=== PATIENT | female | born 1945 | race American Indian/Alaskan Native ===

== ENCOUNTER 2016-06-07 14:02 | Emergency (ER) | payer MEDICARE ==
[2016-06-07] MEDS ORDERED: ClonazePAM 0.5 MG Tab PO ONE (14:21)
[2016-06-07 14:24] VITALS: BP 186/106
--- NOTE | 2016-06-07 14:27 | EDM.PDOC ---
ED HPI Behavioral Health - General Chief Complaint: Behavioral/Psych Stated Complaint: [id number] ANXIETY FELLS LIKE GOING TO PASS OUT Time Seen by Provider: 06/07/16 14:15 Source of Information: Reports: Patient Exam Limitations: Reports: No limitations - History of Present Illness INITIAL COMMENTS - FREE TEXT/NARRATIVE: This 70 yo female patient reports to the ED due to increased anxiety. The patient reports she ran out of Clonazepam and is feeling very anxious. The patient reports she normally sees her primary care facility every 3 months and is scheduled for an appointment next month. The patient reports she is supposed to be taking her Clonazepam 2 times per day, but has been taking an extra dose due to increased depression due to the holiday. The patient reports she has not been on any other medications for her symptoms. The patient also reports she has noticed some pain when she uses the bathroom over the past 2 days. Onset of Symptoms: Reports: gradual Duration of Symptoms: Reports: Constant, Getting worse Severity: severe Context, Behavioral Health: Reports: other Associated Symptoms: Reports: anxiety, depression - SAD Persons Scale (SPS) SPS Sex: Female SPS Age: Greater Than 65 Years of Age SPS Depression: Yes SPS Previous Suicide Attempts: No SPS Alcohol Abuse/Drug Abuse: No SPS Rational Thinking Loss: No SPS Social Support Deficit: No SPS Organized Suicide Plan: No SPS No Spouse/Significant Other: Yes SPS Sickness: No SPS Sad Person Scale Score: 3 - Related Data Allergies Allergy/AdvReac Type Severity Reaction Status Date / Time codeine Allergy Nausea and Verified 06/07/16 14:24 Vomiting ibuprofen [From Motrin] Allergy Stomach Verified 06/07/16 14:24 Upset NSAIDS (Non-Steroidal Allergy Cannot Verified 06/07/16 14:24 Anti-Inflamma Remember propoxyphene HCl Allergy Dizziness Verified 06/07/16 14:24 [From Darvon] Home Medications: Home Meds Fenofibric Acid (Choline) [Fenofibric Acid] 135 mg PO DAILY 02/02/13 [History] Metoprolol Tartrate 25 mg PO DAILY 02/02/13 [History] Simvastatin [Zocor] 40 mg PO BEDTIME 02/02/13 [History] Pregabalin [Lyrica] 1 tab PO BID 11/26/13 [History] Aspirin [Ecotrin] 325 mg PO DAILY 04/16/16 [History] Insulin Detemir [Levemir] 15 unit SQ BID 04/16/16 [History] Levothyroxine Sodium [Synthroid] 0.1 mg PO DAILY 04/16/16 [History] Magnesium Oxide 400 mg PO DAILY 04/16/16 [History] Promethazine [Phenergan] 25 mg PO Q8HR PRN 04/16/16 [History] clonazePAM [Clonazepam] 1 mg PO BID 04/16/16 [History] Past Medical History HEENT History: Reports: Hard of hearing, Other (see below) Other HEENT History: broken ear drum right ear Cardiovascular History: Reports: Bypass, CAD, High cholesterol Respiratory History: Reports: None Gastrointestinal History: Reports: None Genitourinary History: Reports: Other (see below) Other Genitourinary History: sees a kidney MD at [facility] and was told her kidneys are "ok" 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 Unsure of insulin's name. Hematologic History: Reports: None Immunologic History: Reports: None Oncologic (Cancer) History: Reports: None Dermatologic History: Reports: None - Infectious Disease History Infectious Disease History: Reports: Chicken pox - Past Surgical History HEENT Surgical History: Reports: Cataract surgery Other HEENT Surgeries/Procedures: right eye GI Surgical History: Reports: None Social & Family History - Family History Family Medical History: Noncontributory - Tobacco Use Smoking Status *Q: Current Every Day Smoker Years of Tobacco use: 50 Packs/Tins Daily: 0.7 Used Tobacco, but Quit: No Month Tobacco Last Used: May Second Hand Smoke Exposure: No - Caffeine Use Caffeine Use: Reports: Coffee - Alcohol Use Days Per Week of Alcohol Use: 0 - Recreational Drug Use Recreational Drug Use: No - Living Situation & Occupation Living situation: Reports: single ED ROS GENERAL - Review of Systems Review Of Systems: ROS reveals no pertinent complaints other than HPI. ED EXAM, BEHAVIORAL HEALTH - Physical Exam Exam: See Below Exam Limited By: No limitations General Appearance: alert, WD/WN, anxious, mild distress, thin Eye Exam: bilateral eye: EOMI, normal inspection, PERRL Ears: normal external exam, normal canal, hearing grossly normal, normal TMs Nose: normal inspection, normal mucosa, no blood Throat/Mouth: Normal inspection, Normal lips, Normal teeth, Normal gums, Normal oropharynx, Normal voice, No airway compromise Head: atraumatic, normocephalic Neck: normal inspection, supple, non-tender, full range of motion Respiratory/Chest: no respiratory distress, lungs clear, normal breath sounds, no accessory muscle use, chest non-tender Cardiovascular: normal peripheral pulses, regular rate, rhythm, no edema, no gallop, no JVD, no murmur, no rub GI/Abdominal: normal bowel sounds, soft, tender (mild lower abdominal tenderness to palpation.) (Female) Exam: Deferred Rectal (Female) Exam: Deferred Back Exam: normal inspection, full range of motion, NT Extremities: normal inspection, normal range of motion, non-tender, normal capillary refill, no pedal edema Neurological: alert, normal mood/affect, CN II-XII intact, normal cognition, no motor/sensory deficits, oriented x 3 Psychiatric: tearful, agitated Skin Exam: Warm, Dry, Normal color, No rash COURSE, BEHAVIORAL HEALTH COMP - Course Vital Signs: Last Vital Signs Temp 36.8 C 06/07/16 14:18 Pulse 90 06/07/16 14:18 Resp 22 H 06/07/16 14:18 BP 186/106 H 06/07/16 14:18 Pulse Ox 97 06/07/16 14:18 Orders, Labs, Meds: Laboratory Tests 06/07/16 06/07/16 06/07/16 Range/Units 14:32 14:32 14:44 WBC 7.8 (5.0-10.0) 10^3/uL RBC 5.41 H (4.2-5.4) 10^6/uL Hgb 16.1 H (12.0-16.0) g/dL Hct 48.6 H (37.0-47.0) % MCV 89.8 (80-100) fL MCH 29.8 (27.0-34.0) pg MCHC 33.1 (33.0-35.0) g/dL Plt Count 273 (150-450) 10^3/uL Neut % (Auto) 67.8 (42.2-75.2) % Lymph % (Auto) 25.7 (20.5-50.1) % [place] % (Auto) 4.2 (2-8) % Eos % (Auto) 1.7 (1.0-3.0) % Baso % (Auto) 0.6 (0.0-1.0) % Sodium 137 (135-145) mmol/L Potassium 4.3 (3.6-5.0) mmol/L Chloride 99 L (101-111) mmol/L Carbon Dioxide 28.0 (21.0-31.0) mmol/L Anion Gap 14.3 BUN 28 H (7-18) mg/dL Creatinine 1.5 H (0.6-1.3) mg/dL Est Cr Clr Drug Dosing TNP Estimated GFR (MDRD) 34 BUN/Creatinine Ratio 18.66 Glucose 215 H (74-105) mg/dL Calcium 9.3 (8.4-10.2) mg/dl Total Bilirubin 0.6 (0.2-1.0) mg/dL AST 24 (10-42) IU/L ALT 20 (10-60) IU/L Alkaline Phosphatase 46 (42-121) IU/L Total Protein 7.5 (6.7-8.2) g/dl Albumin 4.4 (3.2-5.5) g/dl Globulin 3.1 Albumin/Globulin Ratio 1.42 Urine Color Yellow (YELLOW) Urine Appearance Slightly cloudy (CLEAR) Urine pH 6.0 (5.0-9.0) Ur Specific [place] 1.020 (1.005-1.030) Urine Protein 100 H (NEGATIVE) Urine Glucose (UA) Negative (NEGATIVE) Urine Ketones Negative (NEGATIVE) Urine Occult Blood Trace-intact H (NEGATIVE) Urine Nitrite Negative (NEGATIVE) Urine Bilirubin Negative (NEGATIVE) Urine Urobilinogen 0.2 (0.2-1.0) mg/dL Ur Leukocyte Esterase Trace H (NEGATIVE) Urine RBC 0-5 /HPF Urine WBC 5-10 H (0-5/HPF) /HPF Ur Epithelial Cells Few /HPF Amorphous Sediment Few (0/HPF) /HPF Urine Bacteria Few (0-FEW/HPF) /HPF Medications Discontinued Medications Generic Name Dose Route Start Last Admin Trade Name Freq PRN Reason Stop Dose Admin Clonazepam 0.5 mg 06/07/16 14:21 06/07/16 14:34 Klonopin PO 06/07/16 14:22 0.5 mg ONETIME ONE Administration Departure - Departure Time of Disposition: 15:31 Disposition: Home, Self-Care 01 Condition: fair Clinical Impression: Anxiety, UTI, Urinary tract infectious disease Instructions: Panic Attacks, [id number], Urinary Tract Infection, Adult Forms: ED Department Discharge Care Plan Goals: The patient was advised of the examination and lab results during the visit. The patient was given an oral dose of Conazepam while in the emergency department. The patient was discharged with a script for Keflex (500 mg) #10 to take 1 by mouth 2 times per day for 5 days and Clonazepam (1 mg) #3 to take 1 by mouth every 8 hours. The patient should follow-up with her primary care facility within the week for continued evaluation and management.
[2016-06-07 14:58] LABS: CHLORIDE,CL 99 mmol/L (101-111); SODIUM,NA 137 mmol/L (135-145)
== END 2016-06-07 15:45 | disposition home or self-care (01) ==
LOC: DL.ED 14:02
DX: F41.9 Anxiety disorder, unspecified (principal); N39.0 Urinary tract infection, site not specified; F17.210 Nicotine dependence, cigarettes, uncomplicated; E11.9 Type 2 diabetes mellitus without complications; E03.9 Hypothyroidism, unspecified; E78.00 Pure hypercholesterolemia, unspecified; M19.90 Unspecified osteoarthritis, unspecified site; I25.10 Atherosclerotic heart disease of native coronary artery without angina pectoris; Z79.899 Other long term (current) drug therapy; Z79.82 Long term (current) use of aspirin; Z79.4 Long term (current) use of insulin; Z88.5 Allergy status to narcotic agent; Z98.49 Cataract extraction status, unspecified eye
CPT/HCPCS: 36415; 80053; 81001; 85025; 99283; A9270

== ENCOUNTER 2016-09-07 18:13 | Emergency (ER) | payer MEDICARE ==
[2016-09-07 18:23] VITALS: BP 127/70
--- NOTE | 2016-09-07 18:42 | EDM.PDOC ---
<Sundeep Olivas M - Last Filed: 09/07/16 18:36> ED HPI GENERAL MEDICAL PROBLEM - General Chief Complaint: General Stated Complaint: COMING IN OWN VEHICLE, VERY SICK Time Seen by Provider: 09/07/16 18:30 Source of Information: Reports: Patient History Limitations: Reports: No Limitations - History of Present Illness INITIAL COMMENTS - FREE TEXT/NARRATIVE: This 70 yo female patient reports to the ED with a cough (2 days), shortness of breath (2 days), nausea (2 days) and drainage from her right ear (1 week). The patient reports she was going to go to the clinic today, but she fell asleep. When she woke up, the clinic was closed. The patient reports she continues to smoke with no intention of quitting. The patient reports she has been taking Phenergan at home for her nausea. The patient reports she has not eaten anything since yesterday and has attempted to drink fluids. 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) (Phenergan (last dose 1000 today)) - Related Data Allergies Allergy/AdvReac Type Severity Reaction Status Date / Time codeine Allergy Nausea and Verified 09/07/16 18:23 Vomiting ibuprofen [From Motrin] Allergy Stomach Verified 09/07/16 18:23 Upset NSAIDS (Non-Steroidal Allergy Cannot Verified 09/07/16 18:23 Anti-Inflamma Remember propoxyphene HCl Allergy Dizziness Verified 09/07/16 18:23 [From Darvon] Home Meds: Home Meds Fenofibric Acid (Choline) [Fenofibric Acid] 135 mg PO DAILY 02/02/13 [History] Metoprolol Tartrate 25 mg PO DAILY 02/02/13 [History] Simvastatin [Zocor] 40 mg PO BEDTIME 02/02/13 [History] Pregabalin [Lyrica] 1 tab PO BID 11/26/13 [History] Aspirin [Ecotrin] 325 mg PO DAILY 04/16/16 [History] Insulin Detemir [Levemir] 14.5 unit SQ BID 04/16/16 [History] Levothyroxine Sodium [Synthroid] 0.1 mg PO DAILY 04/16/16 [History] Magnesium Oxide 400 mg PO DAILY 04/16/16 [History] Promethazine [Phenergan] 25 mg PO Q8HR PRN 04/16/16 [History] clonazePAM [Clonazepam] 1 mg PO BID 04/16/16 [History] Past Medical History HEENT History: Reports: Hard of Hearing, Other (See Below) Other HEENT History: broken ear drum right ear Cardiovascular History: Reports: Bypass, CAD, High Cholesterol Respiratory History: Reports: None Gastrointestinal History: Reports: None Genitourinary History: Reports: Other (See Below) Other Genitourinary History: sees a kidney MD at [facility] and was told her kidneys are "ok" 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 Unsure of insulin's name. Hematologic History: Reports: None Immunologic History: Reports: None Oncologic (Cancer) History: Reports: None Dermatologic History: Reports: None - Infectious Disease History Infectious Disease History: Reports: Chicken Pox - Past Surgical History HEENT Surgical History: Reports: Cataract Surgery GI Surgical History: Reports: None Social & Family History - Family History Family Medical History: Noncontributory - Tobacco Use Smoking Status *Q: Current Every Day Smoker Years of Tobacco use: 50 Packs/Tins Daily: 0.7 Used Tobacco, but Quit: No Month Tobacco Last Used: May Second Hand Smoke Exposure: No - Caffeine Use Caffeine Use: Reports: Coffee - Alcohol Use Days Per Week of Alcohol Use: 0 - Recreational Drug Use Recreational Drug Use: No - Living Situation & Occupation Living situation: Reports: Single ED ROS GENERAL - Review of Systems Review Of Systems: ROS reveals no pertinent complaints other than HPI. ED EXAM, GENERAL - Physical Exam Exam: See Below Exam Limited By: No Limitations General Appearance: Alert, WD/WN, Moderate Distress Eye Exam: Bilateral Eye: EOMI, Normal Inspection, PERRL Ears: Normal External Exam, Normal Canal, Hearing Grossly Normal, Other (Right TM is perforated with a small amount of fluid visible in canal) Nose: Normal Inspection, Normal Mucosa, No Blood Throat/Mouth: Normal Inspection, Normal Lips, Normal Teeth, Normal Gums, Normal Oropharynx, Normal Voice, No Airway Compromise Head: Atraumatic, Normocephalic Neck: Normal Inspection, Supple, Non-Tender, Full Range of Motion Respiratory/Chest: Chest Non-Tender, Decreased Breath Sounds (throughout), Rhonchi (diffuse) Cardiovascular: Normal Peripheral Pulses, Regular Rate, Rhythm, No Edema, No Gallop, No JVD, No Murmur, No Rub GI/Abdominal: Normal Bowel Sounds, Soft, Non-Tender, No Organomegaly, No Distention, No Abnormal Bruit, No Mass (Female) Exam: Deferred Rectal (Female) Exam: Deferred Back Exam: Normal Inspection, Full Range of Motion, NT Extremities: Normal Inspection, Normal Range of Motion, Non-Tender, Normal Capillary Refill, No Pedal Edema Neurological: Alert, Oriented, CN II-XII Intact, Normal Cognition, Normal Gait, No Motor/Sensory Deficits Psychiatric: Normal Affect, Normal Mood Skin Exam: Warm, Dry, Intact, Normal Color, No Rash Lymphatic: No Adenopathy Course - Vital Signs Last Recorded V/S: Last Vital Signs Temp 97.4 F 09/07/16 18:19 Pulse 83 09/07/16 18:19 Resp 16 09/07/16 18:19 BP 127/70 09/07/16 18:19 Pulse Ox 96 09/07/16 18:19 - Orders/Labs/Meds Labs: Laboratory Tests 09/07/16 09/07/16 09/07/16 Range/Units 18:50 18:50 18:55 WBC 9.3 (5.0-10.0) 10^3/uL RBC 5.60 H (4.2-5.4) 10^6/uL Hgb 16.4 H (12.0-16.0) g/dL Hct 50.2 H (37.0-47.0) % MCV 89.6 (80-100) fL MCH 29.3 (27.0-34.0) pg MCHC 32.7 L (33.0-35.0) g/dL Plt Count 311 (150-450) 10^3/uL Neut % (Auto) 61.9 (42.2-75.2) % Lymph % (Auto) 31.0 (20.5-50.1) % [place] % (Auto) 5.6 (2-8) % Eos % (Auto) 1.1 (1.0-3.0) % Baso % (Auto) 0.4 (0.0-1.0) % Sodium 140 (135-145) mmol/L Potassium 5.1 H (3.6-5.0) mmol/L Chloride 102 (101-111) mmol/L Carbon Dioxide 25.0 (21.0-31.0) mmol/L Anion Gap 18.1 BUN 21 H (7-18) mg/dL Creatinine 1.5 H (0.6-1.3) mg/dL Est Cr Clr Drug Dosing 27.60 mL/min Estimated GFR (MDRD) 34 BUN/Creatinine Ratio 14.00 Glucose 116 H (74-105) mg/dL Calcium 9.6 (8.4-10.2) mg/dl Total Bilirubin 0.7 (0.2-1.0) mg/dL AST 23 (10-42) IU/L ALT 19 (10-60) IU/L Alkaline Phosphatase 49 (42-121) IU/L Total Protein 7.3 (6.7-8.2) g/dl Albumin 4.3 (3.2-5.5) g/dl Globulin 3.0 Albumin/Globulin Ratio 1.43 Urine Color Dark yellow (YELLOW) Urine Appearance Cloudy (CLEAR) Urine pH 7.0 (5.0-9.0) Ur Specific [place] 1.020 (1.005-1.030) Urine Protein 100 H (NEGATIVE) Urine Glucose (UA) Negative (NEGATIVE) Urine Ketones Negative (NEGATIVE) Urine Occult Blood Negative (NEGATIVE) Urine Nitrite Negative (NEGATIVE) Urine Bilirubin Small H (NEGATIVE) Urine Urobilinogen 1.0 (0.2-1.0) mg/dL Ur Leukocyte Esterase Small H (NEGATIVE) Urine RBC 0-5 /HPF Urine WBC 10-20 H (0-5/HPF) /HPF Ur Epithelial Cells Few /HPF Urine Bacteria Moderate H (0-FEW/HPF) /HPF Hyaline Casts Rare H /LPF Urine Other See note Meds: Medications Discontinued Medications Generic Name Dose Route Start Last Admin Trade Name Freq PRN Reason Stop Dose Admin Benzonatate 200 mg 09/07/16 19:33 09/07/16 19:45 Tessalon Perles PO 09/07/16 19:34 200 mg ONETIME ONE Administration Ceftriaxone Sodium 1 gm/ 0 gm 09/07/16 19:33 09/07/16 19:46 Lidocaine HCl 2.1 ml IM 09/07/16 19:34 1 inj ONETIME ONE Administration Departure - Departure Disposition: Home, Self-Care 01 Clinical Impression: UTI, Urinary tract infectious disease Left lower lobe pneumonia Qualifiers: Pneumonia type: due to unspecified organism Qualified Code(s): J18.1 - Lobar pneumonia, unspecified organism Otitis media Qualifiers: Otitis media type: serous Chronicity: unspecified Laterality: right Qualified Code(s): H65.91 - Unspecified nonsuppurative otitis media, right ear - Discharge Information Instructions: Community-Acquired Pneumonia, Adult, Urinary Tract Infection, Adult Forms: ED Department Discharge Additional Instructions: augmentin 875 one twice daily for 10 days tesselon pearles 200mg one every 8 hours as needed for cough recheck clinic on Tuesday with potassium level Follow up sooner if difficulty breathing or fever uncontrolled with tylenol <Loan Gómez - Last Filed: 09/08/16 04:10> Course - Orders/Labs/Meds Meds: Medications Discontinued Medications Generic Name Dose Route Start Last Admin Trade Name Yoniq PRN Reason Stop Dose Admin Benzonatate 200 mg 09/07/16 19:33 09/07/16 19:45 Tessalon Perles PO 09/07/16 19:34 200 mg ONETIME ONE Administration Ceftriaxone Sodium 1 gm/ 0 gm 09/07/16 19:33 09/07/16 19:46 Lidocaine HCl 2.1 ml IM 09/07/16 19:34 1 inj ONETIME ONE Administration - Radiology Interpretation Free Text/Narrative:: CXR mild opacity in Left lower lobe may represent atelectasis or pneumonia Departure - Departure Time of Disposition: 19:27 Condition: Fair
[2016-09-07] MEDS ORDERED: cefTRIAXone 1 GM, Lidocaine 1% 2.1 ML IM ONE ×2 (19:33)
[2016-09-07] MEDS ORDERED: Benzonatate 100 MG Cap PO ONE (19:33)
== END 2016-09-07 20:02 | disposition home or self-care (01) ==
LOC: DL.ED 18:13
DX: J18.9 Pneumonia, unspecified organism (principal); N39.0 Urinary tract infection, site not specified; H65.91 Unspecified nonsuppurative otitis media, right ear; I25.10 Atherosclerotic heart disease of native coronary artery without angina pectoris; E78.00 Pure hypercholesterolemia, unspecified; Z95.1 Presence of aortocoronary bypass graft; M19.90 Unspecified osteoarthritis, unspecified site; E11.9 Type 2 diabetes mellitus without complications; E03.9 Hypothyroidism, unspecified; F41.9 Anxiety disorder, unspecified; F17.210 Nicotine dependence, cigarettes, uncomplicated; Z98.49 Cataract extraction status, unspecified eye; Z88.5 Allergy status to narcotic agent; Z88.6 Allergy status to analgesic agent; Z79.899 Other long term (current) drug therapy; Z79.82 Long term (current) use of aspirin
CPT/HCPCS: 36415; 71020; 80053; 81001; 85025; 96372; 99284; A9270; J0696

== ENCOUNTER 2017-02-24 06:23 | Emergency (ER) | payer MEDICARE ==
[2017-02-24] MEDS ORDERED: ClonazePAM 0.5 MG Tab PO ONE ×2 (06:46→08:25)
[2017-02-24] MEDS ORDERED: Sodium Chloride 0.9% 1,000 ML IV ONE (06:46)
[2017-02-24] MEDS ORDERED: Ondansetron 4 MG/2 ML SDV IV ONE (06:46)
--- NOTE | 2017-02-24 06:53 | EDM.PDOC ---
<Sundeep Olivas M - Last Filed: 02/24/17 06:48> ED HPI GENERAL MEDICAL PROBLEM - General Chief Complaint: General Stated Complaint: IN BY AMBULANCE Time Seen by Provider: 02/24/17 06:40 Source of Information: Reports: Patient, EMS History Limitations: Reports: No Limitations - History of Present Illness INITIAL COMMENTS - FREE TEXT/NARRATIVE: This 71 yo female patient was brought to the ED by [facility] due to increased nausea , weakness and her legs "picking". The patient states her symptoms started last night at 1800, she has been able to eat and drink, but just feels weak. The patient does admit to running out of her nerve medication. Onset Date: 02/23/17 Onset Time: 18:00 Duration: Constant Location: Reports: Generalized Quality: Reports: Other Severity: Moderate Improves with: Reports: None Worsens with: Reports: None Associated Symptoms: Reports: Nausea/Vomiting (vomiting x 1), Weakness - Related Data Allergies Allergy/AdvReac Type Severity Reaction Status Date / Time codeine Allergy Nausea and Verified 09/07/16 18:23 Vomiting ibuprofen [From Motrin] Allergy Stomach Verified 09/07/16 18:23 Upset NSAIDS (Non-Steroidal Allergy Cannot Verified 09/07/16 18:23 Anti-Inflamma Remember propoxyphene HCl Allergy Dizziness Verified 09/07/16 18:23 [From Darvon] Home Meds: Home Meds Fenofibric Acid (Choline) [Fenofibric Acid] 135 mg PO DAILY 02/02/13 [History] Metoprolol Tartrate 25 mg PO DAILY 02/02/13 [History] Simvastatin [Zocor] 40 mg PO BEDTIME 02/02/13 [History] Pregabalin [Lyrica] 1 tab PO BID 11/26/13 [History] Aspirin [Ecotrin] 325 mg PO DAILY 04/16/16 [History] Insulin Detemir [Levemir] 14.5 unit SQ BID 04/16/16 [History] Levothyroxine Sodium [Synthroid] 0.1 mg PO DAILY 04/16/16 [History] Magnesium Oxide 400 mg PO DAILY 04/16/16 [History] Promethazine [Phenergan] 25 mg PO Q8HR PRN 04/16/16 [History] clonazePAM [Clonazepam] 1 mg PO BID 04/16/16 [History] Past Medical History HEENT History: Reports: Hard of Hearing, Other (See Below) Other HEENT History: broken ear drum right ear Cardiovascular History: Reports: Bypass, CAD, High Cholesterol Respiratory History: Reports: None Gastrointestinal History: Reports: None Genitourinary History: Reports: Other (See Below) Other Genitourinary History: sees a kidney MD at 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 Unsure of insulin's name. Hematologic History: Reports: None Immunologic History: Reports: None Oncologic (Cancer) History: Reports: None Dermatologic History: Reports: None - Infectious Disease History Infectious Disease History: Reports: Chicken Pox - Past Surgical History HEENT Surgical History: Reports: Cataract Surgery GI Surgical History: Reports: None Social & Family History - Family History Family Medical History: Noncontributory - Tobacco Use Smoking Status *Q: Current Every Day Smoker Years of Tobacco use: 55 Packs/Tins Daily: 0.5 Used Tobacco, but Quit: No Month Tobacco Last Used: May Second Hand Smoke Exposure: No - Caffeine Use Caffeine Use: Reports: Coffee - Alcohol Use Days Per Week of Alcohol Use: 0 - Recreational Drug Use Recreational Drug Use: No - Living Situation & Occupation Living situation: Reports: Single ED ROS GENERAL - Review of Systems Review Of Systems: ROS reveals no pertinent complaints other than HPI. ED EXAM, GENERAL - Physical Exam Exam: See Below Exam Limited By: No Limitations General Appearance: Alert, WD/WN, Mild Distress, Obese Eye Exam: Bilateral Eye: EOMI, Normal Inspection, PERRL Ears: Normal External Exam, Normal Canal, Hearing Grossly Normal, Normal TMs Nose: Normal Inspection, Normal Mucosa, No Blood Throat/Mouth: Normal Inspection, Normal Lips, Normal Teeth, Normal Gums, Normal Oropharynx, Normal Voice, No Airway Compromise Head: Atraumatic, Normocephalic Neck: Normal Inspection, Supple, Non-Tender, Full Range of Motion Respiratory/Chest: No Respiratory Distress, Lungs Clear, Normal Breath Sounds, No Accessory Muscle Use, Chest Non-Tender Cardiovascular: Normal Peripheral Pulses, Regular Rate, Rhythm, No Edema, No Gallop, No JVD, No Murmur, No Rub GI/Abdominal: Normal Bowel Sounds, Soft, Non-Tender, No Organomegaly, No Distention, No Abnormal Bruit, No Mass (Female) Exam: Deferred Rectal (Female) Exam: Deferred Back Exam: Normal Inspection, Full Range of Motion, NT Extremities: Normal Inspection, Normal Range of Motion, Non-Tender, Normal Capillary Refill, No Pedal Edema Neurological: Alert, Oriented, CN II-XII Intact, Normal Cognition, Normal Gait, Normal Reflexes, No Motor/Sensory Deficits Psychiatric: Normal Affect, Normal Mood Skin Exam: Warm, Dry, Intact, Normal Color, No Rash Lymphatic: No Adenopathy Course - Vital Signs Last Recorded V/S: Last Vital Signs Temp 36.7 C 02/24/17 06:33 Pulse 72 02/24/17 07:56 Resp 18 02/24/17 07:56 BP 152/56 H 02/24/17 07:56 Pulse Ox 90 L 02/24/17 07:56 - Orders/Labs/Meds Orders: Active Orders 24 hr Category Date Time Status EKG Documentation Completion [RC] URGENT Care 02/24/17 06:33 Active Sodium Chloride 0.9% [Normal Saline] 1,000 ml Med 02/24/17 06:46 Active IV .BOLUS Medication Orders Sodium Chloride (Normal Saline) 1,000 mls @ 500 mls/hr IV .BOLUS ONE Stop: 02/24/17 08:45 Last Admin: 02/24/17 06:49 Dose: 500 mls/hr Labs: Laboratory Tests 02/24/17 02/24/17 02/24/17 Range/Units 06:35 06:35 07:35 WBC 10.5 H (5.0-10.0) 10^3/uL RBC 5.26 (4.2-5.4) 10^6/uL Hgb 15.4 (12.0-16.0) g/dL Hct 47.7 H (37.0-47.0) % MCV 90.7 (80-100) fL MCH 29.3 (27.0-34.0) pg MCHC 32.3 L (33.0-35.0) g/dL Plt Count 229 D (150-450) 10^3/uL Neut % (Auto) 72.7 (42.2-75.2) % Lymph % (Auto) 19.0 L (20.5-50.1) % [place] % (Auto) 3.7 (2-8) % Eos % (Auto) 4.0 H (1.0-3.0) % Baso % (Auto) 0.6 (0.0-1.0) % Sodium 136 (135-145) mmol/L Potassium 4.1 (3.6-5.0) mmol/L Chloride 100 L (101-111) mmol/L Carbon Dioxide 26.0 (21.0-31.0) mmol/L Anion Gap 14.1 BUN 21 H (7-18) mg/dL Creatinine 1.3 (0.6-1.3) mg/dL Est Cr Clr Drug Dosing TNP Estimated GFR (MDRD) 40 BUN/Creatinine Ratio 16.15 Glucose 276 H (74-105) mg/dL Calcium 8.7 (8.4-10.2) mg/dl Total Bilirubin 0.5 (0.2-1.0) mg/dL AST 29 (10-42) IU/L ALT 27 (10-60) IU/L Alkaline Phosphatase 91 (42-121) IU/L Troponin I < 0.02 (0.00-0.02) ng/ml Total Protein 6.8 (6.7-8.2) g/dl Albumin 3.6 (3.2-5.5) g/dl Globulin 3.2 Albumin/Globulin Ratio 1.13 Urine Color Yellow (YELLOW) Urine Appearance Cloudy (CLEAR) Urine pH 6.0 (5.0-9.0) Ur Specific [place] 1.025 (1.005-1.030) Urine Protein >=300 H (NEGATIVE) Urine Glucose (UA) Negative (NEGATIVE) Urine Ketones Negative (NEGATIVE) Urine Occult Blood Small H (NEGATIVE) Urine Nitrite Negative (NEGATIVE) Urine Bilirubin Negative (NEGATIVE) Urine Urobilinogen 0.2 (0.2-1.0) mg/dL Ur Leukocyte Esterase Trace H (NEGATIVE) Urine RBC 5-10 H /HPF Urine WBC 10-20 H (0-5/HPF) /HPF Ur Epithelial Cells Many H /HPF Urine Bacteria Moderate H (0-FEW/HPF) /HPF Urinalysis Comment Meds: Medications Generic Name Dose Route Start Last Admin Trade Name Freq PRN Reason Stop Dose Admin Sodium Chloride 1,000 mls @ 500 mls/hr 02/24/17 06:46 02/24/17 06:49 Normal Saline IV 02/24/17 08:45 500 mls/hr .BOLUS ONE Administration Discontinued Medications Generic Name Dose Route Start Last Admin Trade Name Freq PRN Reason Stop Dose Admin Clonazepam 0.5 mg 02/24/17 06:46 02/24/17 06:56 Klonopin PO 02/24/17 06:47 0.5 mg ONETIME ONE Administration Ondansetron HCl 4 mg 02/24/17 06:46 02/24/17 06:50 Zofran IV 02/24/17 06:47 4 mg ONETIME ONE Administration Departure - Departure Disposition: Home, Self-Care 01 Clinical Impression: Nausea and vomiting Qualifiers: Vomiting type: unspecified Vomiting Intractability: non-intractable Qualified Code(s): R11.2 - Nausea with vomiting, unspecified Benzodiazepine withdrawal Qualifiers: Complication of substance-induced condition: with unspecified complication Qualified Code(s): F13.239 - Sedative, hypnotic or anxiolytic dependence with withdrawal, unspecified - Discharge Information Instructions: Nausea and Vomiting, Adult, [id number] Forms: ED Department Discharge Additional Instructions: Rx: Clonazepam 1mg Rx: Zofran 4mg Follow up in clinic with your doctor for your medication refill and clonazepam management. <CathyPaul Michael - Last Filed: 02/24/17 08:22> ED HPI GENERAL MEDICAL PROBLEM - General Source of Information: Reports: Old Records, RN, RN Notes Reviewed - History of Present Illness INITIAL COMMENTS - FREE TEXT/NARRATIVE: Assumed care of pt from Sundeep SUNG at 0700HR shift change with pt feeling improved following tx in ER, but with lab results pending. Pt primarily concerned because she ran out of her clonazepam and that usually never happens to her because she follows closely with her doctor for medication management, but somehow with the holidays she ran out. Onset: Gradual ED EXAM, GENERAL - Physical Exam Exam Limited By: Other (No change to exam as documented by Sundeep SUNG for this encounter.) EKG INTERPRETATION EKG Date: 02/24/17 Time: 06:25 Rhythm: Other (SR) Rate (Beats/Min): 76 Arnold: Normal P-Wave: Present QRS: Normal ST-T: Other (borderline T wave abnl. in inferior leads) QT: Normal Comparison: NA - No Prior EKG EKG Interpretation Comments: No acute ischemic changes. Course - Orders/Labs/Meds Labs: Laboratory Tests 02/24/17 02/24/17 02/24/17 Range/Units 06:35 06:35 07:35 WBC 10.5 H (5.0-10.0) 10^3/uL RBC 5.26 (4.2-5.4) 10^6/uL Hgb 15.4 (12.0-16.0) g/dL Hct 47.7 H (37.0-47.0) % MCV 90.7 (80-100) fL MCH 29.3 (27.0-34.0) pg MCHC 32.3 L (33.0-35.0) g/dL Plt Count 229 D (150-450) 10^3/uL Neut % (Auto) 72.7 (42.2-75.2) % Lymph % (Auto) 19.0 L (20.5-50.1) % [place] % (Auto) 3.7 (2-8) % Eos % (Auto) 4.0 H (1.0-3.0) % Baso % (Auto) 0.6 (0.0-1.0) % Sodium 136 (135-145) mmol/L Potassium 4.1 (3.6-5.0) mmol/L Chloride 100 L (101-111) mmol/L Carbon Dioxide 26.0 (21.0-31.0) mmol/L Anion Gap 14.1 BUN 21 H (7-18) mg/dL Creatinine 1.3 (0.6-1.3) mg/dL Est Cr Clr Drug Dosing TNP Estimated GFR (MDRD) 40 BUN/Creatinine Ratio 16.15 Glucose 276 H (74-105) mg/dL Calcium 8.7 (8.4-10.2) mg/dl Total Bilirubin 0.5 (0.2-1.0) mg/dL AST 29 (10-42) IU/L ALT 27 (10-60) IU/L Alkaline Phosphatase 91 (42-121) IU/L Troponin I < 0.02 (0.00-0.02) ng/ml Total Protein 6.8 (6.7-8.2) g/dl Albumin 3.6 (3.2-5.5) g/dl Globulin 3.2 Albumin/Globulin Ratio 1.13 Urine Color Yellow (YELLOW) Urine Appearance Cloudy (CLEAR) Urine pH 6.0 (5.0-9.0) Ur Specific [place] 1.025 (1.005-1.030) Urine Protein >=300 H (NEGATIVE) Urine Glucose (UA) Negative (NEGATIVE) Urine Ketones Negative (NEGATIVE) Urine Occult Blood Small H (NEGATIVE) Urine Nitrite Negative (NEGATIVE) Urine Bilirubin Negative (NEGATIVE) Urine Urobilinogen 0.2 (0.2-1.0) mg/dL Ur Leukocyte Esterase Trace H (NEGATIVE) Urine RBC 5-10 H /HPF Urine WBC 10-20 H (0-5/HPF) /HPF Ur Epithelial Cells Many H /HPF Urine Bacteria Moderate H (0-FEW/HPF) /HPF Urinalysis Comment Influenza A/B: Negative Departure - Departure Time of Disposition: 08:16 Condition: Good
[2017-02-24 07:02] LABS: CHLORIDE,CL 100 mmol/L (101-111); SODIUM,NA 136 mmol/L (135-145)
[2017-02-24 07:57] VITALS: BP 152/56
--- NOTE | 2017-02-25 10:33 | EKG ---
02/24/2017 - RAVEN ARRINGTON - This 12-lead EKG shows normal sinus rhythm with a ventricular rate of 76. Normal axis and intervals. There are 1 mm Q-waves seen in the inferior leads, but there are no acute ST-T wave changes. Nonspecific T-wave changes in the lateral leads. [facility] /[id number]
== END 2017-02-24 09:00 | disposition home or self-care (01) ==
LOC: DL.ED 06:23
DX: R11.2 Nausea with vomiting, unspecified (principal); F13.239 Sedative, hypnotic or anxiolytic dependence with withdrawal, unspecified; E11.9 Type 2 diabetes mellitus without complications; E78.00 Pure hypercholesterolemia, unspecified; F17.210 Nicotine dependence, cigarettes, uncomplicated; Z88.5 Allergy status to narcotic agent; Z88.6 Allergy status to analgesic agent; Z88.8 Allergy status to other drugs, medicaments and biological substances
CPT/HCPCS: 36415; 80053; 81001; 84484; 85025; 87804; 93005; 93010; 96361; 96374; 99285; A9270; J2405; J7030; 99283

== ENCOUNTER 2017-03-14 06:43 | Day surgery (SDC) | payer MEDICARE, OTHER ==
[~2017-03-14 06:43] MED LIST: Dextrose 5%-0.45% NaCl 1,000 ML IV SCH; Midazolam 1 MG/ML 2 ML SDV ONE; Sodium Chloride 0.9% 10 ML Syringe FLUSH PRN; fentaNYL 100 MCG/2 ML SDV ONE
[2017-03-14] MEDS ORDERED: Midazolam 1 MG/ML 2 ML SDV IV ONE ×6 (06:44→07:45)
[2017-03-14] MEDS ORDERED: fentaNYL 100 MCG/2 ML SDV IV ONE ×3 (06:44→07:38)
[2017-03-14 08:28] VITALS: BP 120/86
--- NOTE | 2017-03-14 09:02 | OR ---
DATE: 03/14/2017 PROCEDURE: Total colonoscopy, NBI, and multiple snare polypectomies. INSTRUMENT USED: CF-H180 AL Olympus video colonoscope. PREMEDICATIONS: Fentanyl 100 mcg intravenous, Versed 4 mg intravenous. Nasal O2 cannula. The procedure was done under pulse oximetry, BP recording, and awning assembler. INDICATION: The patient with Hemoccult positive stools. Colonoscopic examination is done for detection of any polypoid lesions and removal, endoscopic hemostasis therapy if needed. DESCRIPTION OF PROCEDURE: Initial rectal exam showed anal sphincter to be a bit lax. Rigid anoscopy was normal. The colonoscope was passed with ease up to the ileocecal area, photographs were taken of the cecum showing 3 mm sized benign- appearing diminutive polyp, cold snare polypectomy was done, the tissue was retrieved and sent for histopathology. No bleeding was noted from any of the visualized areas at the commencement of the examination. No stricture. No vascular ectasia. No large isolated ulcerations seen. No evidence of diffuse inflammatory bowel disease in the form of friability, contact bleeding, or ulcerations. The examination was quite a bit compromised in a few areas due to the presence of large amount of fecal material that could not be aspirated clear. In the proximal descending colon, couple of 5 mm sized benign-appearing polyps were noted, cold snare polypectomies were done, the tissues were retrieved and sent for histopathology. In the mid sigmoid colon, more than 1 cm partially sessile benign-appearing polyp was noted, NBI views were obtained. Photographs were taken. Piecemeal polypectomy was done, the tissues were retrieved and sent for histopathology. Probing the proximal sides of folds and flexures, using adequate distention and clearing up the stool material, withdrawal of the scope was made. No bleeding was noted from any of the visualized areas at the completion of examination. IMPRESSION: Multiple colonic polyps. The patient tolerated the procedure well. [facility] /[id number]
--- NOTE | 2017-03-14 09:32 | LETTER ---
03/14/2017 YASMEEN H[facility] [address] [place] [address] RE: RAVEN MCKEON : 1945 Dear Ms: Jabari: Ms. Raven Mckeon had colonoscopic examination done this morning and she tolerated the procedure well. I herewith send a copy of the endoscopy note and photographs for your review. Thank you. Sincerely, [facility] /[id number]
== END 2017-03-14 10:47 | disposition home or self-care (01) ==
LOC: DL.ENDO 06:43
PROVIDERS: ATTEND Internal Medicine Gastroenterology
DX: D12.0 Benign neoplasm of cecum (principal); D12.4 Benign neoplasm of descending colon; D12.5 Benign neoplasm of sigmoid colon; E11.22 Type 2 diabetes mellitus with diabetic chronic kidney disease; I12.9 Hypertensive chronic kidney disease with stage 1 through stage 4 chronic kidney disease, or unspecified chronic kidney disease; N18.9 Chronic kidney disease, unspecified; F41.1 Generalized anxiety disorder; E03.9 Hypothyroidism, unspecified; E66.9 Obesity, unspecified; Z88.8 Allergy status to other drugs, medicaments and biological substances; F17.210 Nicotine dependence, cigarettes, uncomplicated; Z95.1 Presence of aortocoronary bypass graft; Z90.49 Acquired absence of other specified parts of digestive tract
CPT/HCPCS: 45385; 88305; J2250; J3010; J7042

== ENCOUNTER 2017-04-24 17:41 | Emergency (ER) | payer MEDICARE, OTHER ==
[2017-04-24] MEDS ORDERED: Ondansetron 4 MG Tab.DIS PO ONE (17:42)
[2017-04-24 17:56] VITALS: BP 115/60
[2017-04-24] MEDS ORDERED: Ondansetron 4 MG/2 ML SDV IV ONE (19:00)
[2017-04-24] MEDS ORDERED: Sodium Chloride 0.9% 1,000 ML IV ONE ×2 (19:00→20:25)
--- NOTE | 2017-04-24 19:07 | EDM.PDOC ---
ED HPI GENERAL MEDICAL PROBLEM - General Chief Complaint: Gastrointestinal Problem Stated Complaint: [id number] throwing up and going to bathroom nauseate Time Seen by Provider: 04/24/17 19:00 Source of Information: Reports: Patient History Limitations: Reports: No Limitations - History of Present Illness INITIAL COMMENTS - FREE TEXT/NARRATIVE: This 71 yo female patient reports to the ED with nausea, vomiting, diarrhea and abdominal pain. The patient reports her symptoms started at 1500 today with 1 episode of vomiting and 4-5 episodes of loose bowel movements. The patient reports she has diffuse abdominal cramping since her symptoms started. The patient reports she has not taken anything for symptom improvement at this time. Onset: Today Onset Date: 04/24/17 Onset Time: 15:00 Duration: Constant Location: Reports: Abdomen Quality: Reports: Other (cramping) Severity: Moderate Improves with: Reports: None Worsens with: Reports: None Associated Symptoms: Reports: Nausea/Vomiting - Related Data Allergies Allergy/AdvReac Type Severity Reaction Status Date / Time amitriptyline [From Elavil] Allergy Cannot Verified 03/14/17 07:12 Remember atenolol Allergy Cannot Verified 03/14/17 07:12 Remember codeine Allergy Nausea and Verified 03/14/17 07:12 Vomiting cyclobenzaprine Allergy Cannot Verified 03/14/17 07:12 [From Flexeril] Remember estradiol [From Estraderm] Allergy Cannot Verified 03/14/17 07:12 Remember ibuprofen [From Motrin] Allergy Stomach Verified 03/14/17 07:12 Upset NSAIDS (Non-Steroidal Allergy Cannot Verified 03/14/17 07:12 Anti-Inflamma Remember propoxyphene HCl Allergy Dizziness Verified 03/14/17 07:12 [From Darvon] trazodone Allergy Cannot Verified 03/14/17 07:12 Remember Home Meds: Home Meds Metoprolol Tartrate 25 mg PO DAILY 02/02/13 [History] Simvastatin [Zocor] 40 mg PO BEDTIME 02/02/13 [History] Pregabalin [Lyrica] 75 mg PO BID 11/26/13 [History] Aspirin [Ecotrin] 325 mg PO DAILY 04/16/16 [History] Insulin Detemir [Levemir] 15 unit SQ BID 04/16/16 [History] Levothyroxine Sodium [Synthroid] 100 mcg PO DAILY 04/16/16 [History] Magnesium Oxide 400 mg PO DAILY 04/16/16 [History] clonazePAM [Clonazepam] 1 mg PO BID PRN 04/16/16 [History] Multivitamin with Minerals [Multiple Vitamin] 1 tab PO DAILY 03/11/17 [History] Ondansetron 4 mg PO Q8H PRN 03/11/17 [History] Past Medical History HEENT History: Reports: Hard of Hearing, Other (See Below) Other HEENT History: broken ear drum right ear, WEARS CORRECTIVE LENS Cardiovascular History: Reports: Bypass, CAD, High Cholesterol, Hypertension Respiratory History: Reports: None Gastrointestinal History: Reports: None Other Gastrointestinal History: peptic ulcer disease Genitourinary History: Reports: Chronic Renal Insuffiency, Other (See Below) Other Genitourinary History: sees a kidney MD at [facility] and was told her kidneys are "ok" 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 Unsure of insulin's name. Hematologic History: Reports: None Immunologic History: Reports: None Oncologic (Cancer) History: Reports: None Dermatologic History: Reports: None - Infectious Disease History Infectious Disease History: Reports: Chicken Pox, Measles - Past Surgical History HEENT Surgical History: Reports: Cataract Surgery, Tonsillectomy Other HEENT Surgeries/Procedures: right eye Cardiovascular Surgical History: Reports: Coronary Artery Bypass Other Cardiovascular Surgeries/Procedures: s/p heart surgery GI Surgical History: Reports: None, Appendectomy, Cholecystectomy, Colonoscopy Female Surgical History: Reports: Section Other Musculoskeletal Surgeries/Procedures:: s/p lumbar spine surgery Social & Family History - Family History Family Medical History: Noncontributory - Tobacco Use Smoking Status *Q: Current Every Day Smoker Years of Tobacco use: 50 Packs/Tins Daily: 0.5 Used Tobacco, but Quit: No Month Tobacco Last Used: May Second Hand Smoke Exposure: No - Caffeine Use Caffeine Use: Reports: Coffee - Alcohol Use Days Per Week of Alcohol Use: 0 - Recreational Drug Use Recreational Drug Use: No Drug Use in Last 12 Months: No - Living Situation & Occupation Living situation: Reports: Single ED ROS GENERAL - Review of Systems Review Of Systems: ROS reveals no pertinent complaints other than HPI. ED EXAM, GI/ABD - Physical Exam Exam: See Below Exam Limited By: No Limitations General Appearance: Alert, WD/WN, Moderate Distress, Obese Eyes: Bilateral: Normal Appearance, EOMI Ears: Normal External Exam, Normal Canal, Hearing Grossly Normal, Normal TMs Nose: Normal Inspection, Normal Mucosa, No Blood Throat/Mouth: Normal Inspection, Normal Lips, Normal Teeth, Normal Gums, Normal Oropharynx, Normal Voice, No Airway Compromise Head: Atraumatic, Normocephalic Neck: Normal Inspection, Supple, Non-Tender, Full Range of Motion Respiratory/Chest: No Respiratory Distress, Lungs Clear, Normal Breath Sounds, No Accessory Muscle Use, Chest Non-Tender Cardiovascular: Normal Peripheral Pulses, Regular Rate, Rhythm, No Edema, No Gallop, No JVD, No Murmur, No Rub GI/Abdominal Exam: Normal Bowel Sounds, Soft, No Organomegaly, No Distention, No Abnormal Bruit, No Mass, Pelvis Stable, Tender (diffuse tenderness) (Female) Exam: Deferred Rectal (Female) Exam: Deferred Back Exam: Normal Inspection, Full Range of Motion, NT Extremities: Normal Inspection, Normal Range of Motion, Non-Tender, Normal Capillary Refill, No Pedal Edema Neurological: Alert, Oriented, CN II-XII Intact, Normal Cognition, Normal Gait, Normal Reflexes, No Motor/Sensory Deficits Psychiatric: Normal Affect, Normal Mood Skin Exam: Warm, Dry, Intact, Normal Color, No Rash Lymphatic: No Adenopathy Course - Vital Signs Last Recorded V/S: Last Vital Signs Temp 37.1 C 04/24/17 17:54 Pulse 93 04/24/17 17:54 Resp 18 04/24/17 17:54 BP 115/60 04/24/17 17:54 Pulse Ox 92 L 04/24/17 17:54 - Orders/Labs/Meds Orders: Active Orders 24 hr Category Date Time Status UA W/MICROSCOPIC [URIN] Stat Lab 04/24/17 19:00 Ordered Sodium Chloride 0.9% [Normal Saline] 1,000 ml Med 04/24/17 20:25 Ordered IV .BOLUS Medication Orders Sodium Chloride (Normal Saline) 1,000 mls @ 500 mls/hr IV .BOLUS ONE Stop: 04/24/17 22:24 Last Admin: 04/24/17 20:30 Dose: 500 mls/hr Labs: Laboratory Tests 04/24/17 04/24/17 04/24/17 Range/Units 18:41 19:08 19:08 WBC 15.2 H (5.0-10.0) 10^3/uL RBC 5.60 H (4.2-5.4) 10^6/uL Hgb 15.9 (12.0-16.0) g/dL Hct 49.3 H (37.0-47.0) % MCV 88.0 (80-100) fL MCH 28.4 (27.0-34.0) pg MCHC 32.3 L (33.0-35.0) g/dL Plt Count 225 (150-450) 10^3/uL Neut % (Auto) 86.5 H (42.2-75.2) % Lymph % (Auto) 7.0 L (20.5-50.1) % [place] % (Auto) 4.0 (2-8) % Eos % (Auto) 2.4 (1.0-3.0) % Baso % (Auto) 0.1 (0.0-1.0) % Sodium 135 (135-145) mmol/L Potassium 4.4 (3.6-5.0) mmol/L Chloride 99 L (101-111) mmol/L Carbon Dioxide 26.0 (21.0-31.0) mmol/L Anion Gap 14.4 BUN 30 H (7-18) mg/dL Creatinine 1.7 H (0.6-1.3) mg/dL Est Cr Clr Drug Dosing 24.01 mL/min Estimated GFR (MDRD) 30 BUN/Creatinine Ratio 17.64 Glucose 197 H (74-105) mg/dL POC Glucose 180 H (83-110) mg/dl Calcium 8.6 (8.4-10.2) mg/dl Total Bilirubin 0.5 (0.2-1.0) mg/dL AST 24 (10-42) IU/L ALT 27 (10-60) IU/L Alkaline Phosphatase 115 (42-121) IU/L Total Protein 6.9 (6.7-8.2) g/dl Albumin 3.6 (3.2-5.5) g/dl Globulin 3.3 Albumin/Globulin Ratio 1.09 Urine Color (YELLOW) Urine Appearance (CLEAR) Urine pH (5.0-9.0) Ur Specific [place] (1.005-1.030) Urine Protein (NEGATIVE) Urine Glucose (UA) (NEGATIVE) Urine Ketones (NEGATIVE) Urine Occult Blood (NEGATIVE) Urine Nitrite (NEGATIVE) Urine Bilirubin (NEGATIVE) Urine Urobilinogen (0.2-1.0) mg/dL Ur Leukocyte Esterase (NEGATIVE) 04/24/17 Range/Units 21:54 WBC (5.0-10.0) 10^3/uL RBC (4.2-5.4) 10^6/uL Hgb (12.0-16.0) g/dL Hct (37.0-47.0) % MCV (80-100) fL MCH (27.0-34.0) pg MCHC (33.0-35.0) g/dL Plt Count (150-450) 10^3/uL Neut % (Auto) (42.2-75.2) % Lymph % (Auto) (20.5-50.1) % [place] % (Auto) (2-8) % Eos % (Auto) (1.0-3.0) % Baso % (Auto) (0.0-1.0) % Sodium (135-145) mmol/L Potassium (3.6-5.0) mmol/L Chloride (101-111) mmol/L Carbon Dioxide (21.0-31.0) mmol/L Anion Gap BUN (7-18) mg/dL Creatinine (0.6-1.3) mg/dL Est Cr Clr Drug Dosing mL/min Estimated GFR (MDRD) BUN/Creatinine Ratio Glucose (74-105) mg/dL POC Glucose (83-110) mg/dl Calcium (8.4-10.2) mg/dl Total Bilirubin (0.2-1.0) mg/dL AST (10-42) IU/L ALT (10-60) IU/L Alkaline Phosphatase (42-121) IU/L Total Protein (6.7-8.2) g/dl Albumin (3.2-5.5) g/dl Globulin Albumin/Globulin Ratio Urine Color Yellow (YELLOW) Urine Appearance Slightly cloudy (CLEAR) Urine pH 5.5 (5.0-9.0) Ur Specific [place] 1.025 (1.005-1.030) Urine Protein >=300 H (NEGATIVE) Urine Glucose (UA) Negative (NEGATIVE) Urine Ketones Trace H (NEGATIVE) Urine Occult Blood Trace-lysed H (NEGATIVE) Urine Nitrite Negative (NEGATIVE) Urine Bilirubin Negative (NEGATIVE) Urine Urobilinogen 0.2 (0.2-1.0) mg/dL Ur Leukocyte Esterase Negative (NEGATIVE) Meds: Medications Generic Name Dose Route Start Last Admin Trade Name Freq PRN Reason Stop Dose Admin Sodium Chloride 1,000 mls @ 500 mls/hr 04/24/17 20:25 04/24/17 20:30 Normal Saline IV 04/24/17 22:24 500 mls/hr .BOLUS ONE Administration Discontinued Medications Generic Name Dose Route Start Last Admin Trade Name Freq PRN Reason Stop Dose Admin Sodium Chloride 1,000 mls @ 999 mls/hr 04/24/17 19:00 04/24/17 19:14 Normal Saline IV 04/24/17 20:00 999 mls/hr .BOLUS ONE Administration Ondansetron HCl 4 mg 04/24/17 19:00 04/24/17 19:14 Zofran IV 04/24/17 19:01 4 mg ONETIME ONE Administration Departure - Departure Time of Disposition: 22:15 Disposition: Home, Self-Care 01 Condition: Fair Clinical Impression: Gastroenteritis - Discharge Information Instructions: Viral Gastroenteritis, Adult, [id number] Forms: ED Department Discharge Care Plan Goals: The patient was advised of the examination and lab results during the visit. The patient was given IV fluids and IV Zofran while in the ED. The patient was discharged with Zofran ODT (4 mg) #2 to take 1 by mouth every 6 hours and a script for Zofran (4 mg) #10 to take 1 by mouth every 6 hours as needed for nausea. The patient was encouraged to stick to a BRAT diet (bananas, rice, applesauce and toast) over the next 48 hour with small frequent sips of fluid. If the patient has any additional symptoms or concerns, the patient should follow-up with her primary care facility or return to the ED. - My Orders Last 24 Hours: My Active Orders 04/24/17 19:00 UA W/MICROSCOPIC [URIN] Stat 04/24/17 20:25 Sodium Chloride 0.9% [Normal Saline] 1,000 ml IV .BOLUS - Assessment/Plan Last 24 Hours: My Active Orders 04/24/17 19:00 UA W/MICROSCOPIC [URIN] Stat 04/24/17 20:25 Sodium Chloride 0.9% [Normal Saline] 1,000 ml IV .BOLUS
[2017-04-24] MEDS ORDERED: Ondansetron 4 MG Tab.DIS ONE (22:17)
== END 2017-04-24 22:21 | disposition home or self-care (01) ==
LOC: DL.ED 17:41
DX: K52.9 Noninfective gastroenteritis and colitis, unspecified (principal); F17.210 Nicotine dependence, cigarettes, uncomplicated; I25.10 Atherosclerotic heart disease of native coronary artery without angina pectoris; E78.00 Pure hypercholesterolemia, unspecified; I12.9 Hypertensive chronic kidney disease with stage 1 through stage 4 chronic kidney disease, or unspecified chronic kidney disease; E11.22 Type 2 diabetes mellitus with diabetic chronic kidney disease; N18.9 Chronic kidney disease, unspecified; E03.9 Hypothyroidism, unspecified; Z95.1 Presence of aortocoronary bypass graft; Z79.4 Long term (current) use of insulin; Z79.82 Long term (current) use of aspirin; Z79.899 Other long term (current) drug therapy; Z88.5 Allergy status to narcotic agent; Z88.6 Allergy status to analgesic agent; Z88.8 Allergy status to other drugs, medicaments and biological substances
CPT/HCPCS: 36415; 80053; 81001; 82962; 85025; 96361; 96374; 99284; J2405; J7030; A9270-GY

== ENCOUNTER 2017-10-25 08:21 | Day surgery (SDC) | payer MEDICARE, OTHER ==
[2017-10-25] MEDS ORDERED: Sodium Chloride 0.9% 10 ML Syringe IV ONE (08:22)
[2017-10-25] MEDS ORDERED: Midazolam 1 MG/ML 2 ML SDV IV ONE (08:22)
[2017-10-25] MEDS ORDERED: EPINEPHrine 1 MG/ML SDV ONE (09:55)
[2017-10-25] MEDS ORDERED: Lidocaine 1% 30 ML SDV ONE (09:56)
[2017-10-25] MEDS ORDERED: Balanced Salt Solution Ophth Irrig 500 ML Bottle IOCULAR ONE (09:56)
[2017-10-25] MEDS ORDERED: Moxifloxacin 0.5% Ophth Soln 3 ML Bottle EYERT ONE ×2 (09:57→10:00)
[2017-10-25] MEDS ORDERED: Lidocaine 4% 5 ML Amp EYERT ONE ×2 (09:57→10:00)
[2017-10-25] MEDS ORDERED: Povidone-Iodine 5% Sterile Ophth Soln 30 ML Bottle EYERT ONE (09:58)
[2017-10-25] MEDS ORDERED: prednisoLONE Acetate 1% Ophth Susp 5 ML Bottle EYERT ONE (09:58)
[2017-10-25] MEDS ORDERED: Chondroitin Sulfate/Hyaluronate Sodium Ophth Inj 0.5 ML Syringe IOCULAR ONE (09:59)
[2017-10-25] MEDS ORDERED: Cataract Ophth Solution EYERT ONE (10:00)
[2017-10-25] MEDS ORDERED: Sodium Chloride 0.9% 10 ML Syringe FLUSH PRN (10:00)
--- NOTE | 2017-10-25 10:14 | PCM.OPNOTE ---
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 The patient was given topical Lidocaine 4% drops in the right eye. The patient was then prepped and draped in the sterile [facility] fashion. A wire lid speculum was placed in the right eye. A clear cornea temporal approach was used. A 1.1 mm chenega blade was used to make a paracentesis site around 11:00. Preservative-free Lidocaine 1% was injected intracamerally. Viscoelastic was placed in the anterior chamber. A 2.5 mm keratome blade was used to make a clear corneal incision around 9:00. A cystotome needle and Utrata forceps were used to perform continuous curvilinear capsulorhexis. Balanced Salt Solution was used to perform hydrodissection and hydrodelineation. The lens nucleus was removed using the divide and conquer phacoemulsification technique. Cumulative dissipated energy was 4.70. Remaining cortex was removed using irrigation- aspiration. Viscoelastic was placed in the capsular bag. PCBOO 23.5 diopter lens was then placed in the capsular bag. Remaining viscoelastic was removed using irrigation-aspiration. The lens was well centered in the capsular bag. The paracentesis and corneal incision were found to be water-tight. The patient was given topical Prednisolone and Vigamox drops. The speculum was removed and a shield was placed over the right eye. The patient was taken to recovery in stable condition. I certify that I was present for and performed the entire operative procedure. Alejo Noguera M.D.
[2017-10-25] MEDS ORDERED: Acetaminophen 325 MG Tab PO ONE (10:31)
[2017-10-25 11:33] VITALS: BP 138/61
== END 2017-10-25 11:25 | disposition home or self-care (01) ==
LOC: DL.SDS 08:21
PROVIDERS: ATTEND Ophthalmology
DX: E11.36 Type 2 diabetes mellitus with diabetic cataract (principal); H25.811 Combined forms of age-related cataract, right eye; H52.03 Hypermetropia, bilateral; H52.4 Presbyopia; H52.223 Regular astigmatism, bilateral; I12.9 Hypertensive chronic kidney disease with stage 1 through stage 4 chronic kidney disease, or unspecified chronic kidney disease; E11.22 Type 2 diabetes mellitus with diabetic chronic kidney disease; N18.3 Chronic kidney disease, stage 3 (moderate); E03.9 Hypothyroidism, unspecified; E11.40 Type 2 diabetes mellitus with diabetic neuropathy, unspecified; E55.9 Vitamin D deficiency, unspecified; E78.5 Hyperlipidemia, unspecified; K59.09 Other constipation; K21.9 Gastro-esophageal reflux disease without esophagitis; F41.9 Anxiety disorder, unspecified; F32.9 Major depressive disorder, single episode, unspecified; F17.210 Nicotine dependence, cigarettes, uncomplicated; Z79.82 Long term (current) use of aspirin; Z79.84 Long term (current) use of oral hypoglycemic drugs; Z79.899 Other long term (current) drug therapy; Z88.5 Allergy status to narcotic agent; Z88.8 Allergy status to other drugs, medicaments and biological substances
CPT/HCPCS: 00142; 66984; A9270; J0171; J2250; J7050; J2001; V2632

== ENCOUNTER 2018-04-06 23:38 | Emergency (ER) | payer MEDICARE, OTHER ==
[2018-04-06 23:58] VITALS: BP 159/75
[2018-04-07] MEDS ORDERED: Sodium Chloride 0.9% 10 ML Syringe FLUSH PRN (00:15)
[2018-04-07] MEDS ORDERED: ClonazePAM 0.5 MG Tab PO ONE (00:16)
[2018-04-07] MEDS ORDERED: Ondansetron 4 MG/2 ML SDV IV ONE (00:31)
[2018-04-07 00:39] LABS: ANION GAP 15.7; CHLORIDE,CL 101 mmol/L (101-111); SODIUM,NA 137 mmol/L (135-145)
--- NOTE | 2018-04-07 01:03 | EDM.PDOC ---
ED HPI GENERAL MEDICAL PROBLEM - General Chief Complaint: Gastrointestinal Problem Stated Complaint: CANT KEEP ANYTHING DOWN [id number] Time Seen by Provider: 04/07/18 00:08 Source of Information: Reports: Patient, RN, RN Notes Reviewed History Limitations: Reports: No Limitations - History of Present Illness INITIAL COMMENTS - FREE TEXT/NARRATIVE: Pt to ER with c/o nausea. She states it comes and goes. Patient was seen on 03/23 and instructed to follow up for GI consult. Pt states she did call her primary and is waiting to hear back on referral for GI consult. Patient states her appetite has been decreased for the past few days, only able to eat crackers. She states she does not vomit, but dry heaves. She also admits to weakness. Patient states she is trying to drink fluids. C/o pain in the umbilical area, RUQ, RLQ. Denies fever, chills, diarrhea, vomiting, chest pains , or SOB. Patient states she still has her gallbladder. Also states she is diabetic and her blood sugars have been running a little low. Patient c/o anxiety at this time. Onset: Today, Sudden Duration: Intermittent Location: Reports: Abdomen - Related Data Allergies Allergy/AdvReac Type Severity Reaction Status Date / Time amitriptyline [From Elavil] Allergy Cannot Verified 04/06/18 23:58 Remember atenolol Allergy Cannot Verified 04/06/18 23:58 Remember codeine Allergy Nausea and Verified 04/06/18 23:58 Vomiting cyclobenzaprine Allergy Cannot Verified 04/06/18 23:58 [From Flexeril] Remember estradiol [From Estraderm] Allergy Cannot Verified 04/06/18 23:58 Remember ibuprofen [From Motrin] Allergy Stomach Verified 04/06/18 23:58 Upset NSAIDS (Non-Steroidal Allergy Cannot Verified 04/06/18 23:58 Anti-Inflamma Remember propoxyphene HCl Allergy Dizziness Verified 04/06/18 23:58 [From Darvon] trazodone Allergy Cannot Verified 04/06/18 23:58 Remember Home Meds: Home Meds Metoprolol Tartrate 25 mg PO DAILY 02/02/13 [History] Simvastatin [Zocor] 40 mg PO BEDTIME 02/02/13 [History] Pregabalin [Lyrica] 75 mg PO BID 11/26/13 [History] Aspirin [Ecotrin] 325 mg PO DAILY 04/16/16 [History] Levothyroxine Sodium [Synthroid] 100 mcg PO DAILY 04/16/16 [History] Magnesium Oxide 400 mg PO DAILY 04/16/16 [History] clonazePAM [Clonazepam] 1 mg PO BID PRN 04/16/16 [History] Multivitamin with Minerals [Multiple Vitamin] 1 tab PO DAILY 03/11/17 [History] Ondansetron 4 mg PO Q8H PRN 03/11/17 [History] Ergocalciferol (Vitamin D2) [Vitamin D2] 1 tab PO .MONTHLY 12/28/17 [History] Fenofibrate Nanocrystallized [Tricor] 135 mg PO DAILY 12/28/17 [History] Insulin Detemir [Levemir Flextouch] 20 units SQ BEDTIME 12/28/17 [History] Cholecalciferol (Vitamin D3) [Vitamin D3] 1,000 units PO DAILY 03/23/18 [History ] Losartan [Cozaar] 50 mg PO DAILY 03/23/18 [History] Pioglitazone [Actos] 15 mg PO DAILY 03/23/18 [History] Past Medical History HEENT History: Reports: Allergic Rhinitis, Cataract, Glaucoma, Hard of Hearing, Other (See Below) Other HEENT History: broken ear drum right ear, WEARS CORRECTIVE LENS Cardiovascular History: Reports: Bypass, CAD, High Cholesterol, Hypertension, [place] , Other (See Below) Other Cardiovascular History: abnormal heart rythm Respiratory History: Reports: Bronchitis, Recurrent Gastrointestinal History: Reports: Chronic Constipation Other Gastrointestinal History: peptic ulcer disease Genitourinary History: Reports: Chronic Renal Insuffiency, Other (See Below) Other Genitourinary History: sees a kidney MD at [facility] and was told her kidneys are "ok". Hx of microalbuminuria CARGO TRIMMER History: Reports: , Spontaneous , Other (See Below) Other CARGO TRIMMER History: c section X1. breast lumpectomy Musculoskeletal History: Reports: Arthritis, Back Pain, Chronic, Other (See Below) Other Musculoskeletal History: Arthritis in fingers. Left hip bursitis. General weakness. muscle tear of left external oblique. Joint pain left thigh and pelvic region. mild central and bilateral foramnal L5-S1 spinal stenosis with ligamentum flavum hypertrophy. lumbar spondylosis Neurological History: Reports: Headaches, Chronic, Vertigo Psychiatric History: Reports: Anxiety, Depression Endocrine/Metabolic History: Reports: Diabetes, Type II, Hypothyroidism, Obesity /BMI 30+ Other Endocrine/Metabolic History: Takes insulin in am and bedtime. Unsure of insulin's name. Hematologic History: Reports: Anemia, Other (See Below) Other Hematologic History: Hx of hypernatremia Immunologic History: Reports: None Oncologic (Cancer) History: Reports: None Dermatologic History: Reports: None - Infectious Disease History Infectious Disease History: Reports: Chicken Pox, Measles, Shingles - Past Surgical History HEENT Surgical History: Reports: Cataract Surgery, Tonsillectomy Other HEENT Surgeries/Procedures: right eye Cardiovascular Surgical History: Reports: Coronary Artery Bypass, Coronary Artery Stent Other Cardiovascular Surgeries/Procedures: s/p heart surgery Respiratory Surgical History: Reports: None GI Surgical History: Reports: None, Appendectomy, Cholecystectomy, Colonoscopy Female Surgical History: Reports: Breast Biopsy, Section Other Musculoskeletal Surgeries/Procedures:: s/p lumbar spine surgery Social & Family History - Family History Family Medical History: Noncontributory - Tobacco Use Smoking Status *Q: Heavy Tobacco Smoker Years of Tobacco use: 50 Packs/Tins Daily: 1 - Caffeine Use Caffeine Use: Reports: Coffee Caffeine Use Comment: 8 oz daily - Recreational Drug Use Recreational Drug Use: No - Living Situation & Occupation Living situation: Reports: Single ED ROS GENERAL - Review of Systems Review Of Systems: ROS reveals no pertinent complaints other than HPI. ED EXAM, GI/ABD - Physical Exam Exam: See Below Exam Limited By: No Limitations General Appearance: Alert, WD/WN, No Apparent Distress Eyes: Bilateral: Normal Appearance, EOMI Ears: Normal External Exam, Hearing Grossly Normal Nose: Normal Inspection Throat/Mouth: Normal Inspection, Normal Voice, No Airway Compromise, Other (dry mucous membranes) Head: Atraumatic, Normocephalic Neck: Normal Inspection, Supple, Non-Tender, Full Range of Motion Respiratory/Chest: No Respiratory Distress, Lungs Clear, Normal Breath Sounds, No Accessory Muscle Use, Chest Non-Tender Cardiovascular: Normal Peripheral Pulses, Regular Rate, Rhythm, No Edema, No Gallop, No JVD, No Murmur, No Rub GI/Abdominal Exam: Normal Bowel Sounds, Soft, Tender (RUQ, RLQ) (Female) Exam: Deferred Rectal (Female) Exam: Deferred Back Exam: Normal Inspection, Decreased Range of Motion Extremities: Normal Inspection, Non-Tender, No Pedal Edema, Normal Capillary Refill, Limited Range of Motion Neurological: Alert, Oriented, CN II-XII Intact, Normal Cognition Psychiatric: Anxious Skin Exam: Warm, Dry, Intact, Normal Color, No Rash Lymphatic: No Adenopathy Course - Vital Signs Last Recorded V/S: Last Vital Signs Temp 97.4 F 04/06/18 23:51 Pulse 81 04/06/18 23:51 Resp 18 04/06/18 23:51 BP 159/75 H 04/06/18 23:51 Pulse Ox 97 04/06/18 23:51 - Orders/Labs/Meds Orders: Active Orders 24 hr Category Date Time Status Peripheral IV Care [RC] . DIRECTED Care 04/07/18 00:15 Active CULTURE URINE [RM] Stat Lab 04/07/18 00:28 Received Sodium Chloride 0.9% [Saline Flush] Med 04/07/18 00:15 Active 10 ml FLUSH ASDIRECTED PRN Peripheral IV Insertion Adult [OM.PC] Stat Oth 04/07/18 00:15 Ordered Medication Orders Sodium Chloride (Saline Flush) 10 ml FLUSH ASDIRECTED PRN PRN Reason: Keep Vein Open Last Admin: 04/07/18 00:27 Dose: 10 ml Labs: Laboratory Tests 04/07/18 04/07/18 04/07/18 Range/Units 00:00 00:00 00:28 WBC 10.0 (5.0-10.0) 10^3/uL RBC 4.67 (4.2-5.4) 10^6/uL Hgb 14.1 (12.0-16.0) g/dL Hct 43.4 (37.0-47.0) % MCV 92.9 (80-100) fL MCH 30.2 (27.0-34.0) pg MCHC 32.5 L (33.0-35.0) g/dL Plt Count 338 (150-450) 10^3/uL Neut % (Auto) 70.1 (42.2-75.2) % Lymph % (Auto) 22.3 (20.5-50.1) % Park % (Auto) 5.3 (2-8) % Eos % (Auto) 2.0 (1.0-3.0) % Baso % (Auto) 0.3 (0.0-1.0) % Sodium 137 (135-145) mmol/L Potassium 4.7 (3.6-5.0) mmol/L Chloride 101 (101-111) mmol/L Carbon Dioxide 25.0 (21.0-31.0) mmol/L Anion Gap 15.7 BUN 25 H (7-18) mg/dL Creatinine 1.8 H (0.6-1.3) mg/dL Est Cr Clr Drug Dosing 22.34 mL/min Estimated GFR (MDRD) 28 BUN/Creatinine Ratio 13.88 Glucose 106 H (74-105) mg/dL Calcium 8.8 (8.4-10.2) mg/dl Total Bilirubin 0.9 (0.2-1.0) mg/dL AST 28 (10-42) IU/L ALT 20 (10-60) IU/L Alkaline Phosphatase 52 (42-121) IU/L Troponin I < 0.02 (0.00-0.02) ng/ml Total Protein 7.4 (6.7-8.2) g/dl Albumin 3.7 (3.2-5.5) g/dl Globulin 3.7 Albumin/Globulin Ratio 1.00 Amylase 24 L (28-100) U/L Lipase 32 (22-51) U/L Urine Color Yellow (YELLOW) Urine Appearance Turbid (CLEAR) Urine pH 6.0 (5.0-9.0) Ur Specific [place] >= 1.030 (1.005-1.030) Urine Protein >=300 H (NEGATIVE) Urine Glucose (UA) Negative (NEGATIVE) Urine Ketones Negative (NEGATIVE) Urine Occult Blood Small H (NEGATIVE) Urine Nitrite Negative (NEGATIVE) Urine Bilirubin Negative (NEGATIVE) Urine Urobilinogen 1.0 (0.2-1.0) mg/dL Ur Leukocyte Esterase Negative (NEGATIVE) Urine RBC 0-5 /HPF Urine WBC 5-10 H (0-5/HPF) /HPF Ur Epithelial Cells Few /HPF Amorphous Sediment Few (0/HPF) /HPF Urine Bacteria Many H (0-FEW/HPF) /HPF Urine Mucus Few H /LPF Meds: Medications Generic Name Dose Route Start Last Admin Trade Name Freq PRN Reason Stop Dose Admin Sodium Chloride 10 ml 04/07/18 00:15 04/07/18 00:27 Saline Flush FLUSH 10 ml ASDIRECTED PRN Administration Keep Vein Open Discontinued Medications Generic Name Dose Route Start Last Admin Trade Name Freq PRN Reason Stop Dose Admin Clonazepam 0.5 mg 04/07/18 00:16 04/07/18 00:27 Klonopin PO 04/07/18 00:17 0.5 mg ONETIME ONE Administration Metoclopramide HCl 10 mg 04/07/18 02:49 04/07/18 02:51 Reglan IVPUSH 04/07/18 02:50 10 mg ONETIME ONE Administration Ondansetron HCl 4 mg 04/07/18 00:31 04/07/18 00:38 Zofran IV 04/07/18 00:32 4 mg ONETIME ONE Administration Sucralfate 1 gm 04/07/18 03:07 Carafate PO 04/07/18 03:08 ONETIME ONE - Radiology Interpretation Free Text/Narrative:: CT Abdomen/Pelvis without contrast (due to elevated creatinine): FINDINGS: Lower thorax: Status post open heart surgery ABDOMEN: Liver: Normal. No mass. Gallbladder and bile ducts: Status post cholecystectomy. Pancreas: Normal. No ductal dilation. Spleen: Normal. No splenomegaly. Adrenals: Normal. No mass. Kidneys and ureters: Normal. No hydronephrosis. Stomach and bowel: Normal. No obstruction. No mucosal thickening. Appendix: Status post appendectomy. PELVIS: Bladder: Unremarkable as visualized. Reproductive: Unremarkable as visualized. ABDOMEN and PELVIS: Intraperitoneal space: Normal. No free air. No significant fluid collection. Bones/joints: No acute fracture. No dislocation. Soft tissues: Unremarkable. Vasculature: 3.1 cm infrarenal abdominal aortic aneurysm without evidence for leakage Lymph nodes: Normal. No enlarged lymph nodes. IMPRESSION: 1. 3.1 cm infrarenal abdominal aortic aneurysm. No evidence for leakage 2. Otherwise unremarkable CT scan of the abdomen and pelvis Thank you for allowing us to participate in the care of your patient. Dictated and Authenticated by: Michael Christianson MD 04/07/2018 3:01 AM Central Time ([place] & [place]) See rad report Departure - Departure Time of Disposition: 03:05 Disposition: Home, Self-Care 01 Condition: Fair Clinical Impression: Nausea - Discharge Information *PRESCRIPTION DRUG MONITORING PROGRAM REVIEWED*: No *COPY OF PRESCRIPTION DRUG MONITORING REPORT IN PATIENT BEN: No Instructions: Nausea, Adult, [id number] Forms: ED Department Discharge Additional Instructions: RX: Carafate Follow up with your primary care facility for GI consult Avoid coffee, tea, caffeinated beverages, chocolate, spicy foods. - My Orders Last 24 Hours: My Active Orders 04/07/18 00:15 Peripheral IV Care [RC] . DIRECTED Sodium Chloride 0.9% [Saline Flush] 10 ml FLUSH ASDIRECTED PRN Peripheral IV Insertion Adult [OM.PC] Stat 04/07/18 00:28 CULTURE URINE [RM] Stat - Assessment/Plan Last 24 Hours: My Active Orders 04/07/18 00:15 Peripheral IV Care [RC] . DIRECTED Sodium Chloride 0.9% [Saline Flush] 10 ml FLUSH ASDIRECTED PRN Peripheral IV Insertion Adult [OM.PC] Stat 04/07/18 00:28 CULTURE URINE [RM] Stat
[2018-04-07] MEDS ORDERED: Metoclopramide 10 MG/2 ML SDV IVPUSH ONE (02:49)
[2018-04-07] MEDS ORDERED: Sucralfate 1 GM Tab PO ONE (03:07)
== END 2018-04-07 03:27 | disposition home or self-care (01) ==
LOC: DL.ED 23:38
DX: R11.0 Nausea (principal); I10 Essential (primary) hypertension; I25.2 Old myocardial infarction; F17.210 Nicotine dependence, cigarettes, uncomplicated; Z88.5 Allergy status to narcotic agent; Z88.8 Allergy status to other drugs, medicaments and biological substances; Z79.899 Other long term (current) drug therapy
CPT/HCPCS: 36415; 74176; 80053; 81001; 82150; 83690; 84484; 85025; 87086; 96374; 96375; 99284; A9270; J2405; J2765

== ENCOUNTER 2019-05-15 21:51 | Inpatient (IN) | payer MEDICARE, OTHER ==
[2019-05-15] MEDS ORDERED: Sodium Chloride 0.9% 1,000 ML IV ONE (22:14)
[2019-05-15] MEDS ORDERED: Acetaminophen 325 MG Tab PO ONE (22:18)
[2019-05-15 22:58] LABS: ANION GAP 13.7 mEq/L (7-13); CHLORIDE,CL 100 mmol/L (98-107); SODIUM,NA 138 mmol/L (136-145)
[2019-05-15] MEDS ORDERED: cefTRIAXone 1 GM in Sodium Chloride 0.9% 50 ML IV ONE (23:21)
[2019-05-15] MEDS ORDERED: Azithromycin 500 MG in Sodium Chloride 0.9% 250 ML IV ONE (23:21)
--- NOTE | 2019-05-15 23:28 | EDM.PDOC ---
ED HPI GENERAL MEDICAL PROBLEM - General Chief Complaint: Respiratory Problem Stated Complaint: WEEK, SHAR IN HTE FACE Time Seen by Provider: 05/15/19 22:00 Source of Information: Reports: Patient History Limitations: Reports: No Limitations - History of Present Illness INITIAL COMMENTS - FREE TEXT/NARRATIVE: ED with initial complaint of fever, weakness and cough onset 11o00 today. No known exposure, has been to clinic for routine appointments weekly x 2 past weeks. Lives at home with nephew. Sneezing and runny nose today. No appetite for supper but did eat sandwich for lunch. Taking fluids. Has been on phenergan and omeprzole for stomach. Last took Phenergan this am. Bilateral Upper Leg Pain Score (Numeric/FACES): 7 - Related Data Allergies Allergy/AdvReac Type Severity Reaction Status Date / Time amitriptyline [From Elavil] Allergy Cannot Verified 05/16/19 01:35 Remember atenolol Allergy Cannot Verified 05/16/19 01:35 Remember codeine Allergy Nausea and Verified 05/16/19 01:35 Vomiting cyclobenzaprine Allergy Cannot Verified 05/16/19 01:35 [From Flexeril] Remember estradiol [From Estraderm] Allergy Cannot Verified 05/16/19 01:35 Remember ibuprofen [From Motrin] Allergy Stomach Verified 05/16/19 01:35 Upset NSAIDS (Non-Steroidal Allergy Cannot Verified 05/16/19 01:35 Anti-Inflamma Remember propoxyphene HCl Allergy Dizziness Verified 05/16/19 01:35 [From Darvon] trazodone Allergy Cannot Verified 05/16/19 01:35 Remember Home Meds: Home Meds Metoprolol Tartrate 50 mg PO DAILY 02/02/13 [History] Simvastatin [Zocor] 40 mg PO BEDTIME 02/02/13 [History] Pregabalin [Lyrica] 75 mg PO BID 11/26/13 [History] Aspirin [Ecotrin] 325 mg PO DAILY 04/16/16 [History] Levothyroxine Sodium [Synthroid] 0.125 mcg PO DAILY 04/16/16 [History] Magnesium Oxide 400 mg PO DAILY 04/16/16 [History] clonazePAM [Clonazepam] 1 mg PO BID PRN 04/16/16 [History] Multivitamin with Minerals [Multiple Vitamin] 1 tab PO DAILY 03/11/17 [History] Ondansetron 4 mg PO Q8H PRN 03/11/17 [History] Ergocalciferol (Vitamin D2) [Vitamin D2] 1 tab PO .MONTHLY 12/28/17 [History] Fenofibrate Nanocrystallized [Tricor] 135 mg PO DAILY 12/28/17 [History] Insulin Detemir [Levemir Flextouch] 20 units SQ BEDTIME 12/28/17 [History] Cholecalciferol (Vitamin D3) [Vitamin D3] 2,000 units PO DAILY 03/23/18 [History ] Losartan [Cozaar] 50 mg PO DAILY 03/23/18 [History] Pioglitazone [Actos] 15 mg PO DAILY 03/23/18 [History] Ferrous Sulfate 325 mg PO DAILY 05/16/19 [History] Isosorbide Mononitrate 20 mg PO DAILY 05/16/19 [History] Omeprazole 20 mg PO DAILY 05/16/19 [History] Promethazine [Phenergan] 25 mg PO Q8H PRN 05/16/19 [History] Sertraline HCl 25 mg PO DAILY 05/16/19 [History] predniSONE [Prednisone] 40 mg PO DAILY 05/16/19 [History] Past Medical History HEENT History: Reports: Allergic Rhinitis, Cataract, Glaucoma, Hard of Hearing, Other (See Below) Other HEENT History: broken ear drum right ear, WEARS CORRECTIVE LENS Cardiovascular History: Reports: Bypass, CAD, High Cholesterol, Hypertension, [place] , Other (See Below) Other Cardiovascular History: abnormal heart rythm Respiratory History: Reports: Bronchitis, Recurrent Gastrointestinal History: Reports: Chronic Constipation Other Gastrointestinal History: peptic ulcer disease Genitourinary History: Reports: Chronic Renal Insuffiency, Other (See Below) Other Genitourinary History: sees a kidney MD at [facility] and was told her kidneys are "ok". 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 breast lumpectomy Musculoskeletal History: Reports: Arthritis, Back Pain, Chronic, Other (See Below) Other Musculoskeletal History: Arthritis in fingers. Left hip bursitis. General weakness. muscle tear of left external oblique. Joint pain left thigh and pelvic region. mild central and bilateral foramnal L5-S1 spinal stenosis with ligamentum flavum hypertrophy. lumbar spondylosis Neurological History: Reports: Headaches, Chronic, Vertigo Psychiatric History: Reports: Anxiety, Depression Endocrine/Metabolic History: Reports: Diabetes, Type II, Hypothyroidism, Obesity /BMI 30+ Other Endocrine/Metabolic History: Takes insulin in am and bedtime. Unsure of insulin's name. Hematologic History: Reports: Anemia, Other (See Below) Other Hematologic History: Hx of hypernatremia Immunologic History: Reports: None Oncologic (Cancer) History: Reports: None Dermatologic History: Reports: None - Infectious Disease History Infectious Disease History: Reports: Chicken Pox, Measles, Shingles - Past Surgical History HEENT Surgical History: Reports: Cataract Surgery, Tonsillectomy Other HEENT Surgeries/Procedures: right eye Cardiovascular Surgical History: Reports: Coronary Artery Bypass, Coronary Artery Stent Other Cardiovascular Surgeries/Procedures: s/p heart surgery Respiratory Surgical History: Reports: None GI Surgical History: Reports: None, Appendectomy, Cholecystectomy, Colonoscopy Female Surgical History: Reports: Breast Biopsy, Section Other Musculoskeletal Surgeries/Procedures:: s/p lumbar spine surgery Social & Family History - Family History Family Medical History: Noncontributory - Tobacco Use Smoking Status *Q: Current Every Day Smoker Years of Tobacco use: 57 Packs/Tins Daily: 0.5 Second Hand Smoke Exposure: Yes - Caffeine Use Caffeine Use: Reports: Coffee Caffeine Use Comment: 8 oz daily - Recreational Drug Use Recreational Drug Use: No - Living Situation & Occupation Living situation: Reports: Single ED ROS GENERAL - Review of Systems Review Of Systems: See Below Constitutional: Reports: Fever, Chills, Malaise, Weakness, Decreased Appetite HEENT: Reports: Rhinitis Respiratory: Reports: Cough. Denies: Shortness of Breath Cardiovascular: Denies: Chest Pain, Edema, Lightheadedness Endocrine: Reports: No Symptoms GI/Abdominal: Reports: Decreased Appetite Musculoskeletal: Reports: No Symptoms, Other (legs ached this am better now) Skin: Reports: No Symptoms Neurological: Reports: No Symptoms ED EXAM, GENERAL - Physical Exam Exam: See Below Exam Limited By: No Limitations General Appearance: Alert, Obese Eye Exam: Bilateral Eye: EOMI Ears: Normal TMs, Hearing Loss Nose: Normal Inspection Throat/Mouth: Normal Inspection Head: Atraumatic, Normocephalic Neck: Normal Inspection Respiratory/Chest: No Respiratory Distress, Decreased Breath Sounds, Crackles ( fine left base). No: Rhonchi, Wheezing Cardiovascular: Normal Peripheral Pulses, Regular Rate, Rhythm GI/Abdominal: Normal Bowel Sounds, Soft, Non-Tender (Female) Exam: Other (groin red, poor rj care) Extremities: Normal Inspection, Normal Range of Motion Neurological: Alert, Oriented, Normal Cognition, Other (generalized weakness, tx from wheelchair with assist) Psychiatric: Normal Affect Skin Exam: Warm, Dry, Intact Course - Vital Signs Last Recorded V/S: Last Vital Signs Temp 98.6 F 05/15/19 23:56 Pulse 82 05/15/19 23:56 Resp 20 05/15/19 23:56 BP 106/52 L 05/15/19 23:56 Pulse Ox 96 05/15/19 23:56 - Orders/Labs/Meds Orders: Active Orders 24 hr Category Date Time Status CORONAVIRUS COVID-19 PCR PHL [MREF] Stat Lab 05/15/19 22:50 Received CULTURE BLOOD [BC] Stat Lab 05/15/19 22:24 Received CULTURE BLOOD [BC] Stat Lab 05/15/19 22:53 Received CULTURE URINE [RM] Urgent Lab 05/15/19 23:03 Received Blood Culture x2 Reflex Set [OM.PC] Stat Oth 05/15/19 22:14 Ordered Isolation [COMM] Routine Oth 05/15/19 22:09 Active Medication Orders Aspirin (Ecotrin) 325 mg PO DAILY [facility] Cholecalciferol (Vitamin D3) 25 mcg PO DAILY [facility] Clonazepam (Klonopin) 1 mg PO BID PRN PRN Reason: Anxiety Docusate Sodium (Colace) 100 mg PO BID PRN PRN Reason: Constipation Heparin Sodium (Porcine) (Heparin Sodium) 5,000 units SUBCUT Q8HR [facility] Ceftriaxone Sodium 1 gm/ (Sodium Chloride) 50 mls @ 100 mls/hr IV Q24H [facility] Azithromycin 500 mg/ Sodium (Chloride) 250 mls @ 250 mls/hr IV Q24H [facility] Sodium Chloride (Normal Saline) 1,000 mls @ 100 mls/hr IV ASDIRECTED [facility] Insulin Glargine (Lantus) 20 unit SUBCUT BEDTIME [facility] Insulin Human Lispro (Humalog) 0 unit SUBCUT ACBED [facility]; Protocol Levothyroxine Sodium (Synthroid) 100 mcg PO DAILY [facility] Losartan Potassium (Cozaar) 50 mg PO DAILY [facility] Magnesium Oxide (Magnesium Oxide) 250 mg PO DAILY [facility] Metoprolol Succinate (Toprol Xl) 25 mg PO DAILY [facility] Multivitamins/Minerals (Vitamins And Minerals) 1 tab PO DAILY [facility] Non-Formulary Medication (Fenofibrate Nanocrystallized [Tricor]) 135 mg PO DAILY [facility] Ondansetron HCl (Zofran Odt) 4 mg PO Q6H PRN PRN Reason: nausea, able to take PO Oxycodone HCl (Oxycodone) 5 mg PO Q4H PRN PRN Reason: Pain (moderate 4-6) Pioglitazone HCl (Actos) 15 mg PO DAILY [facility] Pregabalin (Lyrica) 75 mg PO BID [facility] Simvastatin (Zocor) 40 mg PO BEDTIME [facility] Sodium Chloride (Saline Flush) 10 ml FLUSH ASDIRECTED PRN PRN Reason: Keep Vein Open Zolpidem Tartrate (Ambien) 5 mg PO BEDTIME PRN PRN Reason: Sleep Labs: Laboratory Tests 05/15/19 05/15/19 05/15/19 Range/Units 22:24 22:24 22:24 WBC 21.0 H (5.0-10.0) 10^3/uL RBC 4.51 (4.2-5.4) 10^6/uL Hgb 13.9 (12.0-16.0) g/dL Hct 42.8 (37.0-47.0) % MCV 94.9 (80-100) fL MCH 30.8 (27.0-34.0) pg MCHC 32.5 L (33.0-35.0) g/dL Plt Count 235 D (150-450) 10^3/uL Lymph % (Auto) 6.5 L (20.5-50.1) % [place] % (Auto) 2.1 (2-8) % Eos % (Auto) 0.4 L (1.0-3.0) % Add Manual Diff Yes Neutrophils % (Manual) 84 H (42-75) % Band Neutrophils % 5 % Lymphocytes % (Manual) 7 L (20-50) % Monocytes % (Manual) 3 (2-8) % Eosinophils % (Manual) 1 (1-3) % PT (9.0-12.0) SEC INR (0.9-1.2) Sodium 138 (136-145) mmol/L Potassium 4.7 (3.5-5.1) mmol/L Chloride 100 (98-107) mmol/L Carbon Dioxide 29 (21-32) mmol/L Anion Gap 13.7 H (7-13) mEq/L BUN 29 H (7-18) mg/dL Creatinine 2.68 H (0.55-1.02) mg/dL Est Cr Clr Drug Dosing TNP Estimated GFR (MDRD) 17 BUN/Creatinine Ratio 10.8 (No establ ref range) Glucose 151 H (74-99) mg/dL Lactic Acid 1.8 (0.4-2.0) mmol/L Calcium 8.5 (8.5-10.1) mg/dL Total Bilirubin 0.9 (0.2-1.0) mg/dL AST 21 (15-37) U/L ALT 23 (14-59) U/L Alkaline Phosphatase 58 (46-116) U/L Troponin I < 0.017 (0.000-0.056) ng/mL B-Natriuretic Peptide 228 H (0-100) pg/ml Total Protein 6.8 (6.4-8.2) g/dL Albumin 3.3 L (3.4-5.0) g/dL Globulin 3.5 Albumin/Globulin Ratio 0.94 Urine Color (YELLOW) Urine Appearance (CLEAR) Urine pH (5.0-9.0) Ur Specific [place] (1.005-1.030) Urine Protein (NEGATIVE) Urine Glucose (UA) (NEGATIVE) Urine Ketones (NEGATIVE) Urine Occult Blood (NEGATIVE) Urine Nitrite (NEGATIVE) Urine Bilirubin (NEGATIVE) Urine Urobilinogen (0.2-1.0) mg/dL Ur Leukocyte Esterase (NEGATIVE) Urine RBC /HPF Urine WBC (0-5/HPF) /HPF Ur Epithelial Cells (NOT SEEN) /HPF Amorphous Sediment (NOT SEEN) /HPF Urine Bacteria (0-FEW/HPF) /HPF Urine Mucus (NOT SEEN) /LPF 05/15/19 05/15/19 Range/Units 22:24 23:03 WBC (5.0-10.0) 10^3/uL RBC (4.2-5.4) 10^6/uL Hgb (12.0-16.0) g/dL Hct (37.0-47.0) % MCV (80-100) fL MCH (27.0-34.0) pg MCHC (33.0-35.0) g/dL Plt Count (150-450) 10^3/uL Lymph % (Auto) (20.5-50.1) % [place] % (Auto) (2-8) % Eos % (Auto) (1.0-3.0) % Add Manual Diff Neutrophils % (Manual) (42-75) % Band Neutrophils % % Lymphocytes % (Manual) (20-50) % Monocytes % (Manual) (2-8) % Eosinophils % (Manual) (1-3) % PT 11.0 (9.0-12.0) SEC INR 1.2 (0.9-1.2) Sodium (136-145) mmol/L Potassium (3.5-5.1) mmol/L Chloride (98-107) mmol/L Carbon Dioxide (21-32) mmol/L Anion Gap (7-13) mEq/L BUN (7-18) mg/dL Creatinine (0.55-1.02) mg/dL Est Cr Clr Drug Dosing Estimated GFR (MDRD) BUN/Creatinine Ratio (No establ ref range) Glucose (74-99) mg/dL Lactic Acid (0.4-2.0) mmol/L Calcium (8.5-10.1) mg/dL Total Bilirubin (0.2-1.0) mg/dL AST (15-37) U/L ALT (14-59) U/L Alkaline Phosphatase (46-116) U/L Troponin I (0.000-0.056) ng/mL B-Natriuretic Peptide (0-100) pg/ml Total Protein (6.4-8.2) g/dL Albumin (3.4-5.0) g/dL Globulin Albumin/Globulin Ratio Urine Color Yellow (YELLOW) Urine Appearance Cloudy (CLEAR) Urine pH 6.0 (5.0-9.0) Ur Specific [place] >= 1.030 (1.005-1.030) Urine Protein >=300 H (NEGATIVE) Urine Glucose (UA) Negative (NEGATIVE) Urine Ketones Negative (NEGATIVE) Urine Occult Blood Large H (NEGATIVE) Urine Nitrite Negative (NEGATIVE) Urine Bilirubin Negative (NEGATIVE) Urine Urobilinogen 0.2 (0.2-1.0) mg/dL Ur Leukocyte Esterase Large H (NEGATIVE) Urine RBC 5-10 H /HPF Urine WBC >100 H (0-5/HPF) /HPF Ur Epithelial Cells Few (NOT SEEN) /HPF Amorphous Sediment Few (NOT SEEN) /HPF Urine Bacteria Moderate H (0-FEW/HPF) /HPF Urine Mucus Rare (NOT SEEN) /LPF Meds: Medications Generic Name Dose Route Start Last Admin Trade Name Freq PRN Reason Stop Dose Admin Aspirin 325 mg 05/16/19 09:00 Ecotrin PO DAILY [facility] Cholecalciferol 25 mcg 05/16/19 09:00 Vitamin D3 PO DAILY [facility] Clonazepam 1 mg 05/15/19 23:45 Klonopin PO BID PRN Anxiety Docusate Sodium 100 mg 05/15/19 23:56 Colace PO BID PRN Constipation Heparin Sodium (Porcine) 5,000 units 05/16/19 06:00 Heparin Sodium SUBCUT Q8HR [facility] Ceftriaxone Sodium 1 gm/ 50 mls @ 100 mls/hr 05/16/19 23:45 Sodium Chloride IV Q24H [facility] Azithromycin 500 mg/ Sodium 250 mls @ 250 mls/hr 05/16/19 23:45 Chloride IV Q24H [facility] Sodium Chloride 1,000 mls @ 100 mls/hr 05/15/19 23:45 Normal Saline IV ASDIRECTED [facility] Insulin Glargine 20 unit 05/16/19 21:00 Lantus SUBCUT BEDTIME [facility] Insulin Human Lispro 0 unit 05/16/19 07:00 Humalog SUBCUT ACBED [facility] Protocol Levothyroxine Sodium 100 mcg 05/16/19 09:00 Synthroid PO DAILY [facility] Losartan Potassium 50 mg 05/16/19 09:00 Cozaar PO DAILY [facility] Magnesium Oxide 250 mg 05/16/19 09:00 Magnesium Oxide PO DAILY [facility] Metoprolol Succinate 25 mg 05/16/19 09:00 Toprol Xl PO DAILY [facility] Multivitamins/Minerals 1 tab 05/16/19 09:00 Vitamins And Minerals PO DAILY [facility] Non-Formulary Medication 135 mg 05/16/19 09:00 Fenofibrate Nanocrystallized [Tricor] PO DAILY [facility] Ondansetron HCl 4 mg 05/15/19 23:56 Zofran Odt PO Q6H PRN nausea, able to take PO Oxycodone HCl 5 mg 05/15/19 23:56 Oxycodone PO Q4H PRN Pain (moderate 4-6) Pioglitazone HCl 15 mg 05/16/19 09:00 Actos PO DAILY [facility] Pregabalin 75 mg 05/16/19 09:00 Lyrica PO BID [facility] Simvastatin 40 mg 05/16/19 21:00 Zocor PO BEDTIME [facility] Sodium Chloride 10 ml 05/15/19 23:56 Saline Flush FLUSH ASDIRECTED PRN Keep Vein Open Zolpidem Tartrate 5 mg 05/15/19 23:56 Ambien PO BEDTIME PRN Sleep Discontinued Medications Generic Name Dose Route Start Last Admin Trade Name Freq PRN Reason Stop Dose Admin Acetaminophen 650 mg 05/15/19 22:18 05/15/19 22:25 Tylenol PO 05/15/19 22:19 650 mg NOW ONE Administration Sodium Chloride 1,000 mls @ 200 mls/hr 05/15/19 22:14 05/15/19 22:25 Normal Saline IV 05/16/19 03:13 200 mls/hr .BOLUS ONE Administration Azithromycin 500 mg/ Sodium 250 mls @ 250 mls/hr 05/15/19 23:21 05/16/19 00: 17 Chloride IV 05/16/19 00:20 250 mls/hr ONETIME ONE Administration Ceftriaxone Sodium 1 gm/ 50 mls @ 100 mls/hr 05/15/19 23:21 05/15/19 23:37 Sodium Chloride IV 05/15/19 23:50 100 mls/hr ONETIME ONE Administration - Radiology Interpretation Free Text/Narrative:: CXR see report atelectasis, no pneumonia - Re-Assessments/Exams Free Text/Narrative Re-Assessment/Exam: Dr Moser accepting patient for admission. COV-ID 19 testing pending. Fever, cough hypoxia influenza negative Departure - Departure Time of Disposition: 23:31 Disposition: Admitted As Inpatient 66 Condition: Good Clinical Impression: Cough, History of hypothyroidism, IDDM (insulin dependent diabetes mellitus) Sepsis Qualifiers: Sepsis type: sepsis due to unspecified organism Sepsis acute organ dysfunction status: with acute organ dysfunction Severe sepsis acute organ dysfunction type : unspecified Severe sepsis shock status: unspecified Qualified Code(s): A41.9 - Sepsis, unspecified organism UTI (urinary tract infection) Qualifiers: Urinary tract infection type: site unspecified Hematuria presence: with hematuria Qualified Code(s): N39.0 - Urinary tract infection, site not specified - Discharge Information *PRESCRIPTION DRUG MONITORING PROGRAM REVIEWED*: No *COPY OF PRESCRIPTION DRUG MONITORING REPORT IN PATIENT BEN: No Sepsis Event Note - Evaluation Sepsis Screening Result: No Definite Risk - Focused Exam Vital Signs: Vital Signs Temp Pulse Resp BP Pulse Ox 05/15/19 23:27 100 F 05/15/19 21:58 101 F H 90 18 89/43 L 92 L Date Exam was Performed: 05/16/19 Time Exam was Performed: 02:47 - My Orders Last 24 Hours: My Active Orders 05/15/19 22:09 Isolation [COMM] Routine 05/15/19 22:14 Blood Culture x2 Reflex Set [OM.PC] Stat 05/15/19 22:24 CULTURE BLOOD [BC] Stat 05/15/19 22:50 CORONAVIRUS COVID-19 PCR PHL [MREF] Stat 05/15/19 22:53 CULTURE BLOOD [BC] Stat 05/15/19 23:03 CULTURE URINE [RM] Urgent - Assessment/Plan Last 24 Hours: My Active Orders 05/15/19 22:09 Isolation [COMM] Routine 05/15/19 22:14 Blood Culture x2 Reflex Set [OM.PC] Stat 05/15/19 22:24 CULTURE BLOOD [BC] Stat 05/15/19 22:50 CORONAVIRUS COVID-19 PCR PHL [MREF] Stat 05/15/19 22:53 CULTURE BLOOD [BC] Stat 05/15/19 23:03 CULTURE URINE [RM] Urgent
[2019-05-15] MEDS ORDERED: Zolpidem 5 MG Tab PO PRN (23:56)
[2019-05-15] MEDS ORDERED: Docusate Sodium 100 MG Cap PO PRN (23:56)
[2019-05-15] MEDS ORDERED: oxyCODONE 5 MG Tab PO PRN (23:56)
--- NOTE | 2019-05-16 00:03 | PCM.HP ---
H&P History of Present Illness - General Date of Service: 05/16/19 Admit Problem/Dx: Admission Diagnosis/Problem Admission Diagnosis/Problem Sepsis Source of Information: Patient, Family, Provider - History of Present Illness Initial Comments - Free Text/Narative: 73-year-old with a history of diabetes, coronary artery disease, hypertension. Presented with cough, fever, chills, stuffy nose. Noted to have fever in the emergency room Also complaining of urinary burning. No sick contact, no travel, no high risk exposure to COVID other than clinic visits Bilateral Upper Leg Pain Score (Numeric/FACES): 7 - Related Data Allergies/Adverse Reactions: Allergies Allergy/AdvReac Type Severity Reaction Status Date / Time amitriptyline [From Elavil] Allergy Cannot Verified 04/06/18 23:58 Remember atenolol Allergy Cannot Verified 04/06/18 23:58 Remember codeine Allergy Nausea and Verified 04/06/18 23:58 Vomiting cyclobenzaprine Allergy Cannot Verified 04/06/18 23:58 [From Flexeril] Remember estradiol [From Estraderm] Allergy Cannot Verified 04/06/18 23:58 Remember ibuprofen [From Motrin] Allergy Stomach Verified 04/06/18 23:58 Upset NSAIDS (Non-Steroidal Allergy Cannot Verified 04/06/18 23:58 Anti-Inflamma Remember propoxyphene HCl Allergy Dizziness Verified 04/06/18 23:58 [From Darvon] trazodone Allergy Cannot Verified 04/06/18 23:58 Remember Home Medications: Home Meds Metoprolol Tartrate 25 mg PO DAILY 02/02/13 [History] Simvastatin [Zocor] 40 mg PO BEDTIME 02/02/13 [History] Pregabalin [Lyrica] 75 mg PO BID 11/26/13 [History] Aspirin [Ecotrin] 325 mg PO DAILY 04/16/16 [History] Levothyroxine Sodium [Synthroid] 100 mcg PO DAILY 04/16/16 [History] Magnesium Oxide 400 mg PO DAILY 04/16/16 [History] clonazePAM [Clonazepam] 1 mg PO BID PRN 04/16/16 [History] Multivitamin with Minerals [Multiple Vitamin] 1 tab PO DAILY 03/11/17 [History] Ondansetron 4 mg PO Q8H PRN 03/11/17 [History] Ergocalciferol (Vitamin D2) [Vitamin D2] 1 tab PO .MONTHLY 12/28/17 [History] Fenofibrate Nanocrystallized [Tricor] 135 mg PO DAILY 12/28/17 [History] Insulin Detemir [Levemir Flextouch] 20 units SQ BEDTIME 12/28/17 [History] Cholecalciferol (Vitamin D3) [Vitamin D3] 1,000 units PO DAILY 03/23/18 [History ] Losartan [Cozaar] 50 mg PO DAILY 03/23/18 [History] Pioglitazone [Actos] 15 mg PO DAILY 03/23/18 [History] Past Medical History HEENT History: Reports: Allergic Rhinitis, Cataract, Glaucoma, Hard of Hearing, Other (See Below) Other HEENT History: broken ear drum right ear, WEARS CORRECTIVE LENS Cardiovascular History: Reports: Bypass, CAD, High Cholesterol, Hypertension, CT , Other (See Below) Other Cardiovascular History: abnormal heart rythm Respiratory History: Reports: Bronchitis, Recurrent Gastrointestinal History: Reports: Chronic Constipation Other Gastrointestinal History: peptic ulcer disease Genitourinary History: Reports: Chronic Renal Insuffiency, Other (See Below) Other Genitourinary History: sees a kidney MD at [facility] and was told her kidneys are "ok". Hx of microalbuminuria [employer] History: Reports: , Spontaneous , Other (See Below) Other OB/BYN History: c section X1. breast lumpectomy Musculoskeletal History: Reports: Arthritis, Back Pain, Chronic, Other (See Below) Other Musculoskeletal History: Arthritis in fingers. Left hip bursitis. General weakness. muscle tear of left external oblique. Joint pain left thigh and pelvic region. mild central and bilateral foramnal L5-S1 spinal stenosis with ligamentum flavum hypertrophy. lumbar spondylosis Neurological History: Reports: Headaches, Chronic, Vertigo Psychiatric History: Reports: Anxiety, Depression Endocrine/Metabolic History: Reports: Diabetes, Type II, Hypothyroidism, Obesity /BMI 30+ Other Endocrine/Metabolic History: Takes insulin in am and bedtime. Unsure of insulin's name. Hematologic History: Reports: Anemia, Other (See Below) Other Hematologic History: Hx of hypernatremia Immunologic History: Reports: None Oncologic (Cancer) History: Reports: None Dermatologic History: Reports: None - Infectious Disease History Infectious Disease History: Reports: Chicken Pox, Measles, Shingles - Past Surgical History HEENT Surgical History: Reports: Cataract Surgery, Tonsillectomy Other HEENT Surgeries/Procedures: right eye Cardiovascular Surgical History: Reports: Coronary Artery Bypass, Coronary Artery Stent Other Cardiovascular Surgeries/Procedures: s/p heart surgery Respiratory Surgical History: Reports: None GI Surgical History: Reports: None, Appendectomy, Cholecystectomy, Colonoscopy Female Surgical History: Reports: Breast Biopsy, Section Other Musculoskeletal Surgeries/Procedures:: s/p lumbar spine surgery Social & Family History - Family History Family Medical History: Noncontributory - Tobacco Use Smoking Status *Q: Current Every Day Smoker Years of Tobacco use: 57 Packs/Tins Daily: 0.5 Second Hand Smoke Exposure: Yes - Caffeine Use Caffeine Use: Reports: Coffee Caffeine Use Comment: 8 oz daily - Recreational Drug Use Recreational Drug Use: No - Living Situation & Occupation Living situation: Reports: Single H&P Review of Systems - Review of Systems: Review Of Systems: See Below General: Reports: Fever, Chills, Malaise, Weakness Pulmonary: Reports: Shortness of Breath. Denies: Wheezing Cardiovascular: Denies: Edema Gastrointestinal: Denies: Abdominal Pain Genitourinary: Reports: Dysuria Psychiatric: Denies: Confusion Exam - Exam Exam: See Below - Vital Signs Vital Signs: Last Vital Signs Temp 100 F 05/15/19 23:27 Pulse 90 05/15/19 21:58 Resp 18 05/15/19 21:58 BP 89/43 L 05/15/19 21:58 Pulse Ox 92 L 05/15/19 21:58 - Exam Quality Assessment: Supplemental Oxygen General: Alert, Oriented Neck: Supple Lungs: Clear to Auscultation, Normal Respiratory Effort, Decreased Breath Sounds Cardiovascular: Regular Rate, Regular Rhythm GI/Abdominal Exam: Normal Bowel Sounds, Soft, Non-Tender Extremities: No Pedal Edema - Patient Data Lab Results Last 24 hrs: Laboratory Results - last 24 hr 05/15/19 05/15/19 05/15/19 Range/Units 22:24 22:24 22:24 WBC 21.0 H (5.0-10.0) 10^3/uL RBC 4.51 (4.2-5.4) 10^6/uL Hgb 13.9 (12.0-16.0) g/dL Hct 42.8 (37.0-47.0) % MCV 94.9 (80-100) fL MCH 30.8 (27.0-34.0) pg MCHC 32.5 L (33.0-35.0) g/dL Plt Count 235 D (150-450) 10^3/uL Lymph % (Auto) 6.5 L (20.5-50.1) % [place] % (Auto) 2.1 (2-8) % Eos % (Auto) 0.4 L (1.0-3.0) % Add Manual Diff Yes Neutrophils % (Manual) 84 H (42-75) % Band Neutrophils % 5 % Lymphocytes % (Manual) 7 L (20-50) % Monocytes % (Manual) 3 (2-8) % Eosinophils % (Manual) 1 (1-3) % PT (9.0-12.0) SEC INR (0.9-1.2) Sodium 138 (136-145) mmol/L Potassium 4.7 (3.5-5.1) mmol/L Chloride 100 (98-107) mmol/L Carbon Dioxide 29 (21-32) mmol/L Anion Gap 13.7 H (7-13) mEq/L BUN 29 H (7-18) mg/dL Creatinine 2.68 H (0.55-1.02) mg/dL Est Cr Clr Drug Dosing TNP Estimated GFR (MDRD) 17 BUN/Creatinine Ratio 10.8 (No establ ref range) Glucose 151 H (74-99) mg/dL Lactic Acid 1.8 (0.4-2.0) mmol/L Calcium 8.5 (8.5-10.1) mg/dL Total Bilirubin 0.9 (0.2-1.0) mg/dL AST 21 (15-37) U/L ALT 23 (14-59) U/L Alkaline Phosphatase 58 (46-116) U/L Troponin I < 0.017 (0.000-0.056) ng/mL B-Natriuretic Peptide 228 H (0-100) pg/ml Total Protein 6.8 (6.4-8.2) g/dL Albumin 3.3 L (3.4-5.0) g/dL Globulin 3.5 Albumin/Globulin Ratio 0.94 Urine Color (YELLOW) Urine Appearance (CLEAR) Urine pH (5.0-9.0) Ur Specific [place] (1.005-1.030) Urine Protein (NEGATIVE) Urine Glucose (UA) (NEGATIVE) Urine Ketones (NEGATIVE) Urine Occult Blood (NEGATIVE) Urine Nitrite (NEGATIVE) Urine Bilirubin (NEGATIVE) Urine Urobilinogen (0.2-1.0) mg/dL Ur Leukocyte Esterase (NEGATIVE) Urine RBC /HPF Urine WBC (0-5/HPF) /HPF Ur Epithelial Cells (NOT SEEN) /HPF Amorphous Sediment (NOT SEEN) /HPF Urine Bacteria (0-FEW/HPF) /HPF Urine Mucus (NOT SEEN) /LPF 05/15/19 05/15/19 Range/Units 22:24 23:03 WBC (5.0-10.0) 10^3/uL RBC (4.2-5.4) 10^6/uL Hgb (12.0-16.0) g/dL Hct (37.0-47.0) % MCV (80-100) fL MCH (27.0-34.0) pg MCHC (33.0-35.0) g/dL Plt Count (150-450) 10^3/uL Lymph % (Auto) (20.5-50.1) % [place] % (Auto) (2-8) % Eos % (Auto) (1.0-3.0) % Add Manual Diff Neutrophils % (Manual) (42-75) % Band Neutrophils % % Lymphocytes % (Manual) (20-50) % Monocytes % (Manual) (2-8) % Eosinophils % (Manual) (1-3) % PT 11.0 (9.0-12.0) SEC INR 1.2 (0.9-1.2) Sodium (136-145) mmol/L Potassium (3.5-5.1) mmol/L Chloride (98-107) mmol/L Carbon Dioxide (21-32) mmol/L Anion Gap (7-13) mEq/L BUN (7-18) mg/dL Creatinine (0.55-1.02) mg/dL Est Cr Clr Drug Dosing Estimated GFR (MDRD) BUN/Creatinine Ratio (No establ ref range) Glucose (74-99) mg/dL Lactic Acid (0.4-2.0) mmol/L Calcium (8.5-10.1) mg/dL Total Bilirubin (0.2-1.0) mg/dL AST (15-37) U/L ALT (14-59) U/L Alkaline Phosphatase (46-116) U/L Troponin I (0.000-0.056) ng/mL B-Natriuretic Peptide (0-100) pg/ml Total Protein (6.4-8.2) g/dL Albumin (3.4-5.0) g/dL Globulin Albumin/Globulin Ratio Urine Color Yellow (YELLOW) Urine Appearance Cloudy (CLEAR) Urine pH 6.0 (5.0-9.0) Ur Specific [place] >= 1.030 (1.005-1.030) Urine Protein >=300 H (NEGATIVE) Urine Glucose (UA) Negative (NEGATIVE) Urine Ketones Negative (NEGATIVE) Urine Occult Blood Large H (NEGATIVE) Urine Nitrite Negative (NEGATIVE) Urine Bilirubin Negative (NEGATIVE) Urine Urobilinogen 0.2 (0.2-1.0) mg/dL Ur Leukocyte Esterase Large H (NEGATIVE) Urine RBC 5-10 H /HPF Urine WBC >100 H (0-5/HPF) /HPF Ur Epithelial Cells Few (NOT SEEN) /HPF Amorphous Sediment Few (NOT SEEN) /HPF Urine Bacteria Moderate H (0-FEW/HPF) /HPF Urine Mucus Rare (NOT SEEN) /LPF Result Diagrams: 05/15/19 22:24 05/15/19 22:24 Scott Results Last 24 hrs: Microbiology 05/15/19 22:08 Influenza Type A Antigen Screen - Final Nasal, Unspecified NEGATIVE INFLUENZA A VIRUS AG REFERENCE RANGE: NEGATIVE Influenza Type B Antigen Screen - Final NEGATIVE INFLUENZA B VIRUS AG REFERENCE RANGE: NEGATIVE - Problem List (1) Acute bronchitis SNOMED Code(s): 01902325 ICD Code: J20.9 - ACUTE BRONCHITIS, UNSPECIFIED Status: Acute Current Visit: Yes (2) Anxiety SNOMED Code(s): 19931978 ICD Code: F41.9 - ANXIETY DISORDER, UNSPECIFIED Status: Acute Current Visit: No (3) Diabetes SNOMED Code(s): 60980476 ICD Code: E11.9 - TYPE 2 DIABETES MELLITUS WITHOUT COMPLICATIONS Status: Acute Current Visit: No Qualifiers: Diabetes mellitus type: type 2 Diabetes mellitus complication status: with kidney complications Diabetes mellitus complication detail: with chronic kidney disease Chronic kidney disease stage: unspecified stage (4) UTI, Urinary tract infectious disease SNOMED Code(s): 74609958 ICD Code: N39.0 - URINARY TRACT INFECTION, SITE NOT SPECIFIED Status: Acute Current Visit: No Problem List Initiated/Reviewed/Updated: Yes Orders Last 24hrs: Active Orders 24 hr Category Date Time Status Admission Diagnosis [ADT] Stat ADT 05/15/19 23:42 Ordered Admission Status [Patient Status] [ADT] Routine ADT 05/15/19 23:42 Active Antiembolic Devices [RC] PER UNIT ROUTINE Care 05/15/19 23:57 Active Cardiac Monitoring [RC] . DIRECTED Care 05/15/19 23:42 Active Glucose [Blood Glucose Check, Bedside] [RC] QIDACANDBED Care 05/15/19 23:51 Active Oxygen Therapy [RC] PRN Care 05/15/19 23:56 Active Peripheral IV Care [RC] . DIRECTED Care 05/15/19 23:57 Active Up With Assistance [RC] ASDIRECTED Care 05/15/19 23:56 Active VTE/DVT Education [RC] PER UNIT ROUTINE Care 05/15/19 23:56 Active Vital Signs [RC] Q4H Care 05/15/19 23:56 Active Consistent Carbohydrate Diet [DIET] Diet 05/15/19 Breakfast Active BASIC METABOLIC PANEL,BMP [CHEM] AM Lab 05/16/19 05:15 Ordered CBC WITH AUTO DIFF [HEME] AM Lab 05/16/19 05:15 Ordered CORONAVIRUS COVID-19 PCR PHL [MREF] Stat Lab 05/15/19 22:50 Received CULTURE BLOOD [BC] Stat Lab 05/15/19 22:24 Received CULTURE BLOOD [BC] Stat Lab 05/15/19 22:53 Received CULTURE SPUTUM + SMEAR [RM] Routine Lab 05/15/19 23:50 Ordered CULTURE URINE [RM] Urgent Lab 05/15/19 23:03 Received Aspirin [Ecotrin] Med 05/16/19 09:00 Active 325 mg PO DAILY Azithromycin [Zithromax] 500 mg Med 05/15/19 23:21 Active Sodium Chloride 0.9% [Normal Saline (AdvBag)] 250 ml IV ONETIME Azithromycin [Zithromax] 500 mg Med 05/16/19 23:45 Active Sodium Chloride 0.9% [Normal Saline (AdvBag)] 250 ml IV Q24H Cholecalciferol (Vitamin D3) [Vitamin D3] Med 05/16/19 09:00 Active 25 mcg PO DAILY ClonazePAM [KlonoPIN] Med 05/15/19 23:45 Active 1 mg PO BID PRN Docusate Sodium [Colace] Med 05/15/19 23:56 Ordered 100 mg PO BID PRN Fenofibrate Nanocrystallized [Tricor] Med 05/16/19 09:00 Ordered 135 mg PO DAILY Heparin Sodium Med 05/16/19 06:00 Ordered 5,000 units SUBCUT Q8HR Insulin Glarg,Human.Rec.Analog [LantUS] Med 05/16/19 21:00 Active 20 unit SUBCUT BEDTIME Insulin Lispro [HumaLOG] Med 05/16/19 07:00 Active See Protocol SUBCUT ACBED Levothyroxine [Synthroid] Med 05/16/19 09:00 Active 100 mcg PO DAILY Losartan [Cozaar] Med 05/16/19 09:00 Active 50 mg PO DAILY Magnesium Oxide Med 05/16/19 09:00 Active 250 mg PO DAILY Metoprolol Succinate [Toprol XL] Med 05/16/19 09:00 Active 25 mg PO DAILY Multivitamins/Minerals [Vitamins and Minerals] Med 05/16/19 09:00 Active 1 tab PO DAILY Ondansetron [Zofran ODT] Med 05/15/19 23:56 Ordered 4 mg PO Q6H PRN Pioglitazone [Actos] Med 05/16/19 09:00 Active 15 mg PO DAILY Pregabalin [Lyrica] Med 05/16/19 09:00 Active 75 mg PO BID Simvastatin [Zocor] Med 05/16/19 21:00 Active 40 mg PO BEDTIME Sodium Chloride 0.9% [Normal Saline] 1,000 ml Med 05/15/19 23:45 Ordered IV ASDIRECTED Sodium Chloride 0.9% [Saline Flush] Med 05/15/19 23:56 Ordered 10 ml FLUSH ASDIRECTED PRN Zolpidem [Ambien] Med 05/15/19 23:56 Ordered 5 mg PO BEDTIME PRN cefTRIAXone [Rocephin] 1 gm Med 05/16/19 23:45 Active Sodium Chloride 0.9% [Normal Saline] 50 ml IV Q24H oxyCODONE Med 05/15/19 23:56 Ordered 5 mg PO Q4H PRN Antiembolic Hose [OM.PC] Per Unit Routine Oth 05/15/19 23:57 Ordered Blood Culture x2 Reflex Set [OM.PC] Stat Oth 05/15/19 22:14 Ordered Isolation [COMM] Routine Oth 05/15/19 22:09 Active Peripheral IV Insertion Adult [OM.PC] Routine Oth 05/15/19 23:56 Ordered Resuscitation Status Routine Resus Stat 05/15/19 23:56 Ordered Medication Orders Aspirin (Ecotrin) 325 mg PO DAILY [facility]REZ Cholecalciferol (Vitamin D3) 25 mcg PO DAILY [facility]RE[facility] Clonazepam (Klonopin) 1 mg PO BID PRN PRN Reason: Anxiety Docusate Sodium (Colace) 100 mg PO BID PRN PRN Reason: Constipation Heparin Sodium (Porcine) (Heparin Sodium) 5,000 units SUBCUT Q8HR RAMÍREZ Azithromycin 500 mg/ Sodium (Chloride) 250 mls @ 250 mls/hr IV ONETIME ONE Stop: 05/16/19 00:20 Ceftriaxone Sodium 1 gm/ (Sodium Chloride) 50 mls @ 100 mls/hr IV Q24H RAMÍREZ Azithromycin 500 mg/ Sodium (Chloride) 250 mls @ 250 mls/hr IV Q24H RAMÍREZ Sodium Chloride (Normal Saline) 1,000 mls @ 100 mls/hr IV ASDIRECTED RAMÍREZ Insulin Glargine (Lantus) 20 unit SUBCUT BEDTIME RAMÍREZ Insulin Human Lispro (Humalog) 0 unit SUBCUT ACBED RAMÍREZ; Protocol Levothyroxine Sodium (Synthroid) 100 mcg PO DAILY [facility] Losartan Potassium (Cozaar) 50 mg PO DAILY [facility] Magnesium Oxide (Magnesium Oxide) 250 mg PO DAILY [facility] Metoprolol Succinate (Toprol Xl) 25 mg PO DAILY [facility] Multivitamins/Minerals (Vitamins And Minerals) 1 tab PO DAILY [facility] Non-Formulary Medication (Fenofibrate Nanocrystallized [Tricor]) 135 mg PO DAILY [facility] Ondansetron HCl (Zofran Odt) 4 mg PO Q6H PRN PRN Reason: nausea, able to take PO Oxycodone HCl (Oxycodone) 5 mg PO Q4H PRN PRN Reason: Pain (moderate 4-6) Pioglitazone HCl (Actos) 15 mg PO DAILY [facility] Pregabalin (Lyrica) 75 mg PO BID [facility] Simvastatin (Zocor) 40 mg PO BEDTIME [facility] Sodium Chloride (Saline Flush) 10 ml FLUSH ASDIRECTED PRN PRN Reason: Keep Vein Open Zolpidem Tartrate (Ambien) 5 mg PO BEDTIME PRN PRN Reason: Sleep Assessment/Plan Comment:: 73-year-old with a history of diabetes, coronary artery disease, hypertension. Presented with cough, fever, chills. Noted to have fever, leukocytosis. Chest x- ray showed no pneumonia. Acute respiratory failure, hypoxemia Admission oxygen saturation was around 80% on room air Supplement oxygen as needed Upper respiratory tract infection Obtain sputum culture Obtain blood culture Obtain COV ID screening Maintain isolation Treat with azithromycin and Rocephin Urinary tract infection Obtain urine culture Treat with Rocephin Hypertension Continue metoprolol, ARB coronary artery disease Status post CABG Continue aspirin, metoprolol, ARB Diabetes Continue Actos, long-acting insulin Supplement insulin and hypoglycemia treatment as needed History of anxiety Continue benzodiazepines Acute renal failure Baseline creatinine around 1.8 Treat with IV fluids Sepsis, no severe sepsis Social of infection is upper respiratory, urine Has had fever, leukocytosis Hydrate well, treat infection DVT prophylaxis with subcutaneous heparin
[2019-05-16] MEDS: Heparin Sodium 5,000 Units/ML Vial SUBCUT SCH ×4 (05:49→22:49)
[2019-05-16] MEDS: Sodium Chloride 0.9% 1,000 ML IV SCH ×2 (07:56→21:43)
[2019-05-16] MEDS: Ondansetron 4 MG Tab.DIS PO PRN (08:03)
[2019-05-16] MEDS: Insulin Lispro 100 Units/ML 3 ML Vial SUBCUT SCH ×4 (08:04→21:01)
[2019-05-16] MEDS: Pregabalin 75 MG Cap PO SCH ×2 (08:29→20:54)
[2019-05-16] MEDS: Levothyroxine 100 MCG Tab PO SCH (08:29)
[2019-05-16] MEDS: Cholecalciferol (Vitamin D3) 25 MCG Tab PO SCH (08:29)
[2019-05-16] MEDS: Aspirin 325 MG Tab.EC PO SCH (08:29)
[2019-05-16] MEDS: Multivitamins, Therapeutic with Minerals Tab PO SCH (08:29)
[2019-05-16 08:32] LABS: ANION GAP 13.7 mEq/L (7-13)
[2019-05-16] MEDS: Acetaminophen 325 MG Tab PO PRN (08:33)
[2019-05-16] MEDS: Metoprolol Succinate 25 MG Tab.ER PO SCH (10:08)
[2019-05-16] MEDS: Losartan 50 MG Tab PO SCH (10:08)
[2019-05-16] MEDS ORDERED: Piperacillin/Tazobactam 3.375 GM in Sodium Chloride 0.9% 100 ML IV SCH (10:15)
[2019-05-16] MEDS ORDERED: Sodium Chloride 0.9% 1,000 ML IV SCH ×2 (10:15→11:00)
--- NOTE | 2019-05-16 10:17 | PCM.PN ---
- General Info Date of Service: 05/16/19 Admission Dx/Problem (Free Text): Admission Diagnosis/Problem Admission Diagnosis/Problem Sepsis Subjective Update: 73-year-old with a history of diabetes, coronary artery disease, hypertension who presented with cough, fever, chills, stuffy nose. She was admitted for sepsis probably due to UTI. She was started on IV ceftriaxone and Azithromycin. She is also being screened for COVID-19. She denied sick contact, recent travel. This morning patient was seen and examined. She had a fever spike this morning. Tomorrow is 10 2F. She was also noted to be hypotensive. Patient denies any new symptoms apart from feeling lightheaded. She still has productive cough with white sputum. She denies shortness of breath, chest, chills. No diarrhea, no urinary symptoms. No skin rash. Review of labs shows myself trended down. CoVID-19 test pending. I sit her antibiotics IV vancomycin and Zosyn. I administered 1 of NS bolus. Functional Status: Reports: Pain Controlled - Review of Systems General: Reports: Other (dizziness) HEENT: Reports: No Symptoms Pulmonary: Reports: No Symptoms Cardiovascular: Reports: No Symptoms Gastrointestinal: Reports: No Symptoms Genitourinary: Reports: No Symptoms Musculoskeletal: Reports: No Symptoms Skin: Reports: No Symptoms Neurological: Reports: No Symptoms Psychiatric: Reports: No Symptoms - Patient Data Vitals - Most Recent: Last Vital Signs Temp 102.2 F H 05/16/19 08:24 Pulse 108 H 05/16/19 08:24 Resp 20 05/16/19 08:24 BP 114/86 05/16/19 08:24 Pulse Ox 94 L 05/16/19 08:24 Weight - Most Recent: 178 lb 2 oz I&O - Last 24 Hours: Intake & Output 05/15/19 05/16/19 05/16/19 22:59 06:59 14:59 Intake Total 940 Output Total 200 Balance 940 -200 Lab Results Last 24 Hours: Laboratory Results - last 24 hr 05/15/19 05/15/19 05/15/19 Range/Units 22:24 22:24 22:24 WBC 21.0 H (5.0-10.0) 10^3/uL RBC 4.51 (4.2-5.4) 10^6/uL Hgb 13.9 (12.0-16.0) g/dL Hct 42.8 (37.0-47.0) % MCV 94.9 (80-100) fL MCH 30.8 (27.0-34.0) pg MCHC 32.5 L (33.0-35.0) g/dL Plt Count 235 D (150-450) 10^3/uL Neut % (Auto) (42.2-75.2) % Lymph % (Auto) 6.5 L (20.5-50.1) % [place] % (Auto) 2.1 (2-8) % Eos % (Auto) 0.4 L (1.0-3.0) % Baso % (Auto) (0.0-1.0) % Add Manual Diff Yes Neutrophils % (Manual) 84 H (42-75) % Band Neutrophils % 5 % Lymphocytes % (Manual) 7 L (20-50) % Monocytes % (Manual) 3 (2-8) % Eosinophils % (Manual) 1 (1-3) % PT (9.0-12.0) SEC INR (0.9-1.2) Sodium 138 (136-145) mmol/L Potassium 4.7 (3.5-5.1) mmol/L Chloride 100 (98-107) mmol/L Carbon Dioxide 29 (21-32) mmol/L Anion Gap 13.7 H (7-13) mEq/L BUN 29 H (7-18) mg/dL Creatinine 2.68 H (0.55-1.02) mg/dL Est Cr Clr Drug Dosing TNP Estimated GFR (MDRD) 17 BUN/Creatinine Ratio 10.8 (No establ ref range) Glucose 151 H (74-99) mg/dL Lactic Acid 1.8 (0.4-2.0) mmol/L Calcium 8.5 (8.5-10.1) mg/dL Total Bilirubin 0.9 (0.2-1.0) mg/dL AST 21 (15-37) U/L ALT 23 (14-59) U/L Alkaline Phosphatase 58 (46-116) U/L Troponin I < 0.017 (0.000-0.056) ng/mL B-Natriuretic Peptide 228 H (0-100) pg/ml Total Protein 6.8 (6.4-8.2) g/dL Albumin 3.3 L (3.4-5.0) g/dL Globulin 3.5 Albumin/Globulin Ratio 0.94 Urine Color (YELLOW) Urine Appearance (CLEAR) Urine pH (5.0-9.0) Ur Specific [place] (1.005-1.030) Urine Protein (NEGATIVE) Urine Glucose (UA) (NEGATIVE) Urine Ketones (NEGATIVE) Urine Occult Blood (NEGATIVE) Urine Nitrite (NEGATIVE) Urine Bilirubin (NEGATIVE) Urine Urobilinogen (0.2-1.0) mg/dL Ur Leukocyte Esterase (NEGATIVE) Urine RBC /HPF Urine WBC (0-5/HPF) /HPF Ur Epithelial Cells (NOT SEEN) /HPF Amorphous Sediment (NOT SEEN) /HPF Urine Bacteria (0-FEW/HPF) /HPF Urine Mucus (NOT SEEN) /LPF 05/15/19 05/15/19 05/16/19 Range/Units 22:24 23:03 07:13 WBC 18.6 H (5.0-10.0) 10^3/uL RBC 4.27 (4.2-5.4) 10^6/uL Hgb 13.0 (12.0-16.0) g/dL Hct 40.9 (37.0-47.0) % MCV 95.8 (80-100) fL MCH 30.4 (27.0-34.0) pg MCHC 31.8 L (33.0-35.0) g/dL Plt Count 208 (150-450) 10^3/uL Neut % (Auto) 89.3 H (42.2-75.2) % Lymph % (Auto) 9.4 L (20.5-50.1) % [place] % (Auto) 0.8 L (2-8) % Eos % (Auto) 0.3 L (1.0-3.0) % Baso % (Auto) 0.2 (0.0-1.0) % Add Manual Diff Neutrophils % (Manual) (42-75) % Band Neutrophils % % Lymphocytes % (Manual) (20-50) % Monocytes % (Manual) (2-8) % Eosinophils % (Manual) (1-3) % PT 11.0 (9.0-12.0) SEC INR 1.2 (0.9-1.2) Sodium (136-145) mmol/L Potassium (3.5-5.1) mmol/L Chloride (98-107) mmol/L Carbon Dioxide (21-32) mmol/L Anion Gap (7-13) mEq/L BUN (7-18) mg/dL Creatinine (0.55-1.02) mg/dL Est Cr Clr Drug Dosing Estimated GFR (MDRD) BUN/Creatinine Ratio (No establ ref range) Glucose (74-99) mg/dL Lactic Acid (0.4-2.0) mmol/L Calcium (8.5-10.1) mg/dL Total Bilirubin (0.2-1.0) mg/dL AST (15-37) U/L ALT (14-59) U/L Alkaline Phosphatase (46-116) U/L Troponin I (0.000-0.056) ng/mL B-Natriuretic Peptide (0-100) pg/ml Total Protein (6.4-8.2) g/dL Albumin (3.4-5.0) g/dL Globulin Albumin/Globulin Ratio Urine Color Yellow (YELLOW) Urine Appearance Cloudy (CLEAR) Urine pH 6.0 (5.0-9.0) Ur Specific [place] >= 1.030 (1.005-1.030) Urine Protein >=300 H (NEGATIVE) Urine Glucose (UA) Negative (NEGATIVE) Urine Ketones Negative (NEGATIVE) Urine Occult Blood Large H (NEGATIVE) Urine Nitrite Negative (NEGATIVE) Urine Bilirubin Negative (NEGATIVE) Urine Urobilinogen 0.2 (0.2-1.0) mg/dL Ur Leukocyte Esterase Large H (NEGATIVE) Urine RBC 5-10 H /HPF Urine WBC >100 H (0-5/HPF) /HPF Ur Epithelial Cells Few (NOT SEEN) /HPF Amorphous Sediment Few (NOT SEEN) /HPF Urine Bacteria Moderate H (0-FEW/HPF) /HPF Urine Mucus Rare (NOT SEEN) /LPF 05/15/20 Range/Units 07:13 WBC (5.0-10.0) 10^3/uL RBC (4.2-5.4) 10^6/uL Hgb (12.0-16.0) g/dL Hct (37.0-47.0) % MCV (80-100) fL MCH (27.0-34.0) pg MCHC (33.0-35.0) g/dL Plt Count (150-450) 10^3/uL Neut % (Auto) (42.2-75.2) % Lymph % (Auto) (20.5-50.1) % Baxter % (Auto) (2-8) % Eos % (Auto) (1.0-3.0) % Baso % (Auto) (0.0-1.0) % Add Manual Diff Neutrophils % (Manual) (42-75) % Band Neutrophils % % Lymphocytes % (Manual) (20-50) % Monocytes % (Manual) (2-8) % Eosinophils % (Manual) (1-3) % PT (9.0-12.0) SEC INR (0.9-1.2) Sodium 141 (136-145) mmol/L Potassium 4.7 (3.5-5.1) mmol/L Chloride 104 (98-107) mmol/L Carbon Dioxide 28 (21-32) mmol/L Anion Gap 13.7 H (7-13) mEq/L BUN 32 H (7-18) mg/dL Creatinine 2.75 H (0.55-1.02) mg/dL Est Cr Clr Drug Dosing 14.41 Estimated GFR (MDRD) 17 BUN/Creatinine Ratio (No establ ref range) Glucose 137 H (74-99) mg/dL Lactic Acid (0.4-2.0) mmol/L Calcium 8.1 L (8.5-10.1) mg/dL Total Bilirubin (0.2-1.0) mg/dL AST (15-37) U/L ALT (14-59) U/L Alkaline Phosphatase (46-116) U/L Troponin I (0.000-0.056) ng/mL B-Natriuretic Peptide (0-100) pg/ml Total Protein (6.4-8.2) g/dL Albumin (3.4-5.0) g/dL Globulin Albumin/Globulin Ratio Urine Color (YELLOW) Urine Appearance (CLEAR) Urine pH (5.0-9.0) Ur Specific [place] (1.005-1.030) Urine Protein (NEGATIVE) Urine Glucose (UA) (NEGATIVE) Urine Ketones (NEGATIVE) Urine Occult Blood (NEGATIVE) Urine Nitrite (NEGATIVE) Urine Bilirubin (NEGATIVE) Urine Urobilinogen (0.2-1.0) mg/dL Ur Leukocyte Esterase (NEGATIVE) Urine RBC /HPF Urine WBC (0-5/HPF) /HPF Ur Epithelial Cells (NOT SEEN) /HPF Amorphous Sediment (NOT SEEN) /HPF Urine Bacteria (0-FEW/HPF) /HPF Urine Mucus (NOT SEEN) /LPF Scott Results Last 24 Hours: Microbiology 05/15/19 23:03 Urine Culture - Preliminary Urine, Quick Cath (In-Out) 05/15/19 22:08 Influenza Type A Antigen Screen - Final Nasal, Unspecified NEGATIVE INFLUENZA A VIRUS AG REFERENCE RANGE: NEGATIVE Influenza Type B Antigen Screen - Final NEGATIVE INFLUENZA B VIRUS AG REFERENCE RANGE: NEGATIVE Med Orders - Current: Current Medications Acetaminophen (Tylenol) 650 mg PO Q4H PRN PRN Reason: Fever Aspirin (Ecotrin) 325 mg PO DAILY [facility] Last Admin: 05/16/19 08:29 Dose: 325 mg Cholecalciferol (Vitamin D3) 25 mcg PO DAILY [facility] Last Admin: 05/16/19 08:29 Dose: 25 mcg Clonazepam (Klonopin) 1 mg PO BID PRN PRN Reason: Anxiety Docusate Sodium (Colace) 100 mg PO BID PRN PRN Reason: Constipation Heparin Sodium (Porcine) (Heparin Sodium) 5,000 units SUBCUT Q8HR [facility] Last Admin: 05/16/19 05:49 Dose: 5,000 units Sodium Chloride (Normal Saline) 1,000 mls @ 100 mls/hr IV ASDIRECTED [facility] Last Admin: 05/16/19 07:56 Dose: 100 mls/hr Piperacillin Sod/Tazobactam (Sod 3.375 gm/ Sodium Chloride) 100 mls @ 200 mls/ hr IV Q6H RAMÍREZ Sodium Chloride (Normal Saline) 1,000 mls @ 999 mls/hr IV ASDIRECTED [facility] Stop: 05/16/19 11:16 Insulin Glargine (Lantus) 20 unit SUBCUT BEDTIME [facility] Insulin Human Lispro (Humalog) 0 unit SUBCUT ACBED [facility]; Protocol Last Admin: 05/16/19 08:04 Dose: Not Given Levothyroxine Sodium (Synthroid) 100 mcg PO DAILY [facility] Last Admin: 05/16/19 08:29 Dose: 100 mcg Losartan Potassium (Cozaar) 50 mg PO DAILY [facility] Last Admin: 05/16/19 10:08 Dose: Not Given Magnesium Oxide (Magnesium Oxide) 250 mg PO DAILY [facility] Last Admin: 05/16/19 08:29 Dose: 250 mg Metoprolol Succinate (Toprol Xl) 25 mg PO DAILY [facility] Last Admin: 05/16/19 10:08 Dose: Not Given Multivitamins/Minerals (Vitamins And Minerals) 1 tab PO DAILY [facility] Last Admin: 05/16/19 08:29 Dose: 1 tab Non-Formulary Medication (Fenofibrate Nanocrystallized [Tricor]) 135 mg PO DAILY [facility] Ondansetron HCl (Zofran Odt) 4 mg PO Q6H PRN PRN Reason: nausea, able to take PO Last Admin: 05/16/19 08:03 Dose: 4 mg Oxycodone HCl (Oxycodone) 5 mg PO Q4H PRN PRN Reason: Pain (moderate 4-6) Pioglitazone HCl (Actos) 15 mg PO DAILY [facility] Last Admin: 05/16/19 08:37 Dose: 15 mg Pregabalin (Lyrica) 75 mg PO BID [facility] Last Admin: 05/16/19 08:29 Dose: 75 mg Simvastatin (Zocor) 40 mg PO BEDTIME [facility] Sodium Chloride (Saline Flush) 10 ml FLUSH ASDIRECTED PRN PRN Reason: Keep Vein Open Vancomycin HCl (Pharmacy To Dose - Vancomycin) 1 dose .XX ASDIRECTED [facility] Zolpidem Tartrate (Ambien) 5 mg PO BEDTIME PRN PRN Reason: Sleep Discontinued Medications Acetaminophen (Tylenol) 650 mg PO NOW ONE Stop: 05/15/19 22:19 Last Admin: 05/15/19 22:25 Dose: 650 mg Sodium Chloride (Normal Saline) 1,000 mls @ 200 mls/hr IV .BOLUS ONE Stop: 05/16/19 03:13 Last Admin: 05/15/19 22:25 Dose: 200 mls/hr Azithromycin 500 mg/ Sodium (Chloride) 250 mls @ 250 mls/hr IV ONETIME ONE Stop: 05/16/19 00:20 Last Admin: 05/16/19 00:17 Dose: 250 mls/hr Ceftriaxone Sodium 1 gm/ (Sodium Chloride) 50 mls @ 100 mls/hr IV ONETIME ONE Stop: 05/15/19 23:50 Last Admin: 05/15/19 23:37 Dose: 100 mls/hr Ceftriaxone Sodium 1 gm/ (Sodium Chloride) 50 mls @ 100 mls/hr IV Q24H RAMÍREZ Azithromycin 500 mg/ Sodium (Chloride) 250 mls @ 250 mls/hr IV Q24H RAMÍREZ - Exam Quality Assessment: Supplemental Oxygen General: Alert, Oriented HEENT: Pupils Equal, Pupils Reactive, EOMI, Mucous Membr. Moist/[place] Neck: Supple Lungs: Clear to Auscultation, Normal Respiratory Effort Cardiovascular: Regular Rate, Regular Rhythm GI/Abdominal Exam: Normal Bowel Sounds, Soft, Non-Tender, No Organomegaly, No Distention, No Abnormal Bruit, No Mass, Pelvis Stable (Female) Exam: Normal External Exam, Normal Speculum Exam, Normal Bimanual Exam Back Exam: Normal Inspection, Full Range of Motion Extremities: Normal Inspection, Normal Range of Motion, Non-Tender, No Pedal Edema, Normal Capillary Refill Skin: Warm, Dry, Intact Wound/Incisions: Healing Well Neurological: No New Focal Deficit Psy/Mental Status: Alert, Normal Affect, Normal Mood Sepsis Event Note - Evaluation Sepsis Screening Result: Severe Sepsis Risk - Focused Exam Vital Signs: Vital Signs Temp Pulse Resp BP BP Pulse Ox 05/16/19 08:24 102.2 F H 108 H 20 114/86 94 L 05/16/19 07:44 101.6 F H 111 H 28 H 106/58 L 93 L 05/15/19 23:56 98.6 F 82 20 106/52 L 104/41 L 96 05/15/19 23:27 100 F Date Exam was Performed: 05/16/19 Time Exam was Performed: 10:33 - Problem List Review Problem List Initiated/Reviewed/Updated: Yes - My Orders Last 24 Hours: My Active Orders 05/16/19 10:15 Pharmacy to Dose - Vancomycin 1 dose .XX ASDIRECTED Piperacillin/Tazobactam [Zosyn] 3.375 gm Sodium Chloride 0.9% [Normal Saline] 100 ml IV Q6H Sodium Chloride 0.9% [Normal Saline] 1,000 ml IV ASDIRECTED - Plan Plan:: 73-year-old with a history of diabetes, coronary artery disease, hypertension. Presented with cough, fever, chills. Noted to have fever, leukocytosis. Chest x- ray negative for pneumonia. Sepsis with shock. Etiology not clear Follow up on cultures Procalcitonin Aggressive IV hydration Switch antibiotics to IV Zosyn and Vanco Acute respiratory failure with hypoxemia Admission oxygen saturation was around 80% on room air Continue supplemental oxygen and wean off as able Upper respiratory tract infection/Acute bronchitis Follow up on sputum culture Follow Up on blood culture Follow Up COV ID test Maintain droplet and contact isolation Continue supportive care Probable Urinary tract infection Follow up urine culture Started on Zosyn Hypertension Currently hypotensive Hold metoprolol, ARB Monitor due to) coronary artery disease Status post CABG Continue aspirin, metoprolol, ARB Diabetes Continue Actos, long-acting insulin Supplement insulin and hypoglycemia treatment as needed History of anxiety Continue benzodiazepines Acute renal failure Baseline creatinine around 1.8 IV fluids BMP every 8 hours Avoid nephrotoxic agents Physical deconditioning PT/OT DVT prophylaxis with subcutaneous heparin
[2019-05-16] MEDS: Piperacillin/Tazobactam 2.25 GM in Sodium Chloride 0.9% 50 ML IV SCH ×2 (10:58→16:40)
[2019-05-16] MEDS: FENOFIBRATE NANOCRYSTALLIZED PO SCH (12:02)
[2019-05-16] MEDS: ClonazePAM 0.5 MG Tab PO PRN (12:02)
[2019-05-16 19:28] LABS: ANION GAP 15.4 mEq/L (7-13)
[2019-05-16] MEDS: Simvastatin 40 MG Tab PO SCH (20:55)
[2019-05-16] MEDS: Insulin Glarg,Human.Rec.Analog 100 Unit/ML SUBCUT SCH (21:10)
[2019-05-16] MEDS: Nystatin Ointment 15 GM Tube TOP SCH (21:11)
[2019-05-16] MEDS ORDERED: Azithromycin 500 MG in Sodium Chloride 0.9% 250 ML IV SCH (23:45)
[2019-05-16] MEDS ORDERED: cefTRIAXone 1 GM in Sodium Chloride 0.9% 50 ML IV SCH (23:45)
[2019-05-17 05:31] LABS: ANION GAP 15.6 mEq/L (7-13)
[2019-05-17] MEDS: Sodium Chloride 0.9% 1,000 ML IV SCH (06:00)
[2019-05-17] MEDS: Piperacillin/Tazobactam 2.25 GM in Sodium Chloride 0.9% 50 ML IV SCH ×4 (06:02→22:20)
[2019-05-17] MEDS: Heparin Sodium 5,000 Units/ML Vial SUBCUT SCH ×3 (07:29→21:20)
[2019-05-17] MEDS: Acetaminophen 325 MG Tab PO PRN ×2 (07:53→21:22)
[2019-05-17] MEDS: Insulin Lispro 100 Units/ML 3 ML Vial SUBCUT SCH ×4 (07:58→21:17)
[2019-05-17] MEDS: Levothyroxine 100 MCG Tab PO SCH (08:00)
[2019-05-17] MEDS: Metoprolol Succinate 25 MG Tab.ER PO SCH (08:01)
[2019-05-17] MEDS: Losartan 50 MG Tab PO SCH (08:01)
[2019-05-17] MEDS: Pregabalin 75 MG Cap PO SCH ×2 (08:01→21:21)
[2019-05-17] MEDS: FENOFIBRATE NANOCRYSTALLIZED PO SCH (08:01)
[2019-05-17] MEDS: Nystatin Ointment 15 GM Tube TOP SCH (08:02)
[2019-05-17] MEDS: Aspirin 325 MG Tab.EC PO SCH (08:02)
[2019-05-17] MEDS: Multivitamins, Therapeutic with Minerals Tab PO SCH (08:02)
[2019-05-17] MEDS: Cholecalciferol (Vitamin D3) 25 MCG Tab PO SCH (08:02)
[2019-05-17] MEDS: Nystatin Topical Powder 30 GM Bottle TOP SCH ×3 (11:34→21:23)
--- NOTE | 2019-05-17 11:46 | PCM.PN ---
- General Info Date of Service: 05/17/19 Admission Dx/Problem (Free Text): Admission Diagnosis/Problem Admission Diagnosis/Problem Sepsis Subjective Update: 73-year-old with a history of diabetes, coronary artery disease, hypertension who presented with cough, fever, chills, stuffy nose. She was admitted for sepsis probably due to UTI. She was started on IV ceftriaxone and Azithromycin. She is also being screened for COVID-19. She denied sick contact, recent travel. This morning patient was seen and examined. She is not doing ok. She is concerned about her COVID-19 test. I told her status is still pending. She had a fever started this morning. Tmax. of 100.7F. She denies fever, chills, nausea , vomiting. No abdominal pain. No shortness of breath or cough. Vitals stable. Functional Status: Reports: Pain Controlled - Review of Systems General: Reports: No Symptoms HEENT: Reports: No Symptoms Pulmonary: Reports: No Symptoms Cardiovascular: Reports: No Symptoms Gastrointestinal: Reports: No Symptoms Genitourinary: Reports: No Symptoms Musculoskeletal: Reports: No Symptoms Skin: Reports: No Symptoms Neurological: Reports: No Symptoms Psychiatric: Reports: No Symptoms - Patient Data Vitals - Most Recent: Last Vital Signs Temp 100.7 F H 05/17/19 07:27 Pulse 96 05/17/19 08:01 Resp 24 H 05/17/19 07:27 BP 142/61 H 05/17/19 08:01 Pulse Ox 93 L 05/17/19 07:45 Weight - Most Recent: 178 lb 2 oz I&O - Last 24 Hours: Intake & Output 05/16/19 05/17/19 05/17/19 22:59 06:59 14:59 Intake Total 240 Output Total 800 600 Balance -800 -360 Lab Results Last 24 Hours: Laboratory Results - last 24 hr 05/16/19 05/16/19 05/16/19 Range/Units 07:13 11:18 16:38 WBC (5.0-10.0) 10^3/uL RBC (4.2-5.4) 10^6/uL Hgb (12.0-16.0) g/dL Hct (37.0-47.0) % MCV (80-100) fL MCH (27.0-34.0) pg MCHC (33.0-35.0) g/dL Plt Count (150-450) 10^3/uL Sodium (136-145) mmol/L Potassium (3.5-5.1) mmol/L Chloride (98-107) mmol/L Carbon Dioxide (21-32) mmol/L Anion Gap (7-13) mEq/L BUN (7-18) mg/dL Creatinine (0.55-1.02) mg/dL Est Cr Clr Drug Dosing mL/min Estimated GFR (MDRD) Glucose (74-99) mg/dL POC Glucose 190 H 231 H (83-110) mg/dl Calcium (8.5-10.1) mg/dL Phosphorus (2.6-4.7) mg/dL Magnesium (1.8-2.4) mg/dL Procalcitonin 15.64 H (<0.10) ng/mL 05/16/19 05/16/19 05/17/19 Range/Units 19:08 20:58 04:15 WBC 14.3 H (5.0-10.0) 10^3/uL RBC 3.62 L (4.2-5.4) 10^6/uL Hgb 11.1 L D (12.0-16.0) g/dL Hct 35.1 L (37.0-47.0) % MCV 97.0 (80-100) fL MCH 30.7 (27.0-34.0) pg MCHC 31.6 L (33.0-35.0) g/dL Plt Count 206 (150-450) 10^3/uL Sodium 143 (136-145) mmol/L Potassium 4.4 (3.5-5.1) mmol/L Chloride 106 (98-107) mmol/L Carbon Dioxide 26 (21-32) mmol/L Anion Gap 15.4 H (7-13) mEq/L BUN 36 H (7-18) mg/dL Creatinine 3.16 H (0.55-1.02) mg/dL Est Cr Clr Drug Dosing 12.54 mL/min Estimated GFR (MDRD) 14 Glucose 166 H (74-99) mg/dL POC Glucose 182 H (83-110) mg/dl Calcium 7.4 L (8.5-10.1) mg/dL Phosphorus (2.6-4.7) mg/dL Magnesium (1.8-2.4) mg/dL Procalcitonin (<0.10) ng/mL 05/17/19 05/17/19 05/17/19 Range/Units 04:15 04:15 07:25 WBC (5.0-10.0) 10^3/uL RBC (4.2-5.4) 10^6/uL Hgb (12.0-16.0) g/dL Hct (37.0-47.0) % MCV (80-100) fL MCH (27.0-34.0) pg MCHC (33.0-35.0) g/dL Plt Count (150-450) 10^3/uL Sodium 142 (136-145) mmol/L Potassium 4.6 (3.5-5.1) mmol/L Chloride 107 (98-107) mmol/L Carbon Dioxide 24 (21-32) mmol/L Anion Gap 15.6 H (7-13) mEq/L BUN 36 H (7-18) mg/dL Creatinine 2.87 H (0.55-1.02) mg/dL Est Cr Clr Drug Dosing 13.81 mL/min Estimated GFR (MDRD) 16 Glucose 234 H (74-99) mg/dL POC Glucose 183 H (83-110) mg/dl Calcium 7.1 L (8.5-10.1) mg/dL Phosphorus 3.0 (2.6-4.7) mg/dL Magnesium 1.9 (1.8-2.4) mg/dL Procalcitonin (<0.10) ng/mL Scott Results Last 24 Hours: Microbiology 05/15/19 23:03 Urine Culture - Preliminary Urine, Quick Cath (In-Out) 05/15/19 22:53 Aerobic Blood Culture - Preliminary Blood - Venous - Lab Draw NO GROWTH AFTER 1 DAY Anaerobic Blood Culture - Preliminary 05/16/19 11:15 MRSA (PCR) - Final Nasal, Unspecified 05/15/19 22:24 Aerobic Blood Culture - Preliminary Blood - Venous NO GROWTH AFTER 1 DAY Anaerobic Blood Culture - Preliminary NO GROWTH AFTER 1 DAY Med Orders - Current: Current Medications Acetaminophen (Tylenol) 650 mg PO Q4H PRN PRN Reason: Fever Last Admin: 05/17/19 07:53 Dose: 650 mg Aspirin (Ecotrin) 325 mg PO DAILY [facility] Last Admin: 05/17/19 08:02 Dose: 325 mg Cholecalciferol (Vitamin D3) 25 mcg PO DAILY [facility] Last Admin: 05/17/19 08:02 Dose: 25 mcg Clonazepam (Klonopin) 1 mg PO BID PRN PRN Reason: Anxiety Last Admin: 05/16/19 12:02 Dose: 1 mg Docusate Sodium (Colace) 100 mg PO BID PRN PRN Reason: Constipation Heparin Sodium (Porcine) (Heparin Sodium) 5,000 units SUBCUT Q8HR [facility] Last Admin: 05/17/19 07:29 Dose: 5,000 units Sodium Chloride (Normal Saline) 1,000 mls @ 100 mls/hr IV ASDIRECTED [facility] Last Admin: 05/17/19 06:00 Dose: 100 mls/hr Piperacillin Sod/Tazobactam (Sod 2.25 gm/ Sodium Chloride) 50 mls @ 100 mls/hr IV Q8HR [facility] Last Admin: 05/17/19 06:02 Dose: 100 mls/hr Sodium Chloride (Normal Saline) 1,000 mls @ 100 mls/hr IV ASDIRECTED [facility] Insulin Glargine (Lantus) 20 unit SUBCUT BEDTIME [facility] Last Admin: 05/16/19 21:10 Dose: 20 units Insulin Human Lispro (Humalog) 0 unit SUBCUT ACBED [facility]; Protocol Last Admin: 05/17/19 07:58 Dose: 1 unit Levothyroxine Sodium (Synthroid) 100 mcg PO DAILY [facility] Last Admin: 05/17/19 08:00 Dose: 100 mcg Losartan Potassium (Cozaar) 50 mg PO DAILY [facility] Last Admin: 05/17/19 08:01 Dose: 50 mg Magnesium Oxide (Magnesium Oxide) 250 mg PO DAILY [facility] Last Admin: 05/17/19 08:02 Dose: 250 mg Metoprolol Succinate (Toprol Xl) 25 mg PO DAILY [facility] Last Admin: 05/17/19 08:01 Dose: 25 mg Multivitamins/Minerals (Vitamins And Minerals) 1 tab PO DAILY [facility] Last Admin: 05/17/19 08:02 Dose: 1 tab Fenofibrate Nanocrystallized [ Tricor] 135 Mg Pt Own Med 135 mg PO DAILY [facility] Last Admin: 05/17/19 08:01 Dose: 135 mg Nystatin (Nystop) 0 gm TOP TID [facility] Last Admin: 05/17/19 11:34 Dose: Not Given Ondansetron HCl (Zofran Odt) 4 mg PO Q6H PRN PRN Reason: nausea, able to take PO Last Admin: 05/16/19 08:03 Dose: 4 mg Oxycodone HCl (Oxycodone) 5 mg PO Q4H PRN PRN Reason: Pain (moderate 4-6) Pioglitazone HCl (Actos) 15 mg PO DAILY [facility] Last Admin: 05/17/19 08:01 Dose: 15 mg Pregabalin (Lyrica) 75 mg PO BID [facility] Last Admin: 05/17/19 08:01 Dose: 75 mg Simvastatin (Zocor) 40 mg PO BEDTIME [facility] Last Admin: 05/16/19 20:55 Dose: 40 mg Sodium Chloride (Saline Flush) 10 ml FLUSH ASDIRECTED PRN PRN Reason: Keep Vein Open Zolpidem Tartrate (Ambien) 5 mg PO BEDTIME PRN PRN Reason: Sleep Last Admin: 05/16/19 21:04 Dose: 5 mg Discontinued Medications Acetaminophen (Tylenol) 650 mg PO NOW ONE Stop: 05/15/19 22:19 Last Admin: 05/15/19 22:25 Dose: 650 mg Sodium Chloride (Normal Saline) 1,000 mls @ 200 mls/hr IV .BOLUS ONE Stop: 05/16/19 03:13 Last Admin: 05/15/19 22:25 Dose: 200 mls/hr Azithromycin 500 mg/ Sodium (Chloride) 250 mls @ 250 mls/hr IV ONETIME ONE Stop: 05/16/19 00:20 Last Admin: 05/16/19 00:17 Dose: 250 mls/hr Ceftriaxone Sodium 1 gm/ (Sodium Chloride) 50 mls @ 100 mls/hr IV ONETIME ONE Stop: 05/15/19 23:50 Last Admin: 05/15/19 23:37 Dose: 100 mls/hr Ceftriaxone Sodium 1 gm/ (Sodium Chloride) 50 mls @ 100 mls/hr IV Q24H [facility] Azithromycin 500 mg/ Sodium (Chloride) 250 mls @ 250 mls/hr IV Q24H [facility] Sodium Chloride (Normal Saline) 1,000 mls @ 999 mls/hr IV ASDIRECTED [facility] Stop: 05/16/19 11:16 Last Admin: 05/16/19 10:35 Dose: 999 mls/hr Vancomycin HCl 1 gm/ Premix 200 mls @ 133.333 mls/hr IV Q48H [facility] Last Admin: 05/16/19 12:05 Dose: 133.333 mls/hr Nystatin (Nystatin Ointment) 0 gm TOP TID [facility] Last Admin: 05/17/19 08:02 Dose: 1 applicful - Exam Quality Assessment: Supplemental Oxygen, DVT Prophylaxis General: Alert, Oriented HEENT: Pupils Equal, Pupils Reactive, EOMI, Mucous Membr. Moist/Bedias Neck: Supple Lungs: Clear to Auscultation, Normal Respiratory Effort Cardiovascular: Regular Rate, Regular Rhythm GI/Abdominal Exam: Normal Bowel Sounds, Soft, Non-Tender, No Organomegaly, No Distention, No Abnormal Bruit, No Mass, Pelvis Stable (Female) Exam: Normal External Exam, Normal Speculum Exam, Normal Bimanual Exam Back Exam: Normal Inspection, Full Range of Motion Extremities: Normal Inspection, Normal Range of Motion, Non-Tender, No Pedal Edema, Normal Capillary Refill Skin: Warm, Dry, Intact Wound/Incisions: Healing Well Neurological: No New Focal Deficit Psy/Mental Status: Alert, Normal Affect, Normal Mood Sepsis Event Note - Evaluation Sepsis Screening Result: Severe Sepsis Risk - Focused Exam Vital Signs: Vital Signs Temp Pulse Pulse Resp BP BP Pulse Ox 05/17/19 08:01 96 142/61 H 05/17/19 07:45 05/17/19 07:27 100.7 F H 96 24 H 142/61 H 93 L 05/17/19 04:00 100.3 F 79 20 152/54 H 92 L 05/17/19 00:27 100.1 F 89 20 160/64 H 91 L Pulse Ox 05/17/19 08:01 05/17/19 07:45 93 L 05/17/19 07:27 05/17/19 04:00 05/17/19 00:27 Date Exam was Performed: 05/17/19 Time Exam was Performed: 11:54 - Problem List Review Problem List Initiated/Reviewed/Updated: Yes - My Orders Last 24 Hours: My Active Orders 05/16/19 10:45 Piperacillin/Tazobactam [Zosyn] 2.25 gm Sodium Chloride 0.9% [Normal Saline] 50 ml IV Q8HR 05/16/19 11:00 Sodium Chloride 0.9% [Normal Saline] 1,000 ml IV ASDIRECTED 05/17/19 09:09 PROCALCITONIN [REF] Routine 05/17/19 09:30 Nystatin [Nystop] 0 gm TOP TID 05/17/19 12:03 BMP [BASIC METABOLIC PANEL,BMP] [CHEM] Q8H 05/17/19 20:03 BMP [BASIC METABOLIC PANEL,BMP] [CHEM] Q8H 05/18/19 04:03 BMP [BASIC METABOLIC PANEL,BMP] [CHEM] Q8H 05/18/19 07:00 CBC W/O DIFF,HEMOGRAM [HEME] DAILY MAGNESIUM [CHEM] DAILY PHOSPHORUS [CHEM] DAILY 05/19/19 07:00 CBC W/O DIFF,HEMOGRAM [HEME] DAILY MAGNESIUM [CHEM] DAILY PHOSPHORUS [CHEM] DAILY 05/20/19 07:00 CBC W/O DIFF,HEMOGRAM [HEME] DAILY MAGNESIUM [CHEM] DAILY PHOSPHORUS [CHEM] DAILY 05/21/19 07:00 CBC W/O DIFF,HEMOGRAM [HEME] DAILY MAGNESIUM [CHEM] DAILY PHOSPHORUS [CHEM] DAILY 05/22/19 07:00 CBC W/O DIFF,HEMOGRAM [HEME] DAILY MAGNESIUM [CHEM] DAILY PHOSPHORUS [CHEM] DAILY 05/23/19 07:00 CBC W/O DIFF,HEMOGRAM [HEME] DAILY PHOSPHORUS [CHEM] DAILY 05/24/19 07:00 CBC W/O DIFF,HEMOGRAM [HEME] DAILY PHOSPHORUS [CHEM] DAILY - Plan Plan:: 73-year-old with a history of diabetes, coronary artery disease, hypertension. Presented with cough, fever, chills. Noted to have fever, leukocytosis. Chest x- ray negative for pneumonia. Sepsis with shock. Etiology not clear Resolving BP now improved Cultures in process Procalcitonin severely elevated. Repeat Continue IV Zosyn. 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 Now on 1 L Upper respiratory tract infection/Acute bronchitis Sputum culture, blood culture in process COVID-19 test in process Continue droplet and contact isolation Continue supportive care Probable Urinary tract infection Follow up urine culture Continue Zosyn Hypertension BP now within acceptable limits Continue metoprolol, ARB Continue to monitor BP Coronary artery disease Status post CABG Continue aspirin, metoprolol, ARB Diabetes Continue Actos, long-acting insulin Supplement insulin and hypoglycemia treatment as needed History of anxiety Continue benzodiazepines Physical deconditioning PT/OT DVT prophylaxis with subcutaneous heparin
[2019-05-17] MEDS: ClonazePAM 0.5 MG Tab PO PRN ×2 (12:18→21:21)
[2019-05-17 12:19] LABS: ANION GAP 13.5 mEq/L (7-13)
[2019-05-17] MEDS: Ondansetron 4 MG Tab.DIS PO PRN (16:51)
[2019-05-17] MEDS: Insulin Glarg,Human.Rec.Analog 100 Unit/ML SUBCUT SCH (21:18)
[2019-05-17] MEDS: Simvastatin 40 MG Tab PO SCH (21:21)
[2019-05-17] MEDS: Sodium Chloride 0.9% 10 ML Syringe FLUSH PRN (22:20)
[2019-05-18] MEDS: Piperacillin/Tazobactam 2.25 GM in Sodium Chloride 0.9% 50 ML IV SCH ×3 (05:37→22:12)
[2019-05-18] MEDS: Sodium Chloride 0.9% 10 ML Syringe FLUSH PRN ×3 (05:38→22:11)
[2019-05-18] MEDS: Heparin Sodium 5,000 Units/ML Vial SUBCUT SCH ×3 (05:42→21:16)
[2019-05-18 07:10] LABS: ANION GAP 15.2 mEq/L (7-13)
[2019-05-18] MEDS: Losartan 50 MG Tab PO SCH (08:38)
[2019-05-18] MEDS: Aspirin 325 MG Tab.EC PO SCH (08:40)
[2019-05-18] MEDS: FENOFIBRATE NANOCRYSTALLIZED PO SCH (08:40)
[2019-05-18] MEDS: Pregabalin 75 MG Cap PO SCH ×2 (08:41→21:05)
[2019-05-18] MEDS: Nystatin Topical Powder 30 GM Bottle TOP SCH ×3 (08:41→21:06)
[2019-05-18] MEDS: Metoprolol Succinate 25 MG Tab.ER PO SCH (08:42)
[2019-05-18] MEDS: Levothyroxine 100 MCG Tab PO SCH (08:42)
[2019-05-18] MEDS: Cholecalciferol (Vitamin D3) 25 MCG Tab PO SCH (08:43)
[2019-05-18] MEDS: Multivitamins, Therapeutic with Minerals Tab PO SCH (08:43)
[2019-05-18] MEDS: Insulin Lispro 100 Units/ML 3 ML Vial SUBCUT SCH ×4 (08:44→21:03)
[2019-05-18] MEDS: ClonazePAM 0.5 MG Tab PO PRN ×2 (09:06→21:16)
[2019-05-18] MEDS: Sodium Polystyrene Sulfonate 15 GM/60 ML Susp 60 ML Bot PO SCH ×3 (10:31→18:29)
--- NOTE | 2019-05-18 11:05 | PCM.PN ---
- General Info Date of Service: 05/18/19 Admission Dx/Problem (Free Text): Admission Diagnosis/Problem Admission Diagnosis/Problem Sepsis Subjective Update: 73-year-old with a history of diabetes, coronary artery disease, hypertension who presented with cough, fever, chills, stuffy nose. She was admitted for sepsis probably due to UTI. She was started on IV ceftriaxone and Azithromycin. She is also being screened for COVID-19. She denied sick contact, recent travel. This morning patient was seen and examined. She is doing ok. No new complaints. COVID-19 test was negative. She denies fever, chills, nausea, vomiting. No abdominal pain. No shortness of breath or cough. Vitals stable. Labs showed mild hyperkalemia. Requested for Kayexalate. Functional Status: Reports: Pain Controlled - Review of Systems General: Reports: No Symptoms HEENT: Reports: No Symptoms Pulmonary: Reports: No Symptoms Cardiovascular: Reports: No Symptoms Gastrointestinal: Reports: No Symptoms Genitourinary: Reports: No Symptoms Musculoskeletal: Reports: No Symptoms Skin: Reports: No Symptoms Neurological: Reports: No Symptoms Psychiatric: Reports: No Symptoms - Patient Data Vitals - Most Recent: Last Vital Signs Temp 99.3 F 05/18/19 07:44 Pulse 89 05/18/19 08:42 Resp 23 H 05/18/19 07:44 BP 136/82 05/18/19 08:42 Pulse Ox 91 L 05/18/19 07:44 Weight - Most Recent: 178 lb 2 oz I&O - Last 24 Hours: Intake & Output 05/17/19 05/18/19 05/18/19 22:59 06:59 14:59 Intake Total 53 292 300 Output Total 200 Balance -147 292 300 Lab Results Last 24 Hours: Laboratory Results - last 24 hr 05/16/19 05/17/19 05/17/19 Range/Units 08:00 11:58 11:58 WBC (5.0-10.0) 10^3/uL RBC (4.2-5.4) 10^6/uL Hgb (12.0-16.0) g/dL Hct (37.0-47.0) % MCV (80-100) fL MCH (27.0-34.0) pg MCHC (33.0-35.0) g/dL Plt Count (150-450) 10^3/uL Sodium 139 (136-145) mmol/L Potassium 4.5 (3.5-5.1) mmol/L Chloride 107 (98-107) mmol/L Carbon Dioxide 23 (21-32) mmol/L Anion Gap 13.5 H (7-13) mEq/L BUN 32 H (7-18) mg/dL Creatinine 2.75 H (0.55-1.02) mg/dL Est Cr Clr Drug Dosing 14.41 mL/min Estimated GFR (MDRD) 17 Glucose 237 H (74-99) mg/dL POC Glucose 139 H (83-110) mg/dl Calcium 7.2 L (8.5-10.1) mg/dL Phosphorus (2.6-4.7) mg/dL Magnesium (1.8-2.4) mg/dL Procalcitonin 15.47 H (<0.10) ng/mL 05/17/19 05/17/19 05/17/19 Range/Units 12:15 16:30 21:01 WBC (5.0-10.0) 10^3/uL RBC (4.2-5.4) 10^6/uL Hgb (12.0-16.0) g/dL Hct (37.0-47.0) % MCV (80-100) fL MCH (27.0-34.0) pg MCHC (33.0-35.0) g/dL Plt Count (150-450) 10^3/uL Sodium (136-145) mmol/L Potassium (3.5-5.1) mmol/L Chloride (98-107) mmol/L Carbon Dioxide (21-32) mmol/L Anion Gap (7-13) mEq/L BUN (7-18) mg/dL Creatinine (0.55-1.02) mg/dL Est Cr Clr Drug Dosing mL/min Estimated GFR (MDRD) Glucose (74-99) mg/dL POC Glucose 240 H 209 H 190 H (83-110) mg/dl Calcium (8.5-10.1) mg/dL Phosphorus (2.6-4.7) mg/dL Magnesium (1.8-2.4) mg/dL Procalcitonin (<0.10) ng/mL 05/18/19 05/18/19 05/18/19 Range/Units 06:10 06:10 06:10 WBC 9.9 (5.0-10.0) 10^3/uL RBC 3.60 L (4.2-5.4) 10^6/uL Hgb 11.1 L (12.0-16.0) g/dL Hct 34.5 L (37.0-47.0) % MCV 95.8 (80-100) fL MCH 30.8 (27.0-34.0) pg MCHC 32.2 L (33.0-35.0) g/dL Plt Count 190 (150-450) 10^3/uL Sodium 142 (136-145) mmol/L Potassium 5.2 H (3.5-5.1) mmol/L Chloride 108 H (98-107) mmol/L Carbon Dioxide 24 (21-32) mmol/L Anion Gap 15.2 H (7-13) mEq/L BUN 29 H (7-18) mg/dL Creatinine 2.51 H (0.55-1.02) mg/dL Est Cr Clr Drug Dosing 15.79 mL/min Estimated GFR (MDRD) 19 Glucose 97 (74-99) mg/dL POC Glucose (83-110) mg/dl Calcium 7.7 L (8.5-10.1) mg/dL Phosphorus 2.9 (2.6-4.7) mg/dL Magnesium 2.0 (1.8-2.4) mg/dL Procalcitonin (<0.10) ng/mL 05/18/19 Range/Units 07:55 WBC (5.0-10.0) 10^3/uL RBC (4.2-5.4) 10^6/uL Hgb (12.0-16.0) g/dL Hct (37.0-47.0) % MCV (80-100) fL MCH (27.0-34.0) pg MCHC (33.0-35.0) g/dL Plt Count (150-450) 10^3/uL Sodium (136-145) mmol/L Potassium (3.5-5.1) mmol/L Chloride (98-107) mmol/L Carbon Dioxide (21-32) mmol/L Anion Gap (7-13) mEq/L BUN (7-18) mg/dL Creatinine (0.55-1.02) mg/dL Est Cr Clr Drug Dosing mL/min Estimated GFR (MDRD) Glucose (74-99) mg/dL POC Glucose 103 (83-110) mg/dl Calcium (8.5-10.1) mg/dL Phosphorus (2.6-4.7) mg/dL Magnesium (1.8-2.4) mg/dL Procalcitonin (<0.10) ng/mL Scott Results Last 24 Hours: Microbiology 05/15/19 22:50 Coronavirus RNA (PCR) - Final Nasopharyngeal Swab 05/15/19 22:53 Aerobic Blood Culture - Preliminary Blood - Venous - Lab Draw NO GROWTH AFTER 2 DAYS Anaerobic Blood Culture - Final Escherichia Coli 05/15/19 23:03 Urine Culture - Final Urine, Quick Cath (In-Out) Escherichia Coli Escherichia Coli#2 05/15/19 22:24 Aerobic Blood Culture - Preliminary Blood - Venous NO GROWTH AFTER 2 DAYS Anaerobic Blood Culture - Preliminary NO GROWTH AFTER 2 DAYS Med Orders - Current: Current Medications Acetaminophen (Tylenol) 650 mg PO Q4H PRN PRN Reason: Fever Last Admin: 05/17/19 21:22 Dose: 650 mg Aspirin (Ecotrin) 325 mg PO DAILY [facility] Last Admin: 05/18/19 08:40 Dose: 325 mg Cholecalciferol (Vitamin D3) 25 mcg PO DAILY [facility] Last Admin: 05/18/19 08:43 Dose: 25 mcg Clonazepam (Klonopin) 1 mg PO BID PRN PRN Reason: Anxiety Last Admin: 05/18/19 09:06 Dose: 1 mg Docusate Sodium (Colace) 100 mg PO BID PRN PRN Reason: Constipation Heparin Sodium (Porcine) (Heparin Sodium) 5,000 units SUBCUT Q8HR [facility] Last Admin: 05/18/19 05:42 Dose: 5,000 units Piperacillin Sod/Tazobactam (Sod 2.25 gm/ Sodium Chloride) 50 mls @ 100 mls/hr IV Q8HR [facility] Last Admin: 05/18/19 05:37 Dose: 100 mls/hr Insulin Glargine (Lantus) 20 unit SUBCUT BEDTIME [facility] Last Admin: 05/17/19 21:18 Dose: 20 units Insulin Human Lispro (Humalog) 0 unit SUBCUT ACBED [facility]; Protocol Last Admin: 05/18/19 08:44 Dose: Not Given Levothyroxine Sodium (Synthroid) 100 mcg PO DAILY [facility] Last Admin: 05/18/19 08:42 Dose: 100 mcg Magnesium Oxide (Magnesium Oxide) 250 mg PO DAILY [facility] Last Admin: 05/18/19 08:41 Dose: 250 mg Metoprolol Succinate (Toprol Xl) 25 mg PO DAILY [facility] Last Admin: 05/18/19 08:42 Dose: 25 mg Multivitamins/Minerals (Vitamins And Minerals) 1 tab PO DAILY [facility] Last Admin: 05/18/19 08:43 Dose: 1 tab Fenofibrate Nanocrystallized [ Tricor] 135 Mg Pt Own Med 135 mg PO DAILY [facility] Last Admin: 05/18/19 08:40 Dose: 135 mg Nystatin (Nystop) 0 gm TOP TID [facility] Last Admin: 05/18/19 08:41 Dose: 1 applic Ondansetron HCl (Zofran Odt) 4 mg PO Q6H PRN PRN Reason: nausea, able to take PO Last Admin: 05/17/19 16:51 Dose: 4 mg Oxycodone HCl (Oxycodone) 5 mg PO Q4H PRN PRN Reason: Pain (moderate 4-6) Pioglitazone HCl (Actos) 15 mg PO DAILY [facility] Last Admin: 05/18/19 08:38 Dose: 15 mg Pregabalin (Lyrica) 75 mg PO BID [facility] Last Admin: 05/18/19 08:41 Dose: 75 mg Simvastatin (Zocor) 40 mg PO BEDTIME [facility] Last Admin: 05/17/19 21:21 Dose: 40 mg Sodium Chloride (Saline Flush) 10 ml FLUSH ASDIRECTED PRN PRN Reason: Keep Vein Open Last Admin: 05/18/19 06:14 Dose: 10 ml Sodium Polystyrene Sulfonate (Kayexalate) 30 gm PO Q6H [facility] Stop: 05/18/19 16:31 Last Admin: 05/18/19 10:31 Dose: 30 gm Zolpidem Tartrate (Ambien) 5 mg PO BEDTIME PRN PRN Reason: Sleep Last Admin: 05/16/19 21:04 Dose: 5 mg Discontinued Medications Acetaminophen (Tylenol) 650 mg PO NOW ONE Stop: 05/15/19 22:19 Last Admin: 05/15/19 22:25 Dose: 650 mg Sodium Chloride (Normal Saline) 1,000 mls @ 200 mls/hr IV .BOLUS ONE Stop: 05/16/19 03:13 Last Admin: 05/15/19 22:25 Dose: 200 mls/hr Azithromycin 500 mg/ Sodium (Chloride) 250 mls @ 250 mls/hr IV ONETIME ONE Stop: 05/16/19 00:20 Last Admin: 05/16/19 00:17 Dose: 250 mls/hr Ceftriaxone Sodium 1 gm/ (Sodium Chloride) 50 mls @ 100 mls/hr IV ONETIME ONE Stop: 05/15/19 23:50 Last Admin: 05/15/19 23:37 Dose: 100 mls/hr Ceftriaxone Sodium 1 gm/ (Sodium Chloride) 50 mls @ 100 mls/hr IV Q24H [facility] Azithromycin 500 mg/ Sodium (Chloride) 250 mls @ 250 mls/hr IV Q24H [facility] Sodium Chloride (Normal Saline) 1,000 mls @ 100 mls/hr IV ASDIRECTED [facility] Last Admin: 05/17/19 06:00 Dose: 100 mls/hr Sodium Chloride (Normal Saline) 1,000 mls @ 999 mls/hr IV ASDIRECTED [facility] Stop: 05/16/19 11:16 Last Admin: 05/16/19 10:35 Dose: 999 mls/hr Vancomycin HCl 1 gm/ Premix 200 mls @ 133.333 mls/hr IV Q48H [facility] Last Admin: 05/16/19 12:05 Dose: 133.333 mls/hr Sodium Chloride (Normal Saline) 1,000 mls @ 100 mls/hr IV ASDIRECTED [facility] Losartan Potassium (Cozaar) 50 mg PO DAILY [facility] Last Admin: 05/18/19 08:38 Dose: 50 mg Nystatin (Nystatin Ointment) 0 gm TOP TID [facility] Last Admin: 05/17/19 08:02 Dose: 1 applicful - Exam Quality Assessment: DVT Prophylaxis General: Alert, Oriented HEENT: Pupils Equal, Pupils Reactive, EOMI, Mucous Membr. Moist/[place] Neck: Supple Lungs: Clear to Auscultation, Normal Respiratory Effort Cardiovascular: Regular Rate, Regular Rhythm GI/Abdominal Exam: Normal Bowel Sounds, Soft, Non-Tender, No Organomegaly, No Distention, No Abnormal Bruit, No Mass, Pelvis Stable (Female) Exam: Normal External Exam, Normal Speculum Exam, Normal Bimanual Exam Back Exam: Normal Inspection, Full Range of Motion Extremities: Normal Inspection, Normal Range of Motion, Non-Tender, No Pedal Edema, Normal Capillary Refill Skin: Warm, Dry, Intact Wound/Incisions: Healing Well Neurological: No New Focal Deficit Psy/Mental Status: Alert, Normal Affect, Normal Mood Sepsis Event Note - Evaluation Sepsis Screening Result: No Definite Risk - Focused Exam Vital Signs: Vital Signs Temp Pulse Pulse Resp BP BP BP 05/18/19 08:42 89 136/82 05/18/19 08:38 136/82 05/18/19 07:44 99.3 F 89 23 H 136/82 05/18/19 04:00 99.4 F 89 20 156/75 H 05/18/19 00:00 98.5 F 77 24 H 115/37 L Pulse Ox 05/18/19 08:42 05/18/19 08:38 05/18/19 07:44 91 L 05/18/19 04:00 94 L 05/18/19 00:00 92 L Date Exam was Performed: 05/18/19 Time Exam was Performed: 10:56 - Problem List & Annotations (1) Hyperkalemia SNOMED Code(s): 41161410 Code(s): E87.5 - HYPERKALEMIA Status: Acute Current Visit: Yes - Problem List Review Problem List Initiated/Reviewed/Updated: Yes - My Orders Last 24 Hours: My Active Orders 05/17/19 19:26 Consult to Case Management/Egg Buyer [CONS] Routine 05/18/19 06:10 PROCALCITONIN [REF] DAILY 05/18/19 09:00 [facility] [US] Routine 05/18/19 10:30 Sodium Polystyrene Sulfonate [Kayexalate] 30 gm PO Q6H 05/19/19 07:00 CBC W/O DIFF,HEMOGRAM [HEME] DAILY MAGNESIUM [CHEM] DAILY PHOSPHORUS [CHEM] DAILY 05/20/19 07:00 CBC W/O DIFF,HEMOGRAM [HEME] DAILY MAGNESIUM [CHEM] DAILY PHOSPHORUS [CHEM] DAILY 05/21/19 07:00 CBC W/O DIFF,HEMOGRAM [HEME] DAILY MAGNESIUM [CHEM] DAILY PHOSPHORUS [CHEM] DAILY 05/22/19 07:00 CBC W/O DIFF,HEMOGRAM [HEME] DAILY MAGNESIUM [CHEM] DAILY PHOSPHORUS [CHEM] DAILY 05/23/19 07:00 CBC W/O DIFF,HEMOGRAM [HEME] DAILY PHOSPHORUS [CHEM] DAILY 05/24/19 07:00 CBC W/O DIFF,HEMOGRAM [HEME] DAILY PHOSPHORUS [CHEM] DAILY - Plan Plan:: 73-year-old with a history of diabetes, coronary artery disease, hypertension. Presented with cough, fever, chills. Noted to have fever, leukocytosis. Chest x- ray negative for pneumonia. Urine cx was positive for E. Coli. Sepsis with shock due to E. coli UTI Resolving BP now improved Procalcitonin severely elevated but trending down Continue IV Zosyn Continue IVF E.Coli UTI Urine culture positive for E. Coli Continue Zosyn KATELYN on CKD IV. 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 Renal US pending BMP daily Avoid nephrotoxic agents Acute respiratory failure with hypoxemia Improved. Now on RA Admission oxygen saturation was around 80% on room air Upper respiratory tract infection/Acute bronchitis. Improved Sputum culture, blood culture in process COVID-19 test negative D/c droplet and contact isolation Hypertension BP now within acceptable limits Continue metoprolol Continue to monitor BP Coronary artery disease Status post CABG Continue aspirin, metoprolol, ARB Diabetes Continue Actos, long-acting insulin Supplement insulin and hypoglycemia treatment as needed History of anxiety Continue benzodiazepines Physical deconditioning PT/OT DVT prophylaxis with subcutaneous heparin
[2019-05-18] MEDS ORDERED: Nicotine 21 MG/24 Hr Patch TRDERM SCH (11:09)
--- NOTE | 2019-05-18 13:47 | US ---
EXAMINATION: [facility] SEX: Female AGE: 73 years CLINICAL HISTORY: 73-year-old hypertensive, diabetic female smoker with stage III chronic kidney disease, abdominal aortic aneurysm, and now acute kidney injury. (KATELYN on CKD). INTERPRETATION: 1. Normal reniform size, axis and configuration bilaterally with relatively smooth cortical surface. No perinephric capsular fluid. 2. Right kidney measures 10.6 cm L x 4.9 cm W x 4.7 cm AP diameter. (Isolated tiny 9 x 7 mm hypoechoic cortical cyst lower pole right kidney) No other cystic or solid renal cortical mass lesion, nephrolithiasis or signs of obstructive uropathy on right. 3. Left kidney measures 9.7 cm L x 4.8 cm W x 5.18 cm AP diameter. No cystic or solid renal cortical mass lesion, nephrolithiasis or signs of obstructive uropathy left kidney. 4. No bladder images provided.
[2019-05-18] MEDS: Nicotine 21 MG/24 Hr Patch TRDERM SCH (14:41)
[2019-05-18] MEDS ORDERED: CHECK TRDERM SCH (21:00)
[2019-05-18] MEDS: Insulin Glarg,Human.Rec.Analog 100 Unit/ML SUBCUT SCH (21:02)
[2019-05-18] MEDS: Simvastatin 40 MG Tab PO SCH (21:05)
[2019-05-19] MEDS: Acetaminophen 325 MG Tab PO PRN (02:00)
[2019-05-19] MEDS: Sodium Chloride 0.9% 10 ML Syringe FLUSH PRN ×2 (05:22→09:32)
[2019-05-19] MEDS: Piperacillin/Tazobactam 2.25 GM in Sodium Chloride 0.9% 50 ML IV SCH (05:23)
[2019-05-19] MEDS: Heparin Sodium 5,000 Units/ML Vial SUBCUT SCH (05:27)
[2019-05-19] MEDS: Insulin Lispro 100 Units/ML 3 ML Vial SUBCUT SCH (08:10)
[2019-05-19 08:13] VITALS: BP 116/41; PULSE 74
[2019-05-19] MEDS: ClonazePAM 0.5 MG Tab PO PRN (09:26)
[2019-05-19] MEDS: Metoprolol Succinate 25 MG Tab.ER PO SCH (09:26)
[2019-05-19] MEDS: Levothyroxine 100 MCG Tab PO SCH (09:27)
[2019-05-19] MEDS: Aspirin 325 MG Tab.EC PO SCH (09:27)
[2019-05-19] MEDS: Multivitamins, Therapeutic with Minerals Tab PO SCH (09:27)
[2019-05-19] MEDS: Pregabalin 75 MG Cap PO SCH (09:28)
[2019-05-19] MEDS: Cholecalciferol (Vitamin D3) 25 MCG Tab PO SCH (09:28)
[2019-05-19] MEDS: FENOFIBRATE NANOCRYSTALLIZED PO SCH (09:28)
[2019-05-19] MEDS: Nicotine 21 MG/24 Hr Patch TRDERM SCH (09:28)
[2019-05-19] MEDS: Nystatin Topical Powder 30 GM Bottle TOP SCH ×2 (09:29→10:26)
[2019-05-19 09:54] LABS: ANION GAP 13.4 mEq/L (7-13)
--- NOTE | 2019-05-19 11:14 | PCM.DCSUM1 ---
Discharge Summary - Hospital Course Free Text/Narrative:: 73-year-old with a history of diabetes, coronary artery disease, hypertension who presented with cough, fever, chills, stuffy nose. She was admitted for sepsis probably due to UTI. She was started on IV abx. She was screened for coronavirus COVID-19 PCR that was negative. Urine culture was positive for E.coli. She responded to IV abx. Her symptoms improved. She also developed KATELYN on CKD III. Renal US was negative for hydronephrosis. She was discharged in stable condition with plan to follow up with PCP and nephrology. Diagnosis: Stroke: No - Discharge Data Discharge Date: 05/19/19 Discharge Disposition: Home, Self-Care 01 Condition: Stable - Referral to Home Health Primary Care Physician: PCP Unobtainable - Discharge Diagnosis/Problem(s) (1) Hyperkalemia SNOMED Code(s): 81804404 ICD Code: E87.5 - HYPERKALEMIA Status: Acute Current Visit: Yes - Patient Summary/Data Consults: Consultations 05/17/19 19:26 Consult to Case Management/Teaching Specialists [CONS] Routine - Patient Instructions Diet: Heart Healthy Diet Activity: As Tolerated Driving: May Drive Today Showering/Bathing: June Shower Notify Provider of: Fever, Nausea and/or Vomiting - Discharge Plan *PRESCRIPTION DRUG MONITORING PROGRAM REVIEWED*: No *COPY OF PRESCRIPTION DRUG MONITORING REPORT IN PATIENT BEN: No Prescriptions/Med Rec: levoFLOXacin [Levaquin] 750 mg PO Q48H 14 Days #7 tab Nystatin [Nystop] 1 gm TOP TID #1 bottle Home Medications: Home Meds Metoprolol Tartrate 50 mg PO DAILY 02/02/13 [History] Simvastatin [Zocor] 40 mg PO BEDTIME 02/02/13 [History] Pregabalin [Lyrica] 75 mg PO BID 11/26/13 [History] Aspirin [Ecotrin] 325 mg PO DAILY 04/16/16 [History] Levothyroxine Sodium [Synthroid] 0.125 mcg PO DAILY 04/16/16 [History] Magnesium Oxide 400 mg PO DAILY 04/16/16 [History] clonazePAM [Clonazepam] 1 mg PO BID PRN 04/16/16 [History] Multivitamin with Minerals [Multiple Vitamin] 1 tab PO DAILY 03/11/17 [History] Ondansetron 4 mg PO Q8H PRN 03/11/17 [History] Ergocalciferol (Vitamin D2) [Vitamin D2] 1 tab PO .MONTHLY 12/28/17 [History] Fenofibrate Nanocrystallized [Tricor] 135 mg PO DAILY 12/28/17 [History] Insulin Detemir [Levemir Flextouch] 20 units SQ BEDTIME 12/28/17 [History] Cholecalciferol (Vitamin D3) [Vitamin D3] 2,000 units PO DAILY 03/23/18 [History ] Losartan [Cozaar] 50 mg PO DAILY 03/23/18 [History] Pioglitazone [Actos] 15 mg PO DAILY 03/23/18 [History] Ferrous Sulfate 325 mg PO DAILY 05/16/19 [History] Isosorbide Mononitrate 20 mg PO DAILY 05/16/19 [History] Omeprazole 20 mg PO DAILY 05/16/19 [History] Promethazine [Phenergan] 25 mg PO Q8H PRN 05/16/19 [History] Sertraline HCl 25 mg PO DAILY 05/16/19 [History] predniSONE [Prednisone] 40 mg PO DAILY 05/16/19 [History] Nystatin [Nystop] 1 gm TOP TID #1 bottle 05/19/19 [Rx] levoFLOXacin [Levaquin] 750 mg PO Q48H 14 Days #7 tab 05/19/19 [Rx] Oxygen Therapy Mode: Room Air Referrals: PCP,Unobtain [Primary Care Provider] - - Discharge Summary/Plan Comment DC Time >30 min.: Yes Discharge Summary/Plan Comment: Complete abx Post hospitalization follow up with PCP and Nephrology - General Info Date of Service: 05/19/19 Admission Dx/Problem (Free Text: Admission Diagnosis/Problem Admission Diagnosis/Problem Sepsis Subjective Update: She is doing ok. No new complaints. Mild hyperkalemia resolved Functional Status: Reports: Pain Controlled - Review of Systems General: Reports: No Symptoms HEENT: Reports: No Symptoms Pulmonary: Reports: No Symptoms Cardiovascular: Reports: No Symptoms Gastrointestinal: Reports: No Symptoms Genitourinary: Reports: No Symptoms Musculoskeletal: Reports: No Symptoms Skin: Reports: No Symptoms Neurological: Reports: No Symptoms Psychiatric: Reports: No Symptoms - Patient Data Vitals - Most Recent: Last Vital Signs Temp 97.7 F 05/19/19 08:10 Pulse 74 05/19/19 09:26 Resp 20 05/19/19 08:10 BP 116/41 L 05/19/19 09:26 Pulse Ox 95 05/19/19 08:10 Weight - Most Recent: 178 lb 2 oz I&O - Last 24 hours: Intake & Output 05/18/19 05/19/19 05/19/19 22:59 06:59 14:59 Intake Total 250 350 400 Balance 250 350 400 Lab Results - Last 24 hrs: Laboratory Results - last 24 hr 05/18/19 05/18/19 05/18/19 Range/Units 06:10 11:40 16:35 WBC (5.0-10.0) 10^3/uL RBC (4.2-5.4) 10^6/uL Hgb (12.0-16.0) g/dL Hct (37.0-47.0) % MCV (80-100) fL MCH (27.0-34.0) pg MCHC (33.0-35.0) g/dL Plt Count (150-450) 10^3/uL Sodium (136-145) mmol/L Potassium (3.5-5.1) mmol/L Chloride (98-107) mmol/L Carbon Dioxide (21-32) mmol/L Anion Gap (7-13) mEq/L BUN (7-18) mg/dL Creatinine (0.55-1.02) mg/dL Est Cr Clr Drug Dosing mL/min Estimated GFR (MDRD) Glucose (74-99) mg/dL POC Glucose 131 H 145 H (83-110) mg/dl Calcium (8.5-10.1) mg/dL Phosphorus (2.6-4.7) mg/dL Magnesium (1.8-2.4) mg/dL Procalcitonin 12.24 H (<0.10) ng/mL 05/18/19 05/19/19 05/19/19 Range/Units 20:44 06:10 06:10 WBC 5.1 (5.0-10.0) 10^3/uL RBC 3.41 L (4.2-5.4) 10^6/uL Hgb 10.4 L (12.0-16.0) g/dL Hct 32.7 L (37.0-47.0) % MCV 95.9 (80-100) fL MCH 30.5 (27.0-34.0) pg MCHC 31.8 L (33.0-35.0) g/dL Plt Count 193 (150-450) 10^3/uL Sodium (136-145) mmol/L Potassium (3.5-5.1) mmol/L Chloride (98-107) mmol/L Carbon Dioxide (21-32) mmol/L Anion Gap (7-13) mEq/L BUN (7-18) mg/dL Creatinine (0.55-1.02) mg/dL Est Cr Clr Drug Dosing mL/min Estimated GFR (MDRD) Glucose (74-99) mg/dL POC Glucose 198 H (83-110) mg/dl Calcium (8.5-10.1) mg/dL Phosphorus 2.7 (2.6-4.7) mg/dL Magnesium 1.9 (1.8-2.4) mg/dL Procalcitonin (<0.10) ng/mL 05/19/19 05/19/19 Range/Units 06:10 07:52 WBC (5.0-10.0) 10^3/uL RBC (4.2-5.4) 10^6/uL Hgb (12.0-16.0) g/dL Hct (37.0-47.0) % MCV (80-100) fL MCH (27.0-34.0) pg MCHC (33.0-35.0) g/dL Plt Count (150-450) 10^3/uL Sodium 144 (136-145) mmol/L Potassium 4.4 (3.5-5.1) mmol/L Chloride 108 H (98-107) mmol/L Carbon Dioxide 27 (21-32) mmol/L Anion Gap 13.4 H (7-13) mEq/L BUN 26 H (7-18) mg/dL Creatinine 2.36 H (0.55-1.02) mg/dL Est Cr Clr Drug Dosing 16.79 mL/min Estimated GFR (MDRD) 20 Glucose 88 (74-99) mg/dL POC Glucose 89 (83-110) mg/dl Calcium 7.4 L (8.5-10.1) mg/dL Phosphorus (2.6-4.7) mg/dL Magnesium (1.8-2.4) mg/dL Procalcitonin (<0.10) ng/mL [facility] Results - Last 24 hrs: Microbiology 05/15/19 22:53 Aerobic Blood Culture - Preliminary Blood - Venous - Lab Draw NO GROWTH AFTER 3 DAYS Anaerobic Blood Culture - Final Escherichia Coli 05/15/19 22:24 Aerobic Blood Culture - Preliminary Blood - Venous NO GROWTH AFTER 3 DAYS Anaerobic Blood Culture - Preliminary NO GROWTH AFTER 3 DAYS 05/15/19 22:50 Coronavirus RNA (PCR) - Final Nasopharyngeal Swab 05/15/19 23:03 Urine Culture - Final Urine, Quick Cath (In-Out) Escherichia Coli Escherichia Coli#2 Med Orders - Current: Current Medications Acetaminophen (Tylenol) 650 mg PO Q4H PRN PRN Reason: Fever Last Admin: 05/19/19 02:00 Dose: 650 mg Aspirin (Ecotrin) 325 mg PO DAILY [facility] Last Admin: 05/19/19 09:27 Dose: 325 mg Cholecalciferol (Vitamin D3) 25 mcg PO DAILY [facility] Last Admin: 05/19/19 09:28 Dose: 25 mcg Clonazepam (Klonopin) 1 mg PO BID PRN PRN Reason: Anxiety Last Admin: 05/19/19 09:26 Dose: 1 mg Docusate Sodium (Colace) 100 mg PO BID PRN PRN Reason: Constipation Heparin Sodium (Porcine) (Heparin Sodium) 5,000 units SUBCUT Q8HR [facility] Last Admin: 05/19/19 05:27 Dose: 5,000 units Piperacillin Sod/Tazobactam (Sod 2.25 gm/ Sodium Chloride) 50 mls @ 100 mls/hr IV Q8HR [facility] Last Infusion: 05/19/19 06:01 Dose: Infused Insulin Glargine (Lantus) 20 unit SUBCUT BEDTIME [facility] Last Admin: 05/18/19 21:02 Dose: 20 units Insulin Human Lispro (Humalog) 0 unit SUBCUT ACBED [facility]; Protocol Last Admin: 05/19/19 08:10 Dose: Not Given Levothyroxine Sodium (Synthroid) 100 mcg PO DAILY [facility] Last Admin: 05/19/19 09:27 Dose: 100 mcg Magnesium Oxide (Magnesium Oxide) 250 mg PO DAILY [facility] Last Admin: 05/19/19 09:26 Dose: 250 mg Metoprolol Succinate (Toprol Xl) 25 mg PO DAILY [facility] Last Admin: 05/19/19 09:26 Dose: 25 mg Miscellaneous Information (Check Patch) 1 ea TRDERM BEDTIME [facility] Last Admin: 05/18/19 21:05 Dose: 1 ea Multivitamins/Minerals (Vitamins And Minerals) 1 tab PO DAILY [facility] Last Admin: 05/19/19 09:27 Dose: 1 tab Nicotine (Habitrol) 21 mg TRDERM DAILY [facility] Last Admin: 05/19/19 09:28 Dose: 21 mg Fenofibrate Nanocrystallized [ Tricor] 135 Mg Pt Own Med 135 mg PO DAILY [facility] Last Admin: 05/19/19 09:28 Dose: 135 mg Nystatin (Nystop) 0 gm TOP TID [facility] Last Admin: 05/19/19 10:26 Dose: Not Given Ondansetron HCl (Zofran Odt) 4 mg PO Q6H PRN PRN Reason: nausea, able to take PO Last Admin: 05/17/19 16:51 Dose: 4 mg Oxycodone HCl (Oxycodone) 5 mg PO Q4H PRN PRN Reason: Pain (moderate 4-6) Pioglitazone HCl (Actos) 15 mg PO DAILY [facility] Last Admin: 05/19/19 09:27 Dose: 15 mg Pregabalin (Lyrica) 75 mg PO BID [facility] Last Admin: 05/19/19 09:28 Dose: 75 mg Simvastatin (Zocor) 40 mg PO BEDTIME [facility] Last Admin: 05/18/19 21:05 Dose: 40 mg Sodium Chloride (Saline Flush) 10 ml FLUSH ASDIRECTED PRN PRN Reason: Keep Vein Open Last Admin: 05/19/19 09:32 Dose: 10 ml Zolpidem Tartrate (Ambien) 5 mg PO BEDTIME PRN PRN Reason: Sleep Last Admin: 05/16/19 21:04 Dose: 5 mg Discontinued Medications Acetaminophen (Tylenol) 650 mg PO NOW ONE Stop: 05/15/19 22:19 Last Admin: 05/15/19 22:25 Dose: 650 mg Sodium Chloride (Normal Saline) 1,000 mls @ 200 mls/hr IV .BOLUS ONE Stop: 05/16/19 03:13 Last Admin: 05/15/19 22:25 Dose: 200 mls/hr Azithromycin 500 mg/ Sodium (Chloride) 250 mls @ 250 mls/hr IV ONETIME ONE Stop: 05/16/19 00:20 Last Admin: 05/16/19 00:17 Dose: 250 mls/hr Ceftriaxone Sodium 1 gm/ (Sodium Chloride) 50 mls @ 100 mls/hr IV ONETIME ONE Stop: 05/15/19 23:50 Last Admin: 05/15/19 23:37 Dose: 100 mls/hr Ceftriaxone Sodium 1 gm/ (Sodium Chloride) 50 mls @ 100 mls/hr IV Q24H [facility] Azithromycin 500 mg/ Sodium (Chloride) 250 mls @ 250 mls/hr IV Q24H [facility] Sodium Chloride (Normal Saline) 1,000 mls @ 100 mls/hr IV ASDIRECTED [facility] Last Admin: 05/17/19 06:00 Dose: 100 mls/hr Sodium Chloride (Normal Saline) 1,000 mls @ 999 mls/hr IV ASDIRECTED [facility] Stop: 05/16/19 11:16 Last Admin: 05/16/19 10:35 Dose: 999 mls/hr Vancomycin HCl 1 gm/ Premix 200 mls @ 133.333 mls/hr IV Q48H [facility] Last Admin: 05/16/19 12:05 Dose: 133.333 mls/hr Sodium Chloride (Normal Saline) 1,000 mls @ 100 mls/hr IV ASDIRECTED [facility] Losartan Potassium (Cozaar) 50 mg PO DAILY [facility] Last Admin: 05/18/19 08:38 Dose: 50 mg Nicotine (Habitrol) 21 mg TRDERM DAILY [facility] Last Admin: 05/18/19 14:57 Dose: Not Given Nystatin (Nystatin Ointment) 0 gm TOP TID [facility] Last Admin: 05/17/19 08:02 Dose: 1 applicful Sodium Polystyrene Sulfonate (Kayexalate) 30 gm PO Q6H [facility] Stop: 05/18/19 16:31 Last Admin: 05/18/19 18:29 Dose: Not Given - Exam General: Reports: Alert, Oriented HEENT: Reports: Pupils Equal, Pupils Reactive, EOMI, Mucous Membr. Moist/[place] Neck: Reports: Supple Lungs: Reports: Clear to Auscultation, Normal Respiratory Effort Cardiovascular: Reports: Regular Rate, Regular Rhythm GI/Abdominal Exam: Normal Bowel Sounds, Soft, Non-Tender, No Organomegaly, No Distention, No Abnormal Bruit, No Mass, Pelvis Stable (Female) Exam: Normal External Exam, Normal Speculum Exam, Normal Bimanual Exam Rectal (Female) Exam: Normal Exam, Normal Rectal Tone Back Exam: Reports: Normal Inspection, Full Range of Motion Extremities: Normal Inspection, Normal Range of Motion, Non-Tender, No Pedal Edema, Normal Capillary Refill Skin: Reports: Warm, Dry, Intact Wound/Incisions: Reports: Healing Well Neurological: Reports: No New Focal Deficit Psy/Mental Status: Reports: Alert, Normal Affect, Normal Mood
== END 2019-05-19 11:40 | disposition home or self-care (01) | DRG 871 ==
LOC: DL.ED 21:51 → UNDOADMIN 23:42 → DL.MS 23:42 → UNDOADMIN 05-17 20:09 → DL.MS 05-17 20:09
PROVIDERS: ADMIT Internal Medicine; ATTEND Student in an Organized Health Care Education/Training Program
DX: A41.9 Sepsis, unspecified organism (principal); A41.51 Sepsis due to Escherichia coli [E. coli]; E03.9 Hypothyroidism, unspecified; H91.90 Unspecified hearing loss, unspecified ear; J96.01 Acute respiratory failure with hypoxia; H54.7 Unspecified visual loss; R65.21 Severe sepsis with septic shock; N39.0 Urinary tract infection, site not specified; N18.9 Chronic kidney disease, unspecified; N18.4 Chronic kidney disease, stage 4 (severe); E78.00 Pure hypercholesterolemia, unspecified; N17.9 Acute kidney failure, unspecified; I12.9 Hypertensive chronic kidney disease with stage 1 through stage 4 chronic kidney disease, or unspecified chronic kidney disease; M19.90 Unspecified osteoarthritis, unspecified site; G89.29 Other chronic pain; M54.9 Dorsalgia, unspecified; F32.9 Major depressive disorder, single episode, unspecified; I25.10 Atherosclerotic heart disease of native coronary artery without angina pectoris; E11.22 Type 2 diabetes mellitus with diabetic chronic kidney disease; E66.9 Obesity, unspecified; Z98.41 Cataract extraction status, right eye; Z95.5 Presence of coronary angioplasty implant and graft; Z90.49 Acquired absence of other specified parts of digestive tract; F17.200 Nicotine dependence, unspecified, uncomplicated; Z88.6 Allergy status to analgesic agent; Z88.5 Allergy status to narcotic agent; Z88.8 Allergy status to other drugs, medicaments and biological substances; H40.9 Unspecified glaucoma; Z79.890 Hormone replacement therapy; Z79.4 Long term (current) use of insulin; Z79.52 Long term (current) use of systemic steroids; J30.9 Allergic rhinitis, unspecified; E78.5 Hyperlipidemia, unspecified; I25.2 Old myocardial infarction; E87.5 Hyperkalemia; K59.09 Other constipation; F17.210 Nicotine dependence, cigarettes, uncomplicated; J06.9 Acute upper respiratory infection, unspecified; F41.9 Anxiety disorder, unspecified; B96.20 Unspecified Escherichia coli [E. coli] as the cause of diseases classified elsewhere; Z95.1 Presence of aortocoronary bypass graft; Z79.82 Long term (current) use of aspirin; Z79.899 Other long term (current) drug therapy; Z20.828 Contact with and (suspected) exposure to other viral communicable diseases; Z11.59 Encounter for screening for other viral diseases
CPT/HCPCS: 36415 ×2; 71045; 80048 ×2; 80053; 81001; 82962 ×5; 83605; 83735; 83880; 84100; 84145; 84484; 85025; 85027; 85610; 87040 ×2; 87077; 87086; 87088 ×2; 87186 ×3; 87804 ×2; 94760; 96361; 96374; 99284; 99285; A9270 ×15; J0696; J1644 ×2; J2543 ×2; J7030 ×2; J7050 ×3; U0002; 76775; 87641; J0456; J1815-GY; J3370; U0001

== ENCOUNTER 2020-10-29 17:10 | Emergency (ER) | payer MEDICARE, OTHER ==
[2020-10-29] MEDS ORDERED: Sodium Chloride 0.9% 10 ML Syringe FLUSH PRN (17:30)
[2020-10-29] MEDS ORDERED: Sodium Chloride 0.9% 1,000 ML IV ONE (17:31)
--- NOTE | 2020-10-29 17:37 | EDM.PDOC ---
<Patricia Reddy - Last Filed: 10/29/20 20:17> ED HPI GENERAL MEDICAL PROBLEM - General Chief Complaint: General Stated Complaint: AMBULANCE Time Seen by Provider: 10/29/20 17:31 - History of Present Illness Onset: Gradual - Related Data Allergies Allergy/AdvReac Type Severity Reaction Status Date / Time amitriptyline [From Elavil] Allergy Cannot Verified 05/16/19 01:35 Remember atenolol Allergy Cannot Verified 05/16/19 01:35 Remember codeine Allergy Nausea and Verified 05/16/19 01:35 Vomiting cyclobenzaprine Allergy Cannot Verified 05/16/19 01:35 [From Flexeril] Remember estradiol [From Estraderm] Allergy Cannot Verified 05/16/19 01:35 Remember ibuprofen [From Motrin] Allergy Stomach Verified 05/16/19 01:35 Upset NSAIDS (Non-Steroidal Allergy Cannot Verified 05/16/19 01:35 Anti-Inflamma Remember propoxyphene HCl Allergy Dizziness Verified 05/16/19 01:35 [From Darvon] trazodone Allergy Cannot Verified 05/16/19 01:35 Remember Home Meds: Home Meds Metoprolol Tartrate 50 mg PO DAILY 02/02/13 [History] Simvastatin [Zocor] 40 mg PO BEDTIME 02/02/13 [History] Pregabalin [Lyrica] 75 mg PO BID 11/26/13 [History] Aspirin [Ecotrin] 325 mg PO DAILY 04/16/16 [History] Levothyroxine Sodium [Synthroid] 0.125 mcg PO DAILY 04/16/16 [History] Magnesium Oxide 400 mg PO DAILY 04/16/16 [History] clonazePAM [Clonazepam] 1 mg PO BID PRN 04/16/16 [History] Multivitamin with Minerals [Multiple Vitamin] 1 tab PO DAILY 03/11/17 [History] Ondansetron 4 mg PO Q8H PRN 03/11/17 [History] Ergocalciferol (Vitamin D2) [Vitamin D2] 1 tab PO .MONTHLY 12/28/17 [History] Fenofibrate Nanocrystallized [Tricor] 135 mg PO DAILY 12/28/17 [History] Insulin Detemir [Levemir Flextouch] 20 units SQ BEDTIME 12/28/17 [History] Cholecalciferol (Vitamin D3) [Vitamin D3] 2,000 units PO DAILY 03/23/18 [History] Losartan [Cozaar] 50 mg PO DAILY 03/23/18 [History] Pioglitazone [Actos] 15 mg PO DAILY 03/23/18 [History] Ferrous Sulfate 325 mg PO DAILY 05/16/19 [History] Isosorbide Mononitrate 20 mg PO DAILY 05/16/19 [History] Omeprazole 20 mg PO DAILY 05/16/19 [History] Promethazine [Phenergan] 25 mg PO Q8H PRN 05/16/19 [History] Sertraline HCl 25 mg PO DAILY 05/16/19 [History] predniSONE [Prednisone] 40 mg PO DAILY 05/16/19 [History] Nystatin [Nystop] 1 gm TOP TID #1 bottle 05/19/19 [Rx] levoFLOXacin [Levaquin] 750 mg PO Q48H 14 Days #7 tab 05/19/19 [Rx] Course - Radiology Interpretation Free Text/Narrative:: Head CT wo contrast: No acute findings See rad report - Re-Assessments/Exams Free Text/Narrative Re-Assessment/Exam: 10/29/20 20:16 Discussed patient case with Dr. Freire in the [facility] ER. She states she would recommend having the patient begin taking her Levothyroxine at the prescribed dose and following up. It was determined when called [facility] that the patient dose have an appointment set up with Dr. Lester Mcneill at [facility] regarding her hypothyroidism on 11/17/2020. Patient states she did take her Levothyroxine this morning. Encouraged patient and son to call her PCP tomorrow. Departure - Departure Time of Disposition: 20:19 Disposition: Home, Self-Care 01 Condition: Good Clinical Impression: Hypothyroidism Qualifiers: Hypothyroidism type: unspecified Qualified Code(s): E03.9 - Hypothyroidism, unspecified - Discharge Information *PRESCRIPTION DRUG MONITORING PROGRAM REVIEWED*: No *COPY OF PRESCRIPTION DRUG MONITORING REPORT IN PATIENT BEN: No Instructions: Hypothyroidism Referrals: PCP,None [Primary Care Provider] - Forms: ED Department Discharge Additional Instructions: Take Levothyroxine as prescribed by your primary care provider Call and talk to your PCP tomorrow Return to the ER with any worsening of symptoms Go to your appointment with Dr. Lester Mcneill on 11/17/2020 in [place]. <Austwell,Johnson C - Last Filed: 10/30/20 07:04> ED HPI GENERAL MEDICAL PROBLEM - General Source of Information: Reports: Patient History Limitations: Reports: No Limitations - History of Present Illness INITIAL COMMENTS - FREE TEXT/NARRATIVE: 74 y/o F c/o numbness to her left cheek and left lower lip since last night. No other complaints. Has not been eating well because she doesnt like to cook for herself. Denies fever, cough, chills, drugs, etoh, cp, db, neck pn, forehead pain, abd pn, extremity pn, toothaches, recent trauma. Duration: Hour(s): Location: Reports: Face Quality: Reports: Other (numbness) Improves with: Reports: None Worsens with: Reports: None Past Medical History HEENT History: Reports: Allergic Rhinitis, Cataract, Glaucoma, Hard of Hearing, Other (See Below) Other HEENT History: broken ear drum right ear, WEARS CORRECTIVE LENS Cardiovascular History: Reports: Bypass, CAD, High Cholesterol, Hypertension, [place], Other (See Below) Other Cardiovascular History: abnormal heart rythm Respiratory History: Reports: Bronchitis, Recurrent Gastrointestinal History: Reports: Chronic Constipation Other Gastrointestinal History: peptic ulcer disease Genitourinary History: Reports: Chronic Renal Insuffiency, Other (See Below) Other Genitourinary History: sees a kidney MD at [facility] and was told her kidneys are "ok". 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 breast lumpectomy Musculoskeletal History: Reports: Arthritis, Back Pain, Chronic, Other (See Below) Other Musculoskeletal History: Arthritis in fingers. Left hip bursitis. General weakness. muscle tear of left external oblique. Joint pain left thigh and pelvic region. mild central and bilateral foramnal L5-S1 spinal stenosis with ligamentum flavum hypertrophy. lumbar spondylosis Neurological History: Reports: Headaches, Chronic, Vertigo Psychiatric History: Reports: Anxiety, Depression Endocrine/Metabolic History: Reports: Diabetes, Type II, Hypothyroidism, Obesity/BMI 30+ Other Endocrine/Metabolic History: Takes insulin in am and bedtime. Unsure of insulin's name. Hematologic History: Reports: Anemia, Other (See Below) Other Hematologic History: Hx of hypernatremia Immunologic History: Reports: None Oncologic (Cancer) History: Reports: None Dermatologic History: Reports: None - Infectious Disease History Infectious Disease History: Reports: Chicken Pox, Measles, Shingles - Past Surgical History HEENT Surgical History: Reports: Cataract Surgery, Tonsillectomy Other HEENT Surgeries/Procedures: right eye Cardiovascular Surgical History: Reports: Coronary Artery Bypass, Coronary Artery Stent Other Cardiovascular Surgeries/Procedures: s/p heart surgery Respiratory Surgical History: Reports: None GI Surgical History: Reports: None, Appendectomy, Cholecystectomy, Colonoscopy Female Surgical History: Reports: Breast Biopsy, Section Other Musculoskeletal Surgeries/Procedures:: s/p lumbar spine surgery Social & Family History - Family History Family Medical History: No Pertinent Family History - Caffeine Use Caffeine Use: Reports: Coffee Caffeine Use Comment: 8 oz daily - Living Situation & Occupation Living situation: Reports: Single ED ROS GENERAL - Review of Systems Review Of Systems: Comprehensive ROS is negative, except as noted in HPI. ED EXAM, GENERAL - Physical Exam Exam: See Below Exam Limited By: No Limitations General Appearance: Alert Eye Exam: Bilateral Eye: Other (pupils pinpoint with a conjugate gaze) Nose: Normal Inspection, Normal Mucosa, No Blood Throat/Mouth: Normal Voice, No Airway Compromise, Other (No teeth. Dark brown rough patch to posterior tongue) Head: Atraumatic, Normocephalic, Other (no facial droop, muscles over the forehead intact, no tenderness over the temporal artery) Neck: Supple, Non-Tender Respiratory/Chest: No Respiratory Distress, Lungs Clear Cardiovascular: Normal Peripheral Pulses, No JVD GI/Abdominal: Soft, Non-Tender Extremities: Normal Inspection, Normal Range of Motion, Non-Tender, Normal Capillary Refill, No Pedal Edema Neurological: Alert Skin Exam: Warm, Dry, Intact Course - Vital Signs Last Recorded V/S: Last Vital Signs Temp 98.1 F 10/29/20 17:30 Pulse 78 10/29/20 17:30 Resp 14 10/29/20 17:30 BP 124/60 10/29/20 17:30 Pulse Ox 99 10/29/20 17:30 - Orders/Labs/Meds Orders: Active Orders 24 hr Category Date Time Status Peripheral IV Insertion Adult [OM.PC] Stat Oth 10/29/20 17:30 Ordered Labs: Laboratory Tests 10/29/20 10/29/20 10/29/20 Range/Units 18:20 18:20 20:05 WBC 6.2 (5.0-10.0) 10^3/uL RBC 4.57 (4.2-5.4) 10^6/uL Hgb 13.9 D (12.0-16.0) g/dL Hct 43.1 (37.0-47.0) % MCV 94.3 (80-100) fL MCH 30.4 (27.0-34.0) pg MCHC 32.3 L (33.0-35.0) g/dL Plt Count 174 (150-450) 10^3/uL Neut % (Auto) 51.4 (42.2-75.2) % Lymph % (Auto) 35.3 (20.5-50.1) % Routt % (Auto) 6.5 (2-8) % Eos % (Auto) 5.7 H (1.0-3.0) % Baso % (Auto) 1.1 H (0.0-1.0) % Sodium 144 (136-145) mmol/L Potassium 4.4 (3.5-5.1) mmol/L Chloride 108 H (98-107) mmol/L Carbon Dioxide 26 (21-32) mmol/L Anion Gap 14.4 H (7-13) mEq/L BUN 31 H (7-18) mg/dL Creatinine 2.93 H (0.55-1.02) mg/dL Est Cr Clr Drug Dosing 16.38 mL/min Estimated GFR (MDRD) 16 BUN/Creatinine Ratio 10.6 (No establ ref range) Glucose 91 (70-99) mg/dL Calcium 8.5 (8.5-10.1) mg/dL Magnesium 2.3 (1.8-2.4) mg/dL Total Bilirubin 0.2 (0.2-1.0) mg/dL AST 30 (15-37) U/L ALT 26 (14-59) U/L Alkaline Phosphatase 118 H (46-116) U/L C-Reactive Protein < 0.2 (0.0-0.9) mg/dL Total Protein 6.2 L (6.4-8.2) g/dL Albumin 2.6 L (3.4-5.0) g/dL Globulin 3.6 Albumin/Globulin Ratio 0.72 TSH, Ultra Sensitive 150.40 H (0.36-3.74) uIU/mL Urine Color Yellow (YELLOW) Urine Appearance Clear (CLEAR) Urine pH 7.0 (5.0-9.0) Ur Specific Ewing >= 1.030 (1.005-1.030) Urine Protein >=300 H (NEGATIVE) Urine Glucose (UA) Negative (NEGATIVE) Urine Ketones Negative (NEGATIVE) Urine Occult Blood Small H (NEGATIVE) Urine Nitrite Negative (NEGATIVE) Urine Bilirubin Negative (NEGATIVE) Urine Urobilinogen 0.2 (0.2-1.0) mg/dL Ur Leukocyte Esterase Negative (NEGATIVE) Urine RBC 0-5 (0-5) /HPF Urine WBC 0-5 (0-5/HPF) /HPF Ur Epithelial Cells Moderate H (NOT SEEN) /HPF Urine Bacteria Few (0-FEW/HPF) /HPF Urine Opiates Screen (NEGATIVE) Ur Oxycodone Screen (NEGATIVE) Urine Methadone Screen (NEGATIVE) Ur Barbiturates Screen (NEGATIVE) U Tricyclic Antidepress (NEGATIVE) Ur Phencyclidine Scrn (NEGATIVE) Ur Amphetamine Screen (NEGATIVE) U Methamphetamines Scrn (NEGATIVE) Urine MDMA Screen (NEGATIVE) U Benzodiazepines Scrn (NEGATIVE) Urine Cocaine Screen (NEGATIVE) U Marijuana (THC) Screen (NEGATIVE) Ethyl Alcohol < 3 (0) mg/dL 10/29/20 Range/Units 20:05 WBC (5.0-10.0) 10^3/uL RBC (4.2-5.4) 10^6/uL Hgb (12.0-16.0) g/dL Hct (37.0-47.0) % MCV (80-100) fL MCH (27.0-34.0) pg MCHC (33.0-35.0) g/dL Plt Count (150-450) 10^3/uL Neut % (Auto) (42.2-75.2) % Lymph % (Auto) (20.5-50.1) % Routt % (Auto) (2-8) % Eos % (Auto) (1.0-3.0) % Baso % (Auto) (0.0-1.0) % Sodium (136-145) mmol/L Potassium (3.5-5.1) mmol/L Chloride (98-107) mmol/L Carbon Dioxide (21-32) mmol/L Anion Gap (7-13) mEq/L BUN (7-18) mg/dL Creatinine (0.55-1.02) mg/dL Est Cr Clr Drug Dosing mL/min Estimated GFR (MDRD) BUN/Creatinine Ratio (No establ ref range) Glucose (70-99) mg/dL Calcium (8.5-10.1) mg/dL Magnesium (1.8-2.4) mg/dL Total Bilirubin (0.2-1.0) mg/dL AST (15-37) U/L ALT (14-59) U/L Alkaline Phosphatase (46-116) U/L C-Reactive Protein (0.0-0.9) mg/dL Total Protein (6.4-8.2) g/dL Albumin (3.4-5.0) g/dL Globulin Albumin/Globulin Ratio TSH, Ultra Sensitive (0.36-3.74) uIU/mL Urine Color (YELLOW) Urine Appearance (CLEAR) Urine pH (5.0-9.0) Ur Specific Ewing (1.005-1.030) Urine Protein (NEGATIVE) Urine Glucose (UA) (NEGATIVE) Urine Ketones (NEGATIVE) Urine Occult Blood (NEGATIVE) Urine Nitrite (NEGATIVE) Urine Bilirubin (NEGATIVE) Urine Urobilinogen (0.2-1.0) mg/dL Ur Leukocyte Esterase (NEGATIVE) Urine RBC (0-5) /HPF Urine WBC (0-5/HPF) /HPF Ur Epithelial Cells (NOT SEEN) /HPF Urine Bacteria (0-FEW/HPF) /HPF Urine Opiates Screen Negative (NEGATIVE) Ur Oxycodone Screen Negative (NEGATIVE) Urine Methadone Screen Negative (NEGATIVE) Ur Barbiturates Screen Negative (NEGATIVE) U Tricyclic Antidepress Negative (NEGATIVE) Ur Phencyclidine Scrn Negative (NEGATIVE) Ur Amphetamine Screen Negative (NEGATIVE) U Methamphetamines Scrn Negative (NEGATIVE) Urine MDMA Screen Negative (NEGATIVE) U Benzodiazepines Scrn Negative (NEGATIVE) Urine Cocaine Screen Negative (NEGATIVE) U Marijuana (THC) Screen Negative (NEGATIVE) Ethyl Alcohol (0) mg/dL Meds: Medications Discontinued Medications Generic Name Dose Route Start Last Admin Trade Name Freq PRN Reason Stop Dose Admin Sodium Chloride 1,000 mls @ 999 mls/hr 10/29/20 17:31 10/29/20 18:32 Normal Saline IV 10/29/20 18:31 999 mls/hr .BOLUS ONE Administration Sodium Chloride 10 ml 10/29/20 17:30 10/29/20 18:33 Sodium Chloride 0.9% 10 Ml Syringe FLUSH 10 ml ASDIRECTED PRN Administration Keep Vein Open - Re-Assessments/Exams Free Text/Narrative Re-Assessment/Exam: 10/29/20 18:53 care taken over by Patricia Mattson SWITCHBOARD OPERATOR SUPERVISOR at shift change
[2020-10-29 18:01] VITALS: BP 124/60; PULSE 78
--- NOTE | 2020-10-29 18:19 | CT ---
PROCEDURE INFORMATION: Exam: CT Head Without Contrast Exam date and time: 10/29/2020 6:08 PM Age: 74 years old Clinical indication: Weakness, facial; Additional info: Left face numbness, pinpoint pupils TECHNIQUE: Imaging protocol: Computed tomography of the head without contrast. Radiation optimization: All CT scans at this facility use at least one of these dose optimization techniques: automated exposure control; mA and/or kV adjustment per patient size (includes targeted exams where dose is matched to clinical indication); or iterative reconstruction. Other technique: STROKE PROTOCOL was implemented. COMPARISON: No relevant prior studies available. FINDINGS: Brain: There is mild amount of scattered areas of hypoattenuation of the supratentorial white matter, most likely secondary to microvascular ischemic changes. No acute intracranial hemorrhage. Cerebral ventricles: No ventriculomegaly. Paranasal sinuses: Visualized sinuses are unremarkable. No fluid levels. Mastoid air cells: Visualized mastoid air cells are well aerated. Bones/joints: Unremarkable. No acute fracture. Soft tissues: Unremarkable. IMPRESSION: No acute intracranial process. ASSESSMENT: ASPECTS ([place] Stroke Program Early CT Score) is 10.
[2020-10-29 18:56] LABS: ANION GAP 14.4 mEq/L (7-13); CHLORIDE,CL 108 mmol/L (98-107); SODIUM,NA 144 mmol/L (136-145)
[2020-10-29 20:14] LABS: AMPHETAMINES,URINE NEGATIVE (NEGATIVE); BARBITURATES,URINE NEGATIVE (NEGATIVE); BENZODIAZEPINE,URINE NEGATIVE (NEGATIVE); MDMA (ECSTASY), URINE NEGATIVE (NEGATIVE); METHADONE,URINE NEGATIVE (NEGATIVE); METHAMPHETAMINES,URINE NEGATIVE (NEGATIVE); OPIATES,URINE NEGATIVE (NEGATIVE); OXYCODONE,URINE NEGATIVE (NEGATIVE); PHENCYCLIDINE,URINE NEGATIVE (NEGATIVE); TCA,URINE NEGATIVE (NEGATIVE)
== END 2020-10-29 20:25 | disposition home or self-care (01) ==
LOC: DL.ED 17:10
DX: E03.9 Hypothyroidism, unspecified (principal); I25.10 Atherosclerotic heart disease of native coronary artery without angina pectoris; E78.00 Pure hypercholesterolemia, unspecified; I12.9 Hypertensive chronic kidney disease with stage 1 through stage 4 chronic kidney disease, or unspecified chronic kidney disease; E11.22 Type 2 diabetes mellitus with diabetic chronic kidney disease; N18.9 Chronic kidney disease, unspecified; E66.9 Obesity, unspecified; I25.2 Old myocardial infarction; Z68.34 Body mass index [BMI] 34.0-34.9, adult
CPT/HCPCS: 36415; 70450; 80053; 80305; 80307; 81001; 83735; 84443; 85025; 86140; 99285; J7030

== ENCOUNTER 2021-03-30 09:56 | Inpatient (IN) | payer MEDICARE, OTHER ==
[2021-03-30] MEDS ORDERED: Sodium Chloride 0.9% 10 ML Syringe FLUSH PRN (10:30)
[2021-03-30] MEDS ORDERED: Ondansetron 4 MG/2 ML SDV IV ONE (10:33)
[2021-03-30] MEDS ORDERED: Sodium Chloride 0.9% 1,000 ML IV ONE (10:33)
[2021-03-30 11:25] LABS: ANION GAP 14.8 mEq/L (7-13)
[2021-03-30] MEDS ORDERED: Iopamidol 755 Mg/ML 100 ML Bottle IVPUSH ONE (11:41)
[2021-03-30] MEDS ORDERED: 50% Dextrose in Water 50 ML Syringe IVPUSH PRN (13:19)
[2021-03-30] MEDS ORDERED: oxyCODONE 5 MG Tab PO PRN (13:24)
[2021-03-30] MEDS ORDERED: Acetaminophen 325 MG Tab PO PRN (13:24)
[2021-03-30] MEDS: Heparin Sodium 5,000 Units/ML Vial SUBCUT SCH ×2 (15:39→21:28)
[2021-03-30] MEDS: Ondansetron 4 MG/2 ML SDV IVPUSH PRN (15:47)
[2021-03-30] MEDS ORDERED: Pregabalin 75 MG Cap PO PRN (17:00)
[2021-03-30] MEDS ORDERED: Albuterol/Ipratropium 3.0-0.5 MG/3 ML Neb Soln NEB PRN (17:07)
[2021-03-30] MEDS: Insulin Lispro 100 Units/ML 3 ML Vial SUBCUT SCH ×2 (17:40→21:29)
[2021-03-30] MEDS: Nystatin Topical Powder 30 GM Bottle TOP SCH ×2 (18:26→21:27)
[2021-03-30] MEDS: Nicotine 14 MG/24 Hr Patch TRDERM SCH (18:26)
[2021-03-30] MEDS: Pregabalin 75 MG Cap PO PRN (18:28)
[2021-03-30] MEDS ORDERED: Non-Formulary Medication 1 Each (Rosuvastatin [Crestor] 5 MG Tablet) PO SCH (21:00)
[2021-03-30] MEDS ORDERED: Gemfibrozil 600 MG Tab PO SCH (21:00)
[2021-03-30] MEDS ORDERED: Pregabalin 75 MG Cap PO SCH (21:00)
[2021-03-30] MEDS ORDERED: DONEPEZIL HCL 5 MG PO SCH (21:00)
[2021-03-30] MEDS ORDERED: INSULIN DETEMIR 100 UNIT/ML SQ SCH (21:00)
[2021-03-30] MEDS: Insulin Glarg,Human.Rec.Analog 100 Unit/ML SUBCUT SCH (21:25)
[2021-03-30] MEDS: Budesonide 0.5 MG/2 ML Neb Susp INH SCH (21:27)
[2021-03-30] MEDS: ClonazePAM 0.5 MG Tab PO PRN (21:28)
[2021-03-31] MEDS: Heparin Sodium 5,000 Units/ML Vial SUBCUT SCH ×3 (05:51→21:16)
[2021-03-31] MEDS: Levothyroxine 125 MCG Tab PO SCH (05:52)
[2021-03-31 07:20] LABS: ANION GAP 16.1 mEq/L (7-13)
[2021-03-31] MEDS ORDERED: Omeprazole 20 MG Cap.CR PO SCH (09:00)
[2021-03-31] MEDS ORDERED: PIOGLITAZONE 15 MG PO SCH (09:00)
[2021-03-31] MEDS ORDERED: Sertraline 50 MG Tab PO SCH (09:00)
[2021-03-31] MEDS ORDERED: Nicotine 14 MG/24 Hr Patch TRDERM SCH (09:00)
[2021-03-31] MEDS: Nicotine 14 MG/24 Hr Patch TRDERM SCH (10:12)
[2021-03-31] MEDS: Cholecalciferol (Vitamin D3) 25 MCG Tab PO SCH (10:13)
[2021-03-31] MEDS: Multivitamins with Iron/Calcium/Folic Acid/Minerals Tab PO SCH (10:13)
[2021-03-31] MEDS: amLODIPine 5 MG Tab PO SCH (10:14)
[2021-03-31] MEDS: Aspirin 325 MG Tab.EC PO SCH (10:14)
[2021-03-31] MEDS: Ferrous Sulfate 325 MG Tab PO SCH (10:14)
[2021-03-31] MEDS: Pregabalin 75 MG Cap PO SCH (10:14)
[2021-03-31] MEDS: Isosorbide Mononitrate 30 MG Tab.ER PO SCH (10:15)
[2021-03-31] MEDS: Metoprolol Tartrate 50 MG Tab PO SCH (10:15)
[2021-03-31] MEDS: Insulin Glarg,Human.Rec.Analog 100 Unit/ML SUBCUT SCH ×2 (10:16→22:29)
[2021-03-31] MEDS: Insulin Lispro 100 Units/ML 3 ML Vial SUBCUT SCH ×4 (10:16→22:29)
[2021-03-31] MEDS: Nystatin Topical Powder 30 GM Bottle TOP SCH ×3 (10:20→21:14)
[2021-03-31] MEDS: Budesonide 0.5 MG/2 ML Neb Susp INH SCH ×2 (12:06→21:15)
[2021-03-31] MEDS: Ondansetron 4 MG/2 ML SDV IVPUSH PRN ×2 (16:23→21:17)
[2021-03-31] MEDS ORDERED: Calcium Carbonate 500 MG Tab.Chew PO PRN (21:06)
[2021-03-31] MEDS: Dexamethasone 6 MG TABLET PO SCH (21:14)
[2021-03-31] MEDS: ClonazePAM 0.5 MG Tab PO PRN (21:17)
[2021-03-31] MEDS: Famotidine 20 MG Tab PO SCH (22:30)
[2021-03-31] MEDS: Pregabalin 75 MG Cap PO PRN (22:31)
[2021-04-01] MEDS: Heparin Sodium 5,000 Units/ML Vial SUBCUT SCH ×3 (05:38→22:05)
[2021-04-01] MEDS: Levothyroxine 125 MCG Tab PO SCH (05:39)
[2021-04-01 07:09] LABS: ANION GAP 17.1 mEq/L (7-13)
[2021-04-01] MEDS: Insulin Lispro 100 Units/ML 3 ML Vial SUBCUT SCH ×4 (09:42→22:07)
[2021-04-01] MEDS: Insulin Glarg,Human.Rec.Analog 100 Unit/ML SUBCUT SCH ×2 (09:46→22:07)
[2021-04-01] MEDS: Nicotine 14 MG/24 Hr Patch TRDERM SCH (09:52)
[2021-04-01] MEDS: Cholecalciferol (Vitamin D3) 25 MCG Tab PO SCH (09:55)
[2021-04-01] MEDS: Dexamethasone 6 MG TABLET PO SCH (09:55)
[2021-04-01] MEDS: Isosorbide Mononitrate 30 MG Tab.ER PO SCH (09:55)
[2021-04-01] MEDS: Multivitamins with Iron/Calcium/Folic Acid/Minerals Tab PO SCH (09:56)
[2021-04-01] MEDS: Aspirin 325 MG Tab.EC PO SCH (09:56)
[2021-04-01] MEDS: Pregabalin 75 MG Cap PO SCH (09:56)
[2021-04-01] MEDS: Ferrous Sulfate 325 MG Tab PO SCH (09:56)
[2021-04-01] MEDS: amLODIPine 5 MG Tab PO SCH (09:57)
[2021-04-01] MEDS: Metoprolol Tartrate 50 MG Tab PO SCH (09:57)
[2021-04-01] MEDS: ClonazePAM 0.5 MG Tab PO PRN ×2 (10:00→22:06)
[2021-04-01] MEDS: Nystatin Topical Powder 30 GM Bottle TOP SCH ×3 (10:01→22:08)
[2021-04-01] MEDS: Budesonide 0.5 MG/2 ML Neb Susp INH SCH ×2 (11:51→22:06)
[2021-04-01] MEDS ORDERED: guaiFENesin 100 MG/5 ML Soln 5 ML UD Cup PO PRN (15:09)
[2021-04-01] MEDS: Famotidine 20 MG Tab PO SCH (22:06)
[2021-04-01] MEDS: Pregabalin 75 MG Cap PO PRN (22:06)
[2021-04-02] MEDS: Levothyroxine 125 MCG Tab PO SCH (05:13)
[2021-04-02] MEDS: Ondansetron 4 MG/2 ML SDV IVPUSH PRN (05:13)
[2021-04-02] MEDS: Heparin Sodium 5,000 Units/ML Vial SUBCUT SCH (05:13)
[2021-04-02 07:51] LABS: ANION GAP 14.9 mEq/L (7-13)
[2021-04-02] MEDS: Ferrous Sulfate 325 MG Tab PO SCH (09:01)
[2021-04-02] MEDS: Multivitamins with Iron/Calcium/Folic Acid/Minerals Tab PO SCH (09:01)
[2021-04-02] MEDS: Cholecalciferol (Vitamin D3) 25 MCG Tab PO SCH (09:02)
[2021-04-02] MEDS: Isosorbide Mononitrate 30 MG Tab.ER PO SCH (09:02)
[2021-04-02] MEDS: amLODIPine 5 MG Tab PO SCH (09:02)
[2021-04-02] MEDS: Aspirin 325 MG Tab.EC PO SCH (09:03)
[2021-04-02] MEDS: Pregabalin 75 MG Cap PO SCH (09:03)
[2021-04-02] MEDS: Dexamethasone 6 MG TABLET PO SCH (09:03)
[2021-04-02] MEDS: Metoprolol Tartrate 50 MG Tab PO SCH (09:04)
[2021-04-02] MEDS: Insulin Lispro 100 Units/ML 3 ML Vial SUBCUT SCH ×2 (09:05→12:38)
[2021-04-02] MEDS: Nicotine 14 MG/24 Hr Patch TRDERM SCH (09:06)
[2021-04-02] MEDS: Insulin Glarg,Human.Rec.Analog 100 Unit/ML SUBCUT SCH (09:07)
[2021-04-02] MEDS: Nystatin Topical Powder 30 GM Bottle TOP SCH (09:13)
[2021-04-02] MEDS ORDERED: Polyethylene Glycol 3350 Powder 17 GM Packet PO ONE (10:04)
[2021-04-02] MEDS: ClonazePAM 0.5 MG Tab PO PRN (10:51)
[2021-04-02 12:37] VITALS: BP 145/65; PULSE 63
== END 2021-04-02 13:50 | disposition home or self-care (01) | DRG 177 ==
LOC: DL.ED 09:56 → DL.MS 12:55 → DL.ED 12:55
PROVIDERS: ADMIT Internal Medicine; ATTEND Internal Medicine
PROC: 3E0DX3Z Introduction of Anti-inflammatory into Mouth and Pharynx, External Approach (ICD-10-PCS; principal; 2021-04-02)
DX: U07.1 COVID-19 (principal); J96.01 Acute respiratory failure with hypoxia; R53.1 Weakness; F32.1 Major depressive disorder, single episode, moderate; N18.4 Chronic kidney disease, stage 4 (severe); H40.9 Unspecified glaucoma; H91.90 Unspecified hearing loss, unspecified ear; I25.10 Atherosclerotic heart disease of native coronary artery without angina pectoris; E78.00 Pure hypercholesterolemia, unspecified; K59.09 Other constipation; Z87.11 Personal history of peptic ulcer disease; M19.90 Unspecified osteoarthritis, unspecified site; G89.29 Other chronic pain; M54.9 Dorsalgia, unspecified; F32.A Depression, unspecified; F41.9 Anxiety disorder, unspecified; E86.0 Dehydration; D64.9 Anemia, unspecified; E11.22 Type 2 diabetes mellitus with diabetic chronic kidney disease; K52.9 Noninfective gastroenteritis and colitis, unspecified; I12.9 Hypertensive chronic kidney disease with stage 1 through stage 4 chronic kidney disease, or unspecified chronic kidney disease; E03.9 Hypothyroidism, unspecified; Z79.82 Long term (current) use of aspirin; Z91.14 Patient's other noncompliance with medication regimen; I25.2 Old myocardial infarction; Z95.1 Presence of aortocoronary bypass graft; Z88.1 Allergy status to other antibiotic agents; Z88.5 Allergy status to narcotic agent; Z79.52 Long term (current) use of systemic steroids; Z88.8 Allergy status to other drugs, medicaments and biological substances; Z79.4 Long term (current) use of insulin; Z79.899 Other long term (current) drug therapy; Z79.890 Hormone replacement therapy; Z91.19 Patient's noncompliance with other medical treatment and regimen
CPT/HCPCS: 36415; 71045; 74018; 80053; 81001; 82150; 83605; 83690; 83735; 84100; 84443; 84484; 85025; 93005; 93010; 96374; 99285 ×2; J2405; J7030; U0002; 80048; 82947; 85379; A9270-GY; J1644; J1815-GY; J8540

== ENCOUNTER 2021-04-25 22:49 | Emergency (ER) | payer MEDICARE, OTHER ==
[2021-04-25] MEDS ORDERED: Sodium Chloride 0.9% 1,000 ML IV ONE (22:55)
[2021-04-26] LABS: ANION GAP 17.9 mEq/L (7-13); CHLORIDE,CL 107 mmol/L (98-107); SODIUM,NA 141 mmol/L (136-145)
[2021-04-26 00:26] LABS: CORONAVIRUS COVID-19 NAA POSITIVE (NEGATIVE)
[2021-04-26 02:11] VITALS: BP 153/79; PULSE 70
== END 2021-04-26 02:10 | disposition home or self-care (01) ==
LOC: DL.ED 22:49
DX: U07.1 COVID-19 (principal); R19.7 Diarrhea, unspecified; I12.9 Hypertensive chronic kidney disease with stage 1 through stage 4 chronic kidney disease, or unspecified chronic kidney disease; E11.22 Type 2 diabetes mellitus with diabetic chronic kidney disease; N18.9 Chronic kidney disease, unspecified; E03.9 Hypothyroidism, unspecified; I25.10 Atherosclerotic heart disease of native coronary artery without angina pectoris; E78.00 Pure hypercholesterolemia, unspecified; I25.2 Old myocardial infarction; E66.9 Obesity, unspecified; Z68.30 Body mass index [BMI] 30.0-30.9, adult; Z88.5 Allergy status to narcotic agent; Z88.8 Allergy status to other drugs, medicaments and biological substances; Z79.82 Long term (current) use of aspirin; Z79.899 Other long term (current) drug therapy; Z72.0 Tobacco use
CPT/HCPCS: 0240U; 36415; 80053; 82150; 82272; 82947; 83605; 83690; 84484; 85025; 87040; 87046; 99283; 99284; J7030

== ENCOUNTER 2021-08-09 21:34 | Emergency (ER) | payer MEDICARE, OTHER ==
[2021-08-09] MEDS ORDERED: Sodium Chloride 0.9% 10 ML Syringe FLUSH PRN (21:49)
[2021-08-09 22:27] LABS: ANION GAP 13.1 mEq/L (7-13); CHLORIDE,CL 110 mmol/L (98-107); SODIUM,NA 142 mmol/L (136-145)
[2021-08-09 22:30] LABS: ESTIMATED GFR 11 mL/min (>=60)
[2021-08-09 23:57] LABS: AMPHETAMINES,URINE NEGATIVE (NEGATIVE); BARBITURATES,URINE NEGATIVE (NEGATIVE); BENZODIAZEPINE,URINE NEGATIVE (NEGATIVE); MDMA (ECSTASY), URINE NEGATIVE (NEGATIVE); METHADONE,URINE NEGATIVE (NEGATIVE); METHAMPHETAMINES,URINE NEGATIVE (NEGATIVE); OPIATES,URINE NEGATIVE (NEGATIVE); OXYCODONE,URINE NEGATIVE (NEGATIVE); PHENCYCLIDINE,URINE NEGATIVE (NEGATIVE); TCA,URINE NEGATIVE (NEGATIVE)
[2021-08-10] MEDS ORDERED: Ciprofloxacin 500 MG Tab PO ONE (00:03)
[2021-08-10 00:16] VITALS: BP 169/78; PULSE 87
== END 2021-08-10 00:46 | disposition home or self-care (01) ==
LOC: DL.ED 21:34
DX: N17.9 Acute kidney failure, unspecified (principal); N39.0 Urinary tract infection, site not specified; I10 Essential (primary) hypertension; E78.00 Pure hypercholesterolemia, unspecified; E11.9 Type 2 diabetes mellitus without complications; Z79.899 Other long term (current) drug therapy; Z88.8 Allergy status to other drugs, medicaments and biological substances
CPT/HCPCS: 36415; 74176; 80053; 80305; 81001; 83690; 84484; 85025; 87086; 99284; A9270; J3490; 99285

== ENCOUNTER 2021-08-20 21:11 | Emergency (ER) | payer MEDICARE, OTHER ==
[2021-08-20 22:06] VITALS: BP 162/65; PULSE 75
[2021-08-21 00:09] LABS: ANION GAP 12.7 mEq/L (7-13)
[2021-08-21] MEDS ORDERED: Cephalexin 500 MG Cap PO ONE (02:51)
[2021-08-21] MEDS ORDERED: Cephalexin 500 MG Cap ONE (03:05)
== END 2021-08-21 03:11 | disposition home or self-care (01) ==
LOC: DL.ED 21:11
DX: N39.0 Urinary tract infection, site not specified (principal); I25.10 Atherosclerotic heart disease of native coronary artery without angina pectoris; E78.00 Pure hypercholesterolemia, unspecified; I10 Essential (primary) hypertension; I25.2 Old myocardial infarction; E11.9 Type 2 diabetes mellitus without complications; E03.9 Hypothyroidism, unspecified; F17.210 Nicotine dependence, cigarettes, uncomplicated; E66.9 Obesity, unspecified; Z68.1 Body mass index [BMI] 19.9 or less, adult; Z95.1 Presence of aortocoronary bypass graft; Z88.5 Allergy status to narcotic agent; Z88.8 Allergy status to other drugs, medicaments and biological substances; Z79.82 Long term (current) use of aspirin; Z79.899 Other long term (current) drug therapy
CPT/HCPCS: 36415; 74176; 80053; 81001; 83605; 83880; 85025; 87040; 87086; 99284; A9270

== ENCOUNTER 2021-10-30 16:39 | Emergency (ER) | payer MEDICARE, OTHER ==
[2021-10-30] MEDS: Albuterol 0.083% 2.5 MG/3 ML Neb Soln NEB ONE (18:29)
[2021-10-30 18:30] VITALS: PULSE 63
[2021-10-30 19:20] LABS: ANION GAP 11.4 mEq/L (7-13)
[2021-10-30] MEDS: Sodium Chloride 0.9% 1,000 ML IV ONE (19:46)
== END 2021-10-30 19:50 | disposition home or self-care (01) ==
LOC: DL.ED 16:39
DX: J44.9 Chronic obstructive pulmonary disease, unspecified (principal); E86.0 Dehydration; I25.10 Atherosclerotic heart disease of native coronary artery without angina pectoris; E78.00 Pure hypercholesterolemia, unspecified; I10 Essential (primary) hypertension; I25.2 Old myocardial infarction; Z88.5 Allergy status to narcotic agent; Z88.8 Allergy status to other drugs, medicaments and biological substances; Z79.82 Long term (current) use of aspirin; Z79.899 Other long term (current) drug therapy; Z95.1 Presence of aortocoronary bypass graft
CPT/HCPCS: 36415; 71045; 80053; 85025; 86140; 94640; 99284; J7613-GY

== ENCOUNTER 2021-11-19 14:38 | Emergency (ER) | payer MEDICARE, OTHER ==
[2021-11-19 14:59] VITALS: BP 108/56; PULSE 65
[2021-11-19 15:57] LABS: ANION GAP 10.7 mEq/L (7-13)
[2021-11-19] MEDS ORDERED: Ondansetron 4 MG/2 ML SDV IVPUSH ONE (15:59)
== END 2021-11-19 17:13 | disposition home or self-care (01) ==
LOC: DL.ED 14:38
DX: B34.9 Viral infection, unspecified (principal); I25.10 Atherosclerotic heart disease of native coronary artery without angina pectoris; I25.2 Old myocardial infarction; E78.00 Pure hypercholesterolemia, unspecified; I12.0 Hypertensive chronic kidney disease with stage 5 chronic kidney disease or end stage renal disease; E11.22 Type 2 diabetes mellitus with diabetic chronic kidney disease; N18.6 End stage renal disease; E03.9 Hypothyroidism, unspecified; E66.9 Obesity, unspecified; Z20.822 Contact with and (suspected) exposure to COVID-19; Z88.5 Allergy status to narcotic agent; Z88.8 Allergy status to other drugs, medicaments and biological substances; Z88.6 Allergy status to analgesic agent; Z68.36 Body mass index [BMI] 36.0-36.9, adult; Z79.4 Long term (current) use of insulin; Z79.82 Long term (current) use of aspirin; Z79.899 Other long term (current) drug therapy
CPT/HCPCS: 36415; 71045; 80053; 83605; 83735; 85025; 86140; 93005; 96374; 99285-25; J2405; U0002

== ENCOUNTER 2021-11-20 11:08 | Emergency (ER) | payer MEDICARE, OTHER ==
[2021-11-20 12:00] VITALS: BP 123/60; PULSE 63
== END 2021-11-20 12:55 | disposition home or self-care (01) ==
LOC: DL.ED 11:08
DX: S20.211A Contusion of right front wall of thorax, initial encounter (principal); I25.10 Atherosclerotic heart disease of native coronary artery without angina pectoris; E78.00 Pure hypercholesterolemia, unspecified; I12.9 Hypertensive chronic kidney disease with stage 1 through stage 4 chronic kidney disease, or unspecified chronic kidney disease; N18.9 Chronic kidney disease, unspecified; I25.2 Old myocardial infarction; Z95.1 Presence of aortocoronary bypass graft; Z88.5 Allergy status to narcotic agent; Z88.8 Allergy status to other drugs, medicaments and biological substances; Z79.82 Long term (current) use of aspirin; Z79.4 Long term (current) use of insulin; Z79.899 Other long term (current) drug therapy; W18.30XA Fall on same level, unspecified, initial encounter; Y92.009 Unspecified place in unspecified non-institutional (private) residence as the place of occurrence of the external cause
CPT/HCPCS: 71101-RT; 99283

== ENCOUNTER 2022-05-31 17:24 | Emergency (ER) | payer MEDICARE, OTHER ==
[~2022-05-31 17:24] MED LIST changes: -Dextrose 5%-0.45% NaCl 1,000 ML IV SCH; -Midazolam 1 MG/ML 2 ML SDV ONE; -fentaNYL 100 MCG/2 ML SDV ONE
[2022-05-31 17:27] VITALS: BP 148/64
[2022-05-31 18:20] LABS: ANION GAP 15.2 mEq/L (7-13)
[2022-05-31 18:50] LABS: CORONAVIRUS COVID-19 NAA NEGATIVE (NEGATIVE); RESPIRATORY SYNCYTIAL VIR NAA NEGATIVE (NEGATIVE)
[2022-05-31] MEDS ORDERED: Albuterol 0.083% 2.5 MG/3 ML Neb Soln NEB ONE (18:51)
[2022-05-31] MEDS ORDERED: Calcium Chloride 10% 1 GM/10 ML Syringe IVPUSH ONE (18:51)
[2022-05-31] MEDS ORDERED: 50% Dextrose in Water 50 ML Syringe IVPUSH PRN (18:52)
[2022-05-31] MEDS ORDERED: 50% Dextrose in Water 50 ML Syringe IVPUSH ONE (18:52)
[2022-05-31] MEDS ORDERED: Sodium Polystyrene Sulfonate 15 GM/60 ML Susp 60 ML Bot PO ONE (18:52)
[2022-05-31] MEDS ORDERED: Insulin Regular, Human 100 Units/ML 3 ML Vial IV ONE (18:52)
[2022-05-31 19:40] VITALS: PULSE 91
[2022-05-31] MEDS ORDERED: Levofloxacin 500 MG Tab PO ONE (20:55)
== END 2022-05-31 22:13 | disposition home or self-care (01) ==
LOC: DL.ED 17:24
DX: E87.5 Hyperkalemia (principal); I12.0 Hypertensive chronic kidney disease with stage 5 chronic kidney disease or end stage renal disease; E11.22 Type 2 diabetes mellitus with diabetic chronic kidney disease; N18.6 End stage renal disease; J18.9 Pneumonia, unspecified organism; I25.10 Atherosclerotic heart disease of native coronary artery without angina pectoris; E78.00 Pure hypercholesterolemia, unspecified; I25.2 Old myocardial infarction; E03.9 Hypothyroidism, unspecified; E66.9 Obesity, unspecified; Z95.1 Presence of aortocoronary bypass graft; Z99.2 Dependence on renal dialysis; Z20.822 Contact with and (suspected) exposure to COVID-19; Z68.33 Body mass index [BMI] 33.0-33.9, adult; Z79.82 Long term (current) use of aspirin; Z79.4 Long term (current) use of insulin; Z79.899 Other long term (current) drug therapy; Z88.8 Allergy status to other drugs, medicaments and biological substances; Z88.5 Allergy status to narcotic agent; Z88.6 Allergy status to analgesic agent
CPT/HCPCS: 0241U; 36415; 71045; 80053; 81001; 83605; 83735; 83880; 84100; 84132; 84484; 85025; 87040; 93005; 94640; 96374; 96375; 99285; A9270; C1758; J1815; 93010; J3490; J7613-GY

== ENCOUNTER 2022-06-30 14:28 | Emergency (ER) | payer MEDICARE, OTHER ==
[2022-06-30 14:50] VITALS: BP 164/90; PULSE 83
[2022-06-30] MEDS ORDERED: Metoclopramide 10 MG/2 ML SDV IM ONE (14:52)
[2022-06-30 15:00] LABS: APPEARANCE,URINE CLEAR (CLEAR); BILIRUBIN,URINE NEGATIVE (NEGATIVE); COLOR,URINE YELLOW (YELLOW); GLUCOSE,URINE NEGATIVE (NEGATIVE); KETONES,URINE NEGATIVE (NEGATIVE); LEUKOCYTE ESTERASE,URINE NEGATIVE (NEGATIVE); NITRITE,URINE NEGATIVE (NEGATIVE); OCCULT BLOOD,URINE TRACE-INTACT (NEGATIVE); PH,URINE 7.5 (5.0-9.0); PROTEIN,URINE >=300 (NEGATIVE); UROBILINOGEN,URINE 0.2 mg/dL (0.2-1.0)
[2022-06-30 15:08] LABS: BASOPHILS PERCENT AUTO 0.8 % (0.0-1.0); HEMOGLOBIN 13.4 g/dL (12.0-16.0); LYMPHOCYTES PERCENT AUTO 27.9 % (20.5-50.1); MEAN CORPUSCULAR HEMOGLOBIN 29.9 pg (27.0-34.0); MEAN CORPUSCULAR HGB CONC 32.7 g/dL (33.0-35.0); MEAN CORPUSCULAR VOLUME 91.5 fL (80-100); MONOCYTES PERCENT AUTO 5.2 % (2-8); NEUTROPHILS PERCENT AUTO 61.1 % (42.2-75.2); PLATELET COUNT,PLT 188 10^3/uL (150-450); RED BLOOD CELL COUNT 4.48 10^6/uL (4.2-5.4); WHITE BLOOD CELL COUNT,WBC 7.7 10^3/uL (5.0-10.0)
[2022-06-30 15:10] LABS: BACTERIA,URINE FEW /HPF (0-FEW/HPF); EPITHELIAL CELLS,URINE MODERATE /HPF (NOT SEEN); RBC,URINE 0-5 /HPF (0-5); WBC,URINE 0-5 /HPF (0-5/HPF)
[2022-06-30 15:30] LABS: LACTIC ACID 0.7 mmol/L (0.4-2.0)
[2022-06-30 15:36] LABS: ALANINE AMINOTRANSFERASE,ALT 16 U/L (14-59); ALBUMIN 3.3 g/dL (3.4-5.0); ALKALINE PHOSPHATASE 146 U/L (46-116); AMYLASE 14 U/L (25-115); ASPARTATE AMNIOTRANSFERASE,AST 16 U/L (15-37); BILIRUBIN TOTAL 0.3 mg/dL (0.2-1.0); BLOOD UREA NITROGEN,BUN 8 mg/dL (7-18); BUN/CREATININE RATIO 4.8 (No establ ref range); CARBON DIOXIDE,CO2 31 mmol/L (21-32); CHLORIDE,CL 100 mmol/L (98-107); CREATININE 1.66 mg/dL (0.55-1.02); EST CRCL DRUG DOSING (CG) 21.76 mL/min; GLUCOSE RANDOM 130 mg/dL (70-99); LIPASE 71 U/L (73-393); PROTEIN TOTAL,TP 6.6 g/dL (6.4-8.2); SODIUM,NA 136 mmol/L (136-145)
[2022-06-30 15:37] LABS: ESTIMATED GFR 32 mL/min (>=60)
== END 2022-06-30 15:48 | disposition home or self-care (01) ==
LOC: DL.ED 14:28
DX: J18.9 Pneumonia, unspecified organism (principal); I25.10 Atherosclerotic heart disease of native coronary artery without angina pectoris; E78.00 Pure hypercholesterolemia, unspecified; E11.22 Type 2 diabetes mellitus with diabetic chronic kidney disease; I12.9 Hypertensive chronic kidney disease with stage 1 through stage 4 chronic kidney disease, or unspecified chronic kidney disease; N18.9 Chronic kidney disease, unspecified; E03.9 Hypothyroidism, unspecified; I25.2 Old myocardial infarction; E66.9 Obesity, unspecified; Z68.31 Body mass index [BMI] 31.0-31.9, adult; Z88.5 Allergy status to narcotic agent; Z88.8 Allergy status to other drugs, medicaments and biological substances; Z79.82 Long term (current) use of aspirin; Z95.1 Presence of aortocoronary bypass graft
CPT/HCPCS: 36415; 71045; 80053; 81001; 82150; 83605; 83690; 84145; 85025; 96372; 99283; J2765

== ENCOUNTER 2022-12-31 15:05 | Emergency (ER) | payer MEDICARE, OTHER ==
[2022-12-31] MEDS ORDERED: Ondansetron 4 MG/2 ML SDV IV ONE ×2 (15:14→18:34)
[2022-12-31] MEDS ORDERED: HYDROmorphone 1 MG/ML Syringe IVPUSH ONE (15:14)
[2022-12-31 15:28] LABS: BASOPHILS PERCENT AUTO 1.1 % (0.0-1.0); EOSINOPHILS PERCENT AUTO 4.7 % (1.0-3.0); HEMATOCRIT 47.4 % (37.0-47.0); HEMOGLOBIN 16.3 g/dL (12.0-16.0); LYMPHOCYTES PERCENT AUTO 29.7 % (20.5-50.1); MEAN CORPUSCULAR HEMOGLOBIN 30.4 pg (27.0-34.0); MEAN CORPUSCULAR HGB CONC 34.4 g/dL (33.0-35.0); MEAN CORPUSCULAR VOLUME 88.4 fL (80-100); MONOCYTES PERCENT AUTO 4.4 % (2-8); NEUTROPHILS PERCENT AUTO 60.1 % (42.2-75.2); PLATELET COUNT,PLT 137 10^3/uL (150-450); RED BLOOD CELL COUNT 5.36 10^6/uL (4.2-5.4); WHITE BLOOD CELL COUNT,WBC 7.5 10^3/uL (5.0-10.0)
[2022-12-31] MEDS: Sodium Chloride 0.9% 10 ML Syringe FLUSH PRN ×2 (15:30→18:39)
[2022-12-31 15:40] VITALS: BP 185/98; PULSE 96
[2022-12-31 15:54] LABS: A/G RATIO 0.9; ALBUMIN 3.4 g/dL (3.4-5.0); ANION GAP 9.8 mEq/L (7-13); BILIRUBIN TOTAL 0.5 mg/dL (0.2-1.0); BUN/CREATININE RATIO 3.4 (No establ ref range); CALCIUM 8.1 mg/dL (8.5-10.1); CREATININE 2.07 mg/dL (0.55-1.02); POTASSIUM,K 3.8 mmol/L (3.5-5.1)
[2022-12-31 15:55] LABS: LACTIC ACID 0.9 mmol/L (0.4-2.0)
[2022-12-31] MEDS ORDERED: Take Home: Ondansetron 4 MG Tab.DIS, 5 Tab Pack PO ONE (18:34)
== END 2022-12-31 19:58 | disposition home or self-care (01) ==
LOC: DL.ED 15:05
DX: R10.10 Upper abdominal pain, unspecified (principal); I12.0 Hypertensive chronic kidney disease with stage 5 chronic kidney disease or end stage renal disease; N18.6 End stage renal disease; R11.0 Nausea; Z99.2 Dependence on renal dialysis; E78.00 Pure hypercholesterolemia, unspecified; I25.10 Atherosclerotic heart disease of native coronary artery without angina pectoris; I25.2 Old myocardial infarction; E11.9 Type 2 diabetes mellitus without complications; E03.9 Hypothyroidism, unspecified; E66.9 Obesity, unspecified; Z79.4 Long term (current) use of insulin; Z90.49 Acquired absence of other specified parts of digestive tract; Z95.1 Presence of aortocoronary bypass graft; Z95.5 Presence of coronary angioplasty implant and graft; Z79.82 Long term (current) use of aspirin; Z79.899 Other long term (current) drug therapy; Z88.8 Allergy status to other drugs, medicaments and biological substances; Z88.5 Allergy status to narcotic agent; Z88.6 Allergy status to analgesic agent; Z68.30 Body mass index [BMI] 30.0-30.9, adult
CPT/HCPCS: 36415; 74018; 76770; 80053; 83605; 83690; 84484; 85025; 93005; 93010; 96374; 96375; 96376; 99284; 99284-25; J1170; J2405; J3490; Q0162

== ENCOUNTER 2023-01-31 15:20 | Emergency (ER) | payer MEDICARE, OTHER ==
[2023-01-31 17:43] VITALS: PULSE 74
[2023-01-31] MEDS ORDERED: Acetaminophen 325 MG Tab PO ONE (17:44)
== END 2023-01-31 18:02 | disposition home or self-care (01) ==
LOC: DL.ED 15:20
DX: S20.211A Contusion of right front wall of thorax, initial encounter (principal); I25.810 Atherosclerosis of coronary artery bypass graft(s) without angina pectoris; I25.2 Old myocardial infarction; E78.00 Pure hypercholesterolemia, unspecified; I12.0 Hypertensive chronic kidney disease with stage 5 chronic kidney disease or end stage renal disease; E11.22 Type 2 diabetes mellitus with diabetic chronic kidney disease; N18.6 End stage renal disease; M19.90 Unspecified osteoarthritis, unspecified site; E03.9 Hypothyroidism, unspecified; F17.210 Nicotine dependence, cigarettes, uncomplicated; E66.9 Obesity, unspecified; Z68.29 Body mass index [BMI] 29.0-29.9, adult; Z88.8 Allergy status to other drugs, medicaments and biological substances; Z88.5 Allergy status to narcotic agent; Z88.6 Allergy status to analgesic agent; Z79.82 Long term (current) use of aspirin; Z79.899 Other long term (current) drug therapy; W01.0XXA Fall on same level from slipping, tripping and stumbling without subsequent striking against object, initial encounter; Y93.01 Activity, walking, marching and hiking; Y92.59 Other trade areas as the place of occurrence of the external cause
CPT/HCPCS: 71101; 99283; A9270

== ENCOUNTER 2023-02-08 08:54 | Emergency (ER) | payer MEDICARE, OTHER ==
[2023-02-08] MEDS ORDERED: Albuterol/Ipratropium 3.0-0.5 MG/3 ML Neb Soln NEB ONE (09:45)
[2023-02-08 09:53] LABS: BASOPHILS PERCENT AUTO 0.4 % (0.0-1.0); EOSINOPHILS PERCENT AUTO 2.6 % (1.0-3.0); HEMATOCRIT 44.4 % (37.0-47.0); HEMOGLOBIN 14.5 g/dL (12.0-16.0); LYMPHOCYTES PERCENT AUTO 34.3 % (20.5-50.1); MEAN CORPUSCULAR HEMOGLOBIN 29.6 pg (27.0-34.0); MEAN CORPUSCULAR HGB CONC 32.7 g/dL (33.0-35.0); MEAN CORPUSCULAR VOLUME 90.6 fL (80-100); MONOCYTES PERCENT AUTO 6.9 % (2-8); NEUTROPHILS PERCENT AUTO 55.8 % (42.2-75.2); PLATELET COUNT,PLT 148 10^3/uL (150-450); WHITE BLOOD CELL COUNT,WBC 4.9 10^3/uL (5.0-10.0)
[2023-02-08 10:04] LABS: ALBUMIN 2.9 g/dL (3.4-5.0); ANION GAP 12.7 mEq/L (7-13); BILIRUBIN TOTAL 0.6 mg/dL (0.2-1.0); BUN/CREATININE RATIO 10.3 (No establ ref range); CREATININE 3.41 mg/dL (0.55-1.02); EST CRCL DRUG DOSING (CG) 10.93 mL/min; PROTEIN TOTAL,TP 6.7 g/dL (6.4-8.2)
[2023-02-08 10:07] LABS: A/G RATIO 0.76
[2023-02-08 10:08] LABS: POTASSIUM,K 4.7 mmol/L (3.5-5.1)
[2023-02-08 10:19] LABS: CORONAVIRUS COVID-19 NAA NEGATIVE (NEGATIVE); INFLUENZA A NAA POSITIVE (NEGATIVE); INFLUENZA B NAA NEGATIVE (NEGATIVE)
[2023-02-08] MEDS ORDERED: Oseltamivir 30 MG Cap PO ONE (12:43)
[2023-02-08 13:00] VITALS: BP 160/73; PULSE 99
[2023-02-08] MEDS ORDERED: Glucagon,Human Recombinant 1 MG Vial IM PRN (15:22)
[2023-02-08] MEDS ORDERED: 50% Dextrose in Water 50 ML Syringe IVPUSH PRN (15:22)
[2023-02-08] MEDS ORDERED: Acetaminophen 500 MG Tab PO ONE (15:25)
[2023-02-08] MEDS ORDERED: Insulin Lispro 100 Units/ML 3 ML Vial SUBCUT SCH (17:00)
== END 2023-02-08 16:25 ==
LOC: DL.ED 08:54
DX: J11.1 Influenza due to unidentified influenza virus with other respiratory manifestations (principal); R09.02 Hypoxemia; F17.210 Nicotine dependence, cigarettes, uncomplicated; I12.0 Hypertensive chronic kidney disease with stage 5 chronic kidney disease or end stage renal disease; N18.6 End stage renal disease; E11.22 Type 2 diabetes mellitus with diabetic chronic kidney disease; I25.2 Old myocardial infarction; E03.9 Hypothyroidism, unspecified; E66.9 Obesity, unspecified; I25.10 Atherosclerotic heart disease of native coronary artery without angina pectoris; Z95.1 Presence of aortocoronary bypass graft; Z95.5 Presence of coronary angioplasty implant and graft; Z88.0 Allergy status to penicillin; Z88.1 Allergy status to other antibiotic agents; Z88.5 Allergy status to narcotic agent; Z88.8 Allergy status to other drugs, medicaments and biological substances; Z88.6 Allergy status to analgesic agent; Z79.82 Long term (current) use of aspirin; Z79.4 Long term (current) use of insulin; Z79.899 Other long term (current) drug therapy; Z20.822 Contact with and (suspected) exposure to COVID-19; Z68.28 Body mass index [BMI] 28.0-28.9, adult
CPT/HCPCS: 0240U; 36415; 71046; 80053; 82947; 84145; 85025; 93005; 93010; 94640; 99284; 99285; A9270-GY; J7620-GY

== ENCOUNTER 2023-04-13 19:37 | Emergency (ER) | payer MEDICARE, OTHER ==
[2023-04-13 20:04] VITALS: BP 167/102; PULSE 90
[2023-04-13] MEDS: Sodium Chloride 0.9% 10 ML Syringe FLUSH PRN (20:06)
[2023-04-13 20:18] LABS: BASOPHILS PERCENT AUTO 0.8 % (0.0-1.0); EOSINOPHILS PERCENT AUTO 4.7 % (1.0-3.0); HEMATOCRIT 29.6 % (37.0-47.0); HEMOGLOBIN 9.6 g/dL (12.0-16.0); LYMPHOCYTES PERCENT AUTO 29.8 % (20.5-50.1); MEAN CORPUSCULAR HEMOGLOBIN 31.8 pg (27.0-34.0); MEAN CORPUSCULAR HGB CONC 32.4 g/dL (33.0-35.0); MONOCYTES PERCENT AUTO 5.2 % (2-8); NEUTROPHILS PERCENT AUTO 59.5 % (42.2-75.2); PLATELET COUNT,PLT 115 10^3/uL (150-450); RED BLOOD CELL COUNT 3.02 10^6/uL (4.2-5.4); WHITE BLOOD CELL COUNT,WBC 7.2 10^3/uL (5.0-10.0)
[2023-04-13] MEDS: Labetalol 20 MG/4 ML Syringe IVPUSH ONE (20:22)
[2023-04-13 20:30] LABS: ALANINE AMINOTRANSFERASE,ALT 15 U/L (14-59); ALBUMIN 3.8 g/dL (3.4-5.0); ALKALINE PHOSPHATASE 190 U/L (46-116); ANION GAP 13.1 mEq/L (7-13); BILIRUBIN TOTAL 0.4 mg/dL (0.2-1.0); BLOOD UREA NITROGEN,BUN 12 mg/dL (7-18); BUN/CREATININE RATIO 4.8 (No establ ref range); CALCIUM 8.3 mg/dL (8.5-10.1); CARBON DIOXIDE,CO2 29 mmol/L (21-32); CHLORIDE,CL 98 mmol/L (98-107); CREATININE 2.52 mg/dL (0.55-1.02); GLUCOSE RANDOM 139 mg/dL (70-99); PROTEIN TOTAL,TP 7.7 g/dL (6.4-8.2); SODIUM,NA 136 mmol/L (136-145)
[2023-04-13 20:35] LABS: ESTIMATED GFR 19 mL/min (>=60)
[2023-04-13 20:36] LABS: POTASSIUM,K 4.1 mmol/L (3.5-5.1)
[2023-04-13 20:41] LABS: ASPARTATE AMNIOTRANSFERASE,AST 6 U/L (15-37)
== END 2023-04-13 21:47 | disposition home or self-care (01) ==
LOC: DL.ED 19:37
DX: R07.89 Other chest pain (principal); I12.9 Hypertensive chronic kidney disease with stage 1 through stage 4 chronic kidney disease, or unspecified chronic kidney disease; N18.9 Chronic kidney disease, unspecified; E78.00 Pure hypercholesterolemia, unspecified; I25.810 Atherosclerosis of coronary artery bypass graft(s) without angina pectoris; I25.2 Old myocardial infarction; E11.22 Type 2 diabetes mellitus with diabetic chronic kidney disease; E03.9 Hypothyroidism, unspecified; Z95.5 Presence of coronary angioplasty implant and graft; Z90.49 Acquired absence of other specified parts of digestive tract; Z79.82 Long term (current) use of aspirin; Z79.899 Other long term (current) drug therapy; Z88.6 Allergy status to analgesic agent; Z88.8 Allergy status to other drugs, medicaments and biological substances; Z88.5 Allergy status to narcotic agent
CPT/HCPCS: 36415; 80053; 84484; 85025; 93005; 96374; 99285; J1920; J3490

== ENCOUNTER 2023-11-09 07:21 | Emergency (ER) | payer MEDICARE, OTHER ==
[2023-11-09 09:07] LABS: BASOPHILS PERCENT AUTO 0.5 % (0.0-1.0); EOSINOPHILS PERCENT AUTO 1.7 % (1.0-3.0); HEMATOCRIT 40.5 % (37.0-47.0); HEMOGLOBIN 13.4 g/dL (12.0-16.0); LYMPHOCYTES PERCENT AUTO 8.2 % (20.5-50.1); MEAN CORPUSCULAR HEMOGLOBIN 30.2 pg (27.0-34.0); MEAN CORPUSCULAR HGB CONC 33.1 g/dL (33.0-35.0); MEAN CORPUSCULAR VOLUME 91.4 fL (80-100); MONOCYTES PERCENT AUTO 4.5 % (2-8); NEUTROPHILS PERCENT AUTO 85.1 % (42.2-75.2); PLATELET COUNT,PLT 195 10^3/uL (150-450); RED BLOOD CELL COUNT 4.43 10^6/uL (4.2-5.4); WHITE BLOOD CELL COUNT,WBC 10.9 10^3/uL (5.0-10.0)
[2023-11-09] MEDS: Ondansetron 4 MG/2 ML SDV IVPUSH ONE ×2 (09:19→15:43)
[2023-11-09] MEDS: Ondansetron 4 MG/2 ML SDV ONE (09:19)
[2023-11-09 09:23] LABS: PROTHROMBIN TIME 10.3 SEC (9.0-12.0); PTT,PARTIAL THROMBOPLSTIN TIME 26.5 SEC (22.0-34.0)
[2023-11-09 09:24] LABS: B-TYPE NATRIURETIC PEPTIDE,BNP 470 pg/ml (0-100)
[2023-11-09 09:31] LABS: ALANINE AMINOTRANSFERASE,ALT 11 U/L (14-59); ALBUMIN 2.6 g/dL (3.4-5.0); ALKALINE PHOSPHATASE 156 U/L (46-116); ANION GAP 13.3 mEq/L (7-13); ASPARTATE AMNIOTRANSFERASE,AST 16 U/L (15-37); BILIRUBIN TOTAL 0.5 mg/dL (0.2-1.0); BLOOD UREA NITROGEN,BUN 14 mg/dL (7-18); BUN/CREATININE RATIO 3.5 (No establ ref range); CALCIUM 8.4 mg/dL (8.5-10.1); CARBON DIOXIDE,CO2 24 mmol/L (21-32); CHLORIDE,CL 98 mmol/L (98-107); CREATININE 4.02 mg/dL (0.55-1.02); GLUCOSE RANDOM 107 mg/dL (70-99); LIPASE 14 U/L (16-77); MAGNESIUM 1.6 mg/dL (1.8-2.4); POTASSIUM,K 4.3 mmol/L (3.5-5.1); PROTEIN TOTAL,TP 5.8 g/dL (6.4-8.2); SODIUM,NA 131 mmol/L (136-145)
[2023-11-09 09:32] LABS: A/G RATIO 0.81; ESTIMATED GFR 11 mL/min (>=60)
[2023-11-09 09:54] LABS: INFLUENZA A NAA NEGATIVE (NEGATIVE); INFLUENZA B NAA NEGATIVE (NEGATIVE)
[2023-11-09 09:59] LABS: CORONAVIRUS COVID-19 NAA POSITIVE (NEGATIVE)
[2023-11-09] MEDS: LORazepam 2 MG/ML SDV IVPUSH ONE (10:20)
[2023-11-09] MEDS: Dexamethasone 4 MG/ML SDV IVPUSH ONE (10:20)
[2023-11-09] MEDS: REMDESIVIR 200 MG in Sodium Chloride 0.9% 250 ML IV ONE (10:49)
[2023-11-09 14:58] VITALS: BP 156/70; PULSE 101
[2023-11-09] MEDS: Acetaminophen 325 MG Tab PO ONE (15:44)
== END 2023-11-09 16:25 ==
LOC: DL.ED 07:21
DX: U07.1 COVID-19 (principal); J96.01 Acute respiratory failure with hypoxia; I12.0 Hypertensive chronic kidney disease with stage 5 chronic kidney disease or end stage renal disease; N18.6 End stage renal disease; E11.22 Type 2 diabetes mellitus with diabetic chronic kidney disease; F17.210 Nicotine dependence, cigarettes, uncomplicated; Z95.1 Presence of aortocoronary bypass graft; Z95.5 Presence of coronary angioplasty implant and graft; Z86.16 Personal history of COVID-19; Z90.49 Acquired absence of other specified parts of digestive tract; Z79.82 Long term (current) use of aspirin; Z79.4 Long term (current) use of insulin; Z79.899 Other long term (current) drug therapy; Z88.6 Allergy status to analgesic agent; Z88.8 Allergy status to other drugs, medicaments and biological substances; Z88.5 Allergy status to narcotic agent; Z99.2 Dependence on renal dialysis
CPT/HCPCS: 0240U; 36415; 71045; 80053; 83690; 83735; 83880; 84484; 85025; 85610; 85730; 93005; 93010; 96365; 96366; 96375; 96376; 99284-25; 99285; A9270-GY; J0248; J1100; J2060; J2405; J7050

== ENCOUNTER 2024-03-16 15:50 | Emergency (ER) | payer MEDICARE, OTHER ==
[2024-03-16 16:49] LABS: BASOPHILS PERCENT AUTO 0.6 % (0.0-1.0); EOSINOPHILS PERCENT AUTO 1.6 % (1.0-3.0); HEMATOCRIT 37.7 % (37.0-47.0); HEMOGLOBIN 11.9 g/dL (12.0-16.0); LYMPHOCYTES PERCENT AUTO 31.6 % (20.5-50.1); MEAN CORPUSCULAR HEMOGLOBIN 30.1 pg (27.0-34.0); MEAN CORPUSCULAR HGB CONC 31.6 g/dL (33.0-35.0); MEAN CORPUSCULAR VOLUME 95.2 fL (80-100); NEUTROPHILS PERCENT AUTO 60.2 % (42.2-75.2); PLATELET COUNT,PLT 181 10^3/uL (150-450); RED BLOOD CELL COUNT 3.96 10^6/uL (4.2-5.4)
[2024-03-16 17:27] LABS: LACTIC ACID 3.9 mmol/L (0.4-2.0)
[2024-03-16 17:29] LABS: ALBUMIN 1.8 g/dL (3.4-5.0); ANION GAP 11.5 mEq/L (7-13); BILIRUBIN TOTAL 0.5 mg/dL (0.2-1.0); BUN/CREATININE RATIO 2.3 (No establ ref range); CALCIUM 7.2 mg/dL (8.5-10.1); CREATININE 2.21 mg/dL (0.55-1.02); EST CRCL DRUG DOSING (CG) 16.59 mL/min; POTASSIUM,K 3.5 mmol/L (3.5-5.1); PROTEIN TOTAL,TP 4.4 g/dL (6.4-8.2)
[2024-03-16 17:34] LABS: A/G RATIO 0.69
[2024-03-16] MEDS: Sodium Chloride 0.9% 500 ML IV SCH (17:37)
[2024-03-16 19:05] LABS: LACTIC ACID 1.8 mmol/L (0.4-2.0)
[2024-03-16 19:46] VITALS: PULSE 86
[2024-03-16 19:47] VITALS: BP 115/82
== END 2024-03-16 19:26 | disposition still patient (30) ==
LOC: DL.ED 15:50
DX: I95.9 Hypotension, unspecified (principal); R74.02 Elevation of levels of lactic acid dehydrogenase [LDH]; R79.89 Other specified abnormal findings of blood chemistry; I12.0 Hypertensive chronic kidney disease with stage 5 chronic kidney disease or end stage renal disease; N18.6 End stage renal disease; M19.90 Unspecified osteoarthritis, unspecified site; E11.22 Type 2 diabetes mellitus with diabetic chronic kidney disease; E03.9 Hypothyroidism, unspecified; Z86.16 Personal history of COVID-19; Z90.49 Acquired absence of other specified parts of digestive tract; Z88.5 Allergy status to narcotic agent; Z88.8 Allergy status to other drugs, medicaments and biological substances; Z79.82 Long term (current) use of aspirin; Z79.4 Long term (current) use of insulin; Z79.51 Long term (current) use of inhaled steroids; Z79.890 Hormone replacement therapy; Z79.899 Other long term (current) drug therapy; Z99.2 Dependence on renal dialysis
CPT/HCPCS: 36415; 71045; 80053; 83605; 84484; 85025; 87040; 93005; 93010; 96360; 99285; J7040

== ENCOUNTER 2024-07-11 23:16 | Emergency (ER) | payer MEDICARE, OTHER ==
[2024-07-11 23:58] LABS: BASOPHILS PERCENT AUTO 0.6 % (0.0-1.0); EOSINOPHILS PERCENT AUTO 0.8 % (1.0-3.0); HEMATOCRIT 36.5 % (37.0-47.0); HEMOGLOBIN 11.4 g/dL (12.0-16.0); LYMPHOCYTES PERCENT AUTO 18.7 % (20.5-50.1); MEAN CORPUSCULAR HEMOGLOBIN 29.3 pg (27.0-34.0); MEAN CORPUSCULAR HGB CONC 31.2 g/dL (33.0-35.0); MEAN CORPUSCULAR VOLUME 93.8 fL (80-100); MONOCYTES PERCENT AUTO 5.1 % (2-8); NEUTROPHILS PERCENT AUTO 74.8 % (42.2-75.2); PLATELET COUNT,PLT 169 10^3/uL (150-450); RED BLOOD CELL COUNT 3.89 10^6/uL (4.2-5.4); WHITE BLOOD CELL COUNT,WBC 8.3 10^3/uL (5.0-10.0)
[2024-07-12] MEDS: Ondansetron 4 MG in Sodium Chloride 0.9% 50 ML IV ONE (00:05)
[2024-07-12] MEDS: Pantoprazole 40 MG Vial IVPUSH ONE (00:05)
[2024-07-12] MEDS: Ondansetron 4 MG/2 ML SDV IVPUSH ONE (00:05)
[2024-07-12] MEDS: Pantoprazole 40 MG in Sodium Chloride 0.9% 100 ML IV ONE (00:05)
[2024-07-12 00:11] LABS: ALANINE AMINOTRANSFERASE,ALT 14 U/L (14-59); ALBUMIN 2.3 g/dL (3.4-5.0); ALKALINE PHOSPHATASE 96 U/L (46-116); ASPARTATE AMNIOTRANSFERASE,AST 17 U/L (15-37); BILIRUBIN TOTAL 0.5 mg/dL (0.2-1.0); BLOOD UREA NITROGEN,BUN 17 mg/dL (7-18); BUN/CREATININE RATIO 4.8 (No establ ref range); C-REACTIVE PROTEIN 0.84 ng/dL (<=0.50); CALCIUM 8.5 mg/dL (8.5-10.1); CARBON DIOXIDE,CO2 25 mmol/L (21-32); CHLORIDE,CL 100 mmol/L (98-107); CREATININE 3.51 mg/dL (0.55-1.02); GLUCOSE RANDOM 121 mg/dL (70-99); MAGNESIUM 1.9 mg/dL (1.8-2.4); POTASSIUM,K 3.4 mmol/L (3.5-5.1); PROTEIN TOTAL,TP 5.4 g/dL (6.4-8.2)
[2024-07-12 00:12] LABS: LACTIC ACID 1.3 mmol/L (0.4-2.0)
[2024-07-12 00:15] LABS: ANION GAP 11.4 mEq/L (7-13); SODIUM,NA 133 mmol/L (136-145)
[2024-07-12 00:16] LABS: A/G RATIO 0.74; ESTIMATED GFR 13 mL/min (>=60)
[2024-07-12 01:13] LABS: B-TYPE NATRIURETIC PEPTIDE,BNP 810 pg/ml (0-100)
[2024-07-12 02:09] VITALS: BP 118/55; PULSE 73
[2024-07-12] MEDS: Promethazine 25 MG/ML SDV IM ONE (02:33)
== END 2024-07-12 02:48 ==
LOC: DL.ED 23:16
DX: T45.511A Poisoning by anticoagulants, accidental (unintentional), initial encounter (principal); T50.1X1A Poisoning by loop [high-ceiling] diuretics, accidental (unintentional), initial encounter; T50.3X1A Poisoning by electrolytic, caloric and water-balance agents, accidental (unintentional), initial encounter; I21.4 Non-ST elevation (NSTEMI) myocardial infarction; N18.9 Chronic kidney disease, unspecified; N18.6 End stage renal disease; E11.22 Type 2 diabetes mellitus with diabetic chronic kidney disease; E87.6 Hypokalemia; Z99.2 Dependence on renal dialysis; I10 Essential (primary) hypertension; E03.9 Hypothyroidism, unspecified; Z88.8 Allergy status to other drugs, medicaments and biological substances; Z79.890 Hormone replacement therapy; Z79.899 Other long term (current) drug therapy; Z90.49 Acquired absence of other specified parts of digestive tract
CPT/HCPCS: 36415; 70450; 72125; 73700; 74176; 80053; 83605; 83735; 83880; 84484; 85025; 86140; 93005; 96372; 96374; 96375; 99285; J2405; J2470; J2550; 93010

== ENCOUNTER 2024-12-14 09:48 | Emergency (ER) | payer MEDICARE, OTHER ==
[2024-12-14] MEDS: Iopamidol 612 MG/ML 100 ML Bottle IVPUSH ONE (09:59)
[2024-12-14 10:09] LABS: BASOPHILS PERCENT AUTO 1.2 % (0.0-1.0); EOSINOPHILS PERCENT AUTO 1.7 % (1.0-3.0); LYMPHOCYTES PERCENT AUTO 27.2 % (20.5-50.1); MONOCYTES PERCENT AUTO 5.6 % (2-8); NEUTROPHILS PERCENT AUTO 64.3 % (42.2-75.2); PLATELET COUNT,PLT 103 10^3/uL (150-450); RED BLOOD CELL COUNT 3.15 10^6/uL (4.2-5.4); WHITE BLOOD CELL COUNT,WBC 4.1 10^3/uL (5.0-10.0)
[2024-12-14] MEDS: Ondansetron 4 MG/2 ML SDV IVPUSH ONE (11:05)
[2024-12-14 11:13] LABS: LACTIC ACID 0.8 mmol/L (0.4-2.0)
[2024-12-14 11:19] LABS: ALANINE AMINOTRANSFERASE,ALT 15 U/L (14-59); ASPARTATE AMNIOTRANSFERASE,AST 20 U/L (15-37); BILIRUBIN TOTAL 1.0 mg/dL (0.2-1.0); BLOOD UREA NITROGEN,BUN 19 mg/dL (7-18); CARBON DIOXIDE,CO2 27 mmol/L (21-32); CHLORIDE,CL 103 mmol/L (98-107); GLUCOSE RANDOM 76 mg/dL (70-99); POTASSIUM,K 3.4 mmol/L (3.5-5.1); PROTEIN TOTAL,TP 4.7 g/dL (6.4-8.2); SODIUM,NA 146 mmol/L (136-145)
[2024-12-14 11:20] LABS: CREATININE 5.99 mg/dL (0.55-1.02)
[2024-12-14 11:21] LABS: A/G RATIO 0.68; ESTIMATED GFR 7 mL/min (>=60)
[2024-12-14] MEDS: Iopamidol 755 Mg/ML 100 ML Bottle IVPUSH ONE (12:17)
[2024-12-14 16:30] VITALS: BP 116/65; PULSE 65
== END 2024-12-14 16:29 ==
LOC: DL.ED 09:48
DX: I26.99 Other pulmonary embolism without acute cor pulmonale (principal); J18.9 Pneumonia, unspecified organism; E11.649 Type 2 diabetes mellitus with hypoglycemia without coma; I10 Essential (primary) hypertension; E03.9 Hypothyroidism, unspecified; Z88.5 Allergy status to narcotic agent; Z88.8 Allergy status to other drugs, medicaments and biological substances; Z88.1 Allergy status to other antibiotic agents; Z79.01 Long term (current) use of anticoagulants; Z79.890 Hormone replacement therapy; Z79.899 Other long term (current) drug therapy; Z99.2 Dependence on renal dialysis; Z86.16 Personal history of COVID-19; Z90.49 Acquired absence of other specified parts of digestive tract
CPT/HCPCS: 36415; 71045; 71275; 74177; 80053; 82947; 83605; 83690; 83735; 84484; 85025; 87040; 87428; 93005; 96361; 96372; 96374; 99285; A9270; J2270; J2405; J7030; Q9967